=== PATIENT | female | born 1965 | race Caucasian/White ===

== ENCOUNTER 2019-09-29 14:24 | Emergency (ER) | payer BC, SELFPAY ==
[2019-09-29 14:34] VITALS: BP 150/76; PULSE 87; RESP 16; TEMP 36.8; O2SAT 99; BMI 34.5
--- NOTE | 2019-09-29 15:19 | CT_ITS ---
WS: [id number] CT abdomen pelvis w con* [id number] REASON FOR EXAM: abd pain IV CONTRAST ADMINISTERED: 95 mL TOTAL EXAM DLP: 1068.[address] scans at [facility] use at least one of these dose optimization techniques: automat ed exposure control; mA and/or kV adjustment per patient size (includes targeted exams where dose is matched to clinical indication); or iterative reconstruction. FINDINGS: The lower lung siegel are normal. The liver show normal enhancement. No filling defects or masses. The gallbladder appeared to be sonolucent no stones are seen. The pancreas head, body, tail were normal. The spleen was of normal size the liver normal Both adrenal glands were normal no adenomas are seen. The aorta inferior vena cava were normal. Both the right and left kidneys were normal no hydronephrosis no hydroureter no stones. The ureters were patent down to the bladder. The appendix is well identified and not distended. The large and small bowel pattern show normal appearance. The small bowel patterns were normal. The descending colon shows isolated diverticulosis in the sigmoid lower lower descending colon but no definite diverticulitis. The uterus was normal. No adnexal masses. There is fecal stasis in the rectal wall but no masses are seen. The urinary bladder was smooth in outline showed no abnormalities. The lumbar spine was normal other than mild degenerate changes. CT/CT abdomen pelvis w con* [id number] IMPRESSION: Diverticulosis of the lower descending colon sigmoid colon. No diverticulitis.
[2019-09-29 15:20] LABS: Basophils % 0.4 %; Eosinophils # 0.1 10^3/uL (0.0-0.8); Eosinophils % 0.9 %; Hemoglobin 13.1 g/dL (11.5-15.3); Lymphocytes # 2.5 10^3/uL (0.8-4.8); Lymphocytes % 29.5 %; Mean Corpuscular HGB Conc 31.2 g/dL (30.0-36.0); Mean Corpuscular Hemoglobin 28.2 pg (28.0-34.0); Mean Corpuscular Volume 90.5 fL (81-99); Monocytes # 0.6 10^3/uL (0.2-0.9); Monocytes % 7.4 %; Neutrophils # 5.3 10^3/uL (1.8-7.7); Neutrophils % 61.6 %; Nucleated Red Blood Cells % 0 %; Platelet Count 322 10^3/cmm (130-400); Red Blood Count 4.64 10^6/uL (4.1-5.3); Red Cell Distribution Width 12.9 % (12.1-15.1); White Blood Count 8.5 10^3/uL (4.0-10.0)
[2019-09-29 15:24] LABS: Urine Appearance Clear (CLEAR); Urine Color Yellow (Yellow)
[2019-09-29 15:25] LABS: Add Urine Microscopic? YES; Bilirubin Urine Neg (NEGATIVE); Blood Urine 2+ (Negative); Glucose Urine UA Norm (Normal); Ketones Urine Negative (Negative); Leukocyte Esterase Urine Negative (Negative); Nitrate Urine Negative (Negative); Protein Urine Neg (Negative); Specific Gravity, Urine 1.015 (1.005-1.030); Urobilinogen Urine Norm (Negative); pH Urine 5 (5-7)
--- NOTE | 2019-09-29 15:26 | W.ED.BACK ---
HPI - Back Pain/Injury General: Chief Complaint: Back Pain/Injury Stated Complaint: r side/low back pain Time Seen by Provider: 09/29/19 15:02 History of Present Illness: HPI Narrative: 54-year-old female comes in with flank pain that she has had for the last several weeks. Seen Dr. Cooper in the office has 2 rounds of oral antibiotics still seems to keep coming back. She is also been started on a PPI she has noticed that it is a little better when she has food in her stomach little worse when her stomach is empty. She does not notice particular type of foods that worsen it. She has had quite a bit of nausea with it but no vomiting or diarrhea and at various times she had bloating and reflux with it she denies any hematochezia melena hematemesis or coffee-ground emesis. At one point she thought she MD elicited complaint: back pain Pertinent past history: prior back pain Timing: intermittent Severity: severe Similar Symptoms Previously: Yes Quality: sharp and stabbing Associated symptoms: Reports abdominal pain and nausea; Deny chills, change in bowel habits, dysuria, fatigue, fecal incontinence, fever(s), hematuria, urinary frequency, urinary urgency or vomiting Treatments prior to arrival: other medications (PPIs) Review of Systems Const: Denies: fever(s), chills, body aches, change in appetite, fatigue or malaise ENMT: Denies: throat pain, ear or mastoid pain, nasal discharge or nasal congestion Card: Denies: chest pain, edema, dyspnea on exertion or orthopnea Resp: Denies: dyspnea, productive cough or non-productive cough GI: Reports: abdominal pain and nausea; Denies: vomiting, fecal incontinence or change in bowel habits : Denies: dysuria, urinary urgency or hematuria Skin/Breast: Denies: rash or pruritus PFSH ED PFSH: Medical History (Updated 09/29/19 @ 17:47 by Carlos Faustin DO) Achilles tendonitis Follows with Dr. Ma and just takes ibuprofen as needed for pain No pertinent past medical history Denies history of: High Blood Pressure, Diabetes, Heart, Lung, Liver, Kidney, Thyroid, Bleeding Problems, Clotting Problems Her primary care provider is Dr. Cooper. Thickened endometrium Surgical History (Updated 09/29/19 @ 17:27 by Josefina August RN) S/P section 06/24/1989--performed by Dr. Bach at [facility] S/P tubal ligation 06/24/1989--Performed by Dr. Bach at [facility] at time of section. Social History Smoking and tobacco status: former smoker Physical Exam Const: COMMON NORMALS: no acute distress GENERAL APPEARANCE: cooperative and comfortable ORIENTATION/CONSCIOUSNESS: Yes awake, Yes oriented to person, Yes oriented to place and Yes oriented to time HENMT: COMMON NORMALS: normocephalic, atraumatic, hearing grossly normal bilaterally, external ears normal, EAC's normal, TM's normal bilaterally, Normal nasal mucous membranes and turbinates present, moist oral mucous membranes and oropharynx normal HEAD & SCALP: normocephalic and atraumatic NOSE: Normal nasal mucous membranes and turbinates present EXTERNAL EAR: Yes external ears normal EXTERNAL AUDITORY CANAL: EAC's normal TYMPANIC MEMBRANE: TM's normal bilaterally Eye: COMMON NORMALS: Equal, round and reactive pupils present, EOMs intact bilaterally, conjunctivae normal and no scleral icterus CONJUNCTIVA: Yes conjunctivae normal PUPIL: Yes Equal, round and reactive pupils present Neck/C-Spine: COMMON NORMALS: full ROM, no lymphadenopathy, supple and no JVD Lymph: LYMPHATIC: no lymphadenopathy noted and no lymphedema noted Resp: COMMON NORMALS: normal respiratory effort, No retractions, No use of accessory muscles and clear to auscultation bilaterally AUSCULTATION: clear to auscultation bilaterally Cardio: COMMON NORMALS: no JVD, regular rate, regular rhythm and No murmurs present (Cardio) RATE: regular rate RHYTHM: regular rhythm GI: COMMON NORMALS: Soft to palpation and No hepatosplenomegaly present AUSCULTATION: Yes normoactive bowel sounds PALPATION: Yes Soft to palpation, No Tenderness to palpation present (GI), No Guarding due to palpation present (GI) and Yes No hepatosplenomegaly present Extremity: COMMON NORMALS: normal to inspection, capillary refill normal, no clubbing, cyanosis or edema, no calf tenderness and no pedal edema Neuro: SENSORIUM/ORIENTATION: Yes oriented to person, Yes oriented to place and Yes oriented to time Skin: COMMON NORMALS: no rashes or lesions noted GENERAL SKIN EXAM: no rashes or lesions noted Course Vital Signs: Vital signs: Vital Signs Temperature 98.3 F 09/29/19 14:34 Pulse Rate 77 09/29/19 15:33 Respiratory Rate 16 09/29/19 15:33 Blood Pressure 128/72 09/29/19 15:33 Pulse Oximetry 98 09/29/19 15:33 MDM - Back Pain/Injury Lab Data: Labs: Lab Results 09/29/19 09/29/19 09/29/19 Range/Units 14:51 15:15 15:15 WBC 8.5 (4.0-10.0) 10^3/ uL RBC 4.64 (4.1-5.3) 10^6/u L Hgb 13.1 (11.5-15.3) g/dL Hct 42.0 (37.0-47.0) % MCV 90.5 (81-99) fL MCH 28.2 (28.0-34.0) pg MCHC 31.2 (30.0-36.0) g/dL RDW 12.9 (12.1-15.1) % Plt Count 322 (130-400) 10^3/c mm MPV 10.0 (7.4-10.4) fL Neut % (Auto) 61.6 % Lymph % (Auto) 29.5 % [place] % (Auto) 7.4 % Eos % (Auto) 0.9 % Baso % (Auto) 0.4 % Neut # (Auto) 5.3 (1.8-7.7) 10^3/u L Lymph # (Auto) 2.5 (0.8-4.8) 10^3/u L [place] # (Auto) 0.6 (0.2-0.9) 10^3/u L Eos # (Auto) 0.1 (0.0-0.8) 10^3/u L Baso # (Auto) 0.0 (0.0-0.1) 10^3/u L Nucleated RBC % (a uto) 0 % Nucleated RBCs # 0.0 /100WBC Sodium 138 (136-145) mmol/L Potassium 3.9 (3.5-5.1) mmol/L Chloride 100 (98-107) mmol/L Carbon Dioxide 26 (22-29) mmol/L Anion Gap 15.9 (5-19) BUN 16 (6-20) mg/dL Creatinine 0.7 (0.5-0.9) mg/dL GFR Calculation 87.9 L (90-130) mL/min Glucose 101 (65-115) mg/dL Calculated Osmolal ity 282 L (285-295) mOsm/k g Calcium 9.7 (8.5-10.5) mg/dL Total Bilirubin 0.2 (0.15-1.2) mg/dL AST 16 (0-32) U/L ALT 13 (0-33) U/L Alkaline Phosphata se 96 (35-105) IU/L Total Protein 7.2 (6.6-8.7) g/dL Albumin 4.3 (3.5-5.2) g/dL Globulin 2.9 (1.3-4.6) g/dL Urine Color Yellow (Yellow) Urine Appearance Clear (CLEAR) Urine pH 5 (5-7) Ur Specific Gravit y 1.015 (1.005-1.030) Urine Protein Neg (Negative) Urine Glucose (UA) Norm (Normal) Urine Ketones Negative (Negative) Urine Blood 2+ H (Negative) Urine Nitrate Negative (Negative) Urine Bilirubin Neg (NEGATIVE) Urine Urobilinogen Norm (Negative) mg/dL Ur Leukocyte Kay ase Negative (Negative) Urine RBC 5-10 H (0-2) /hpf Urine WBC None (0-5) /hpf Ur Squamous Epith Cells 10-15 H (0-5) Urine Bacteria Trace (NONE) Discharge Plan Discharge Patient Disposition: Home, Self-Care Clinical Impression: Hematuria, Chronic interstitial cystitis Condition: Stable Prescriptions: New nitrofurantoin monohyd/m-cryst [Macrobid] 100 mg capsule 100 mg PO BID 7 Days Qty: 14 RF: 0 No Action Multiple Vitamins Tablet 1 tab PO DAILY RF: 0 pantoprazole 40 mg tablet,delayed release (DR/EC) 40 mg PO BID RF: 0 albuterol sulfate 90 mcg/actuation HFA aerosol inhaler 2 puff INHALATION Q4H PRN (Reason: Shortness Of Breath) RF: 0 Discharge Orders: Discharge Order (Routine); Ordered 09/29/19 Ordered By: Carlos Faustin Referrals: Misbah Cooper DO [Primary Care Provider] - Coding Level of Care Code ED Conductor Pullman for Chg Annamarie
[2019-09-29 15:27] LABS: Add Urine Culture? No; Bacteria Urine TRACE
[2019-09-29 15:33] VITALS: BP 128/72; PULSE 77; RESP 16; O2SAT 98
[2019-09-29 15:35] LABS: Alanine Aminotransferase 13 U/L (0-33); Albumin Level 4.3 g/dL (3.5-5.2); Alkaline Phosphatase 96 IU/L (35-105); Anion Gap 15.9 (5-19); Aspartate Amino Transferase 16 U/L (0-32); Blood Urea Nitrogen 16 mg/dL (6-20); Calcium 9.7 mg/dL (8.5-10.5); Carbon Dioxide 26 mmol/L (22-29); Chloride 100 mmol/L (98-107); Globulin 2.9 g/dL (1.3-4.6); Glomerular Filtration Rate 87.9 mL/min (90-130); Glucose 101 mg/dL (65-115); Osmolality Calculated 282 mOsm/kg (285-295); Potassium 3.9 mmol/L (3.5-5.1); Sodium 138 mmol/L (136-145); Total Bilirubin 0.2 mg/dL (0.15-1.2); Total Protein 7.2 g/dL (6.6-8.7)
[2019-09-29] MEDS: sodium chloride 0.9% 1,000 ML 999 ML IV (15:44)
--- NOTE | 2019-09-29 16:00 | PC.NURSE ---
pt in CT by stretcher with tech
[2019-09-29] MEDS: iohexol 300 mg/mL 100 mL Btl IV (16:01)
[2019-09-29 17:47] VITALS: BP 134/73; PULSE 79; O2SAT 99
[2019-09-29 18:39] VITALS: BP 134/73; PULSE 75; RESP 17; O2SAT 98
== END 2019-09-29 18:39 | disposition home or self-care (01) ==
PROVIDERS: Emergency Provider Family Medicine; Family Provider Electrodiagnostic Medicine; PCP Electrodiagnostic Medicine
DX: N30.11 Interstitial cystitis (chronic) with hematuria (principal); Z87.891 Personal history of nicotine dependence
CPT/HCPCS: 12345; 36415; 74177; 80053; 81001; 85025; 96360; 99282; 99283; J7030; Q9967

== ENCOUNTER 2019-10-25 06:40 | Outpatient (CLI) | payer BC, SELFPAY ==
--- NOTE | 2019-10-25 08:00 | US_ITS ---
WS: [id number] ULTRASOUND ABDOMEN CLINICAL INFORMATION: RUQ ABD PAIN COMPARISON: Ultrasound 2014 FINDINGS: Liver Size: Normal. Craniocaudal length: 15.4 cm. Echogenicity: Diffuse fatty infiltration Surface nodularity: None. Mass (size and location): None. Bile ducts Intrahepatic ducts: Normal. Common bile duct diameter: 0.3 cm. Gallbladder Small gallbladder polyp unchanged since 2014 Gallstones: None. Gallbladder sludge: None. Gallbladder wall thickening: None. Pericholecystic fluid: None. Sonographic Mary sign: Absent. Pancreas Normal as visualized. Spleen Splenomegaly: None. Craniocaudal length: 9.6 cm. Right kidney: Normal. Hydronephrosis: None. Size: 10.8 cm x 4.1 cm x 5.8 cm Left kidney: Left renal cyst measuring 1.3 x 1.3 cm Hydronephrosis: None. Size: 10.6 cm x 5.4 cm x 4.7 cm. Abdominal aorta and IVC Visualized portions are normal. Ascites: None. US/US abdomen complete* [id number] IMPRESSION: 1. Mild diffuse fatty infiltration of the liver. 2. Small gallbladder polyp unchanged since 2014 3. Left renal cyst measuring 1.3 CM.
== END 2019-10-25 06:41 | disposition home or self-care (01) ==
PROVIDERS: Family Provider Electrodiagnostic Medicine; PCP Electrodiagnostic Medicine; Visit Provider Electrodiagnostic Medicine
DX: R10.9 Unspecified abdominal pain (principal); G89.29 Other chronic pain
CPT/HCPCS: 76700

== ENCOUNTER 2019-11-26 11:04 | Emergency (ER) | payer BC, SELFPAY ==
[2019-11-26 11:10] VITALS: BP 153/76; PULSE 82; RESP 16; TEMP 36.9; O2SAT 96; BMI 32.9
--- NOTE | 2019-11-26 11:10 | PC.NURSE ---
Patient given urine cup at this time. Patient educated correct way to collect clean catch urine.
[2019-11-26 12:38] LABS: Basophils % 0.4 %; Eosinophils % 0.4 %; Hematocrit 44.5 % (37.0-47.0); Hemoglobin 13.8 g/dL (11.5-15.3); Lymphocytes % 27.4 %; Mean Corpuscular Hemoglobin 28.2 pg (28.0-34.0); Mean Corpuscular Volume 90.8 fL (81-99); Mean Platelet Volume 10.2 fL (7.4-10.4); Monocytes # 0.5 10^3/uL (0.2-0.9); Monocytes % 6.1 %; Neutrophils # 4.83 10^3/uL (1.8-7.7); Neutrophils % 65.6 %; Nucleated Red Blood Cells % 0 %; Platelet Count 309 10^3/cmm (130-400); Red Cell Distribution Width 12.5 % (12.1-15.1); White Blood Count 7.4 10^3/uL (4.0-10.0)
--- NOTE | 2019-11-26 12:53 | W.ED.BACK ---
HPI - Back Pain/Injury General: Chief Complaint: Back Pain/Injury Stated Complaint: LOW BACK PAIN Time Seen by Provider: 11/26/19 12:22 History of Present Illness: HPI Narrative: Patient complains about chronic low back pain radiating to the right abdomen area since August elicited complaint: back pain Pertinent past history: prior back pain Onset (ago): month(s) Timing: intermittent Severity: mild Quality: aching Associated symptoms: Reports no associated symptoms and abdominal pain; Deny chills, fever(s), nausea or vomiting Review of Systems Const: Denies: fever(s), chills or body aches Eyes: Denies: change in vision or blurry vision ENMT: Denies: throat pain or nasal congestion Card: Denies: chest pain or dyspnea on exertion Resp: Denies: dyspnea, productive cough or non-productive cough GI: Reports: abdominal pain and other (Right flank pain); Denies: nausea or vomiting Musc: Reports: back pain (Pain with getting out of a chair and sitting in chair her low back); Denies: extremity pain Skin/Breast: Denies: rash Neuro: Denies: headache(s) Psych: Denies: anxiety or depression Slava/Lymph: Denies: easy bruising PFSH ED PFSH: Medical History (Updated 11/26/19 @ 13:20 by HOLLY Jacobo) No pertinent past medical history Denies history of: High Blood Pressure, Diabetes, Heart, Lung, Liver, Kidney, Thyroid, Bleeding Problems, Clotting Problems Her primary care provider is Dr. Cooper. Surgical History S/P section 06/24/1989--performed by Dr. Bach at [facility] S/P tubal ligation 06/24/1989--Performed by Dr. Bach at [facility] at time of section. Family History Mother Diabetes Heart disease Stroke Sister Lung cancer Other Hypertension Denies family history of Colon cancer Ovarian cancer Hyperlipidemia Breast cancer Uterine cancer Thyroid condition Social History (Updated 10/04/19 @ 18:14 by Lilli Cheek MD) Smoking and tobacco status: former smoker Additional social history: - Tobacco Use: Smoked 1 pack of cigarettes a week as a teenager quit at the age of 21 and denies any tobacco use since then. Drug Use: Denies Alcohol Use: Denies Work/Study Status: Does not work Physical Exam Const: COMMON NORMALS: no acute distress, average body habitus and patient oriented x3 HENMT: COMMON NORMALS: normocephalic HEAD & SCALP: normal to inspection and normocephalic FACE & SINUS: normal facial exam Eye: COMMON NORMALS: conjunctivae normal GENERAL EYE: appearance normal, both eyes and all related structures CONJUNCTIVA: Yes conjunctivae normal Neck/C-Spine: COMMON NORMALS: no JVD Chest: COMMONS NORMALS: normal inspection of the chest Resp: COMMON NORMALS: normal respiratory effort Cardio: COMMON NORMALS: no JVD GI: COMMON NORMALS: Normal to inspection, nondistended, normoactive bowel sounds present Extremity: COMMON NORMALS: normal to inspection and full ROM Neuro: COMMON NORMALS: patient oriented x3 Course Vital Signs: Vital signs: Vital Signs Temperature 98.4 F 11/26/19 11:10 Pulse Rate 82 11/26/19 11:10 Respiratory Rate 16 11/26/19 11:10 Blood Pressure 153/76 11/26/19 11:10 Pulse Oximetry 96 11/26/19 11:10 MDM - Back Pain/Injury MDM Narrative: Medical decision making narrative: Urine cytology was ordered via the lab. I explained to the patient that we had to rule out any kind of cancer also with the onset hematuria. Also discussed that possibly could be a bulging disc in her low back that could be causing her pain that radiated. Lab Data: Labs: Lab Results 11/26/19 11/26/19 11/26/19 Range/Units 11:24 12:15 12:15 WBC 7.4 (4.0-10.0) 10^3/ uL RBC 4.90 (4.1-5.3) 10^6/u L Hgb 13.8 (11.5-15.3) g/dL Hct 44.5 (37.0-47.0) % MCV 90.8 (81-99) fL MCH 28.2 (28.0-34.0) pg MCHC 31.0 (30.0-36.0) g/dL RDW 12.5 (12.1-15.1) % Plt Count 309 (130-400) 10^3/c mm MPV 10.2 (7.4-10.4) fL Neut % (Auto) 65.6 % Lymph % (Auto) 27.4 % [place] % (Auto) 6.1 % Eos % (Auto) 0.4 % Baso % (Auto) 0.4 % Neut # (Auto) 4.83 (1.8-7.7) 10^3/u L Lymph # (Auto) 2.0 (0.8-4.8) 10^3/u L [place] # (Auto) 0.5 (0.2-0.9) 10^3/u L Eos # (Auto) 0.0 (0.0-0.8) 10^3/u L Baso # (Auto) 0.0 (0.0-0.1) 10^3/u L Nucleated RBC % (a uto) 0 % Nucleated RBCs # 0.0 /100WBC Sodium 140 (136-145) mmol/L Potassium 3.5 (3.5-5.1) mmol/L Chloride 102 (98-107) mmol/L Carbon Dioxide 26 (22-29) mmol/L Anion Gap 15.5 (5-19) BUN 19 (6-20) mg/dL Creatinine 0.8 (0.5-0.9) mg/dL GFR Calculation 75.0 L (90-130) mL/min Glucose 119 H (65-115) mg/dL Calculated Osmolal ity 288 (285-295) mOsm/k g Calcium 9.5 (8.5-10.5) mg/dL Total Bilirubin 0.2 (0.15-1.2) mg/dL AST 15 (0-32) U/L ALT 12 (0-33) U/L Alkaline Phosphata se 110 H (35-105) IU/L Total Protein 7.8 (6.6-8.7) g/dL Albumin 4.4 (3.5-5.2) g/dL Globulin 3.4 (1.3-4.6) g/dL Urine Color Yellow (Yellow) Urine Appearance Clear (CLEAR) Urine pH 5.0 (5-7) Ur Specific Gravit y 1.010 (1.005-1.030) Urine Protein Neg (Negative) Urine Glucose (UA) Norm (Normal) Urine Ketones Negative (Negative) Urine Blood 2+ H (Negative) Urine Nitrate Negative (Negative) Urine Bilirubin Neg (NEGATIVE) Urine Urobilinogen Norm (Negative) mg/dL Ur Leukocyte Kay ase Negative (Negative) Urine RBC 5-10 H (0-2) /hpf Urine WBC None (0-5) /hpf Ur Squamous Epith Cells 15-25 H (0-5) Amorphous Sediment Not Reportable Urine Bacteria Trace (NONE) Discharge Plan Discharge Patient Disposition: Home Clinical Impression: Hematuria Qualifiers: Hematuria type: benign essential microscopic Qualified Code(s): R31.1 - Benign essential microscopic hematuria Condition: Stable Prescriptions: No Action Multiple Vitamins Tablet 1 tab PO DAILY RF: 0 pantoprazole 40 mg tablet,delayed release (DR/EC) 40 mg PO BID RF: 0 albuterol sulfate 90 mcg/actuation HFA aerosol inhaler 2 puff INHALATION Q4H PRN (Reason: Shortness Of Breath) RF: 0 Discharge Orders: Discharge Order (Routine); Ordered 11/26/19 Ordered By: Benitez Gonzales Referrals: Misbah Cooper DO [Primary Care Provider] - Discharge Diet: Usual diet Discharge Activity: Resume usual activity Patient Instructions: Hematuria - Female Activity Restrictions/Additional Instructions: Follow-up with Dr. Cooper see about getting referral to Dr. Christiansen for onset of hematuria. Await lab results for cytology on the urine. Can visit chiropractor right now to see if that would help with possibility of bulging disc in the back. Coding Level of Care Code ED Card Cutter Helper for Rafia Fwd Exam Comprehensive
[2019-11-26 12:56] LABS: Alanine Aminotransferase 12 U/L (0-33); Albumin Level 4.4 g/dL (3.5-5.2); Alkaline Phosphatase 110 IU/L (35-105); Anion Gap 15.5 (5-19); Aspartate Amino Transferase 15 U/L (0-32); Blood Urea Nitrogen 19 mg/dL (6-20); Calcium 9.5 mg/dL (8.5-10.5); Carbon Dioxide 26 mmol/L (22-29); Chloride 102 mmol/L (98-107); Globulin 3.4 g/dL (1.3-4.6); Glucose 119 mg/dL (65-115); Osmolality Calculated 288 mOsm/kg (285-295); Potassium 3.5 mmol/L (3.5-5.1); Sodium 140 mmol/L (136-145); Total Bilirubin 0.2 mg/dL (0.15-1.2); Total Protein 7.8 g/dL (6.6-8.7)
[2019-11-26 13:04] LABS: Add Urine Microscopic? YES; Bilirubin Urine Neg (NEGATIVE); Blood Urine 2+ (Negative); Glucose Urine UA Norm (Normal); Ketones Urine Negative (Negative); Leukocyte Esterase Urine Negative (Negative); Nitrate Urine Negative (Negative); Protein Urine Neg (Negative); Urine Appearance Clear (CLEAR); Urine Color Yellow (Yellow); Urobilinogen Urine Norm (Negative)
[2019-11-26 13:05] LABS: Add Urine Culture? No; Bacteria Urine TRACE; Squamous Epithelial Cell Urine 15-25 (0-5)
[2019-11-26 13:46] VITALS: BP 144/92; PULSE 88; RESP 17; O2SAT 98
== END 2019-11-26 13:48 | disposition home or self-care (01) ==
PROVIDERS: Emergency Provider Nurse Practitioner Family; PCP Electrodiagnostic Medicine
DX: R31.1 Benign essential microscopic hematuria (principal); Z87.891 Personal history of nicotine dependence
CPT/HCPCS: 12345; 80053; 81001; 81003; 85025; 88112; 99281; 99282

== ENCOUNTER 2019-12-06 10:24 | Outpatient (CLI) | payer BC, SELFPAY ==
--- NOTE | 2019-12-06 10:30 | XRR_ITS ---
PROCEDURE INFORMATION: Exam: XR Lumbosacral Spine, 2 or 3 Views Exam date and time: 12/06/2019 10:50 AM Age: 54 years old Clinical indication: Sciatica and other: Hematuria; Left; Low back pain; Additional info: Back pain w/radiculopathy/hematuria/left sciatica TECHNIQUE: Imaging protocol: XR of the lumbosacral spine, 2 or 3 views. COMPARISON: CT abdomen pelvis w con* [id number] 09/29/2019 3:46 PM FINDINGS: Vertebrae: The lumbar vertebral bodies maintain height and alignment. No significant disc space narrowing, but there are small multilevel marginal osteophytes. Facet arthropathy present at L4-L5 and L5-S1. No acute fracture. Soft tissues: No acute soft tissue abnormality. XR/XR lumbar spine 2-3V* [id number] IMPRESSION: No acute osseous abnormality.
== END 2019-12-06 10:25 | disposition home or self-care (01) ==
LOC: RAD 10:28
PROVIDERS: PCP Electrodiagnostic Medicine; Visit Provider Electrodiagnostic Medicine
DX: M54.5 Low back pain (principal); M54.16 Radiculopathy, lumbar region; R31.9 Hematuria, unspecified; R10.9 Unspecified abdominal pain; M54.32 Sciatica, left side
CPT/HCPCS: 72100

== ENCOUNTER 2019-12-09 14:28 | Outpatient (CLI) | payer BC, SELFPAY ==
--- NOTE | 2019-12-09 15:00 | MM_ITS ---
WS: [id number] BILATERAL DIGITAL SCREENING MAMMOGRAPHY WITH CAD CLINICAL INFORMATION: screening HISTORY: Screening mammogram. No current complaints. COMPARISON: TECHNIQUE: Bilateral CC and MLO views. FINDINGS: The breasts are composed of heterogeneous fibroglandular density tissue, which can limit the detectio n of small underlying mass lesions. No suspicious mass, asymmetry, calcifications, or architectural d istortion. No evidence of malignancy. Punctate and lucent centered calcifications. MM/[place] [id number] IMPRESSION: BI-RADS: 2-Benign FOLLOW UP: 1 Year Follow-up Recommend return to annual screening mammography.
== END 2019-12-09 14:29 | disposition home or self-care (01) ==
LOC: RADSHAW 14:33
PROVIDERS: PCP Electrodiagnostic Medicine; Visit Provider Obstetrics & Gynecology
DX: Z12.31 Encounter for screening mammogram for malignant neoplasm of breast (principal)
CPT/HCPCS: 77067

== ENCOUNTER 2019-12-13 06:53 | Outpatient (CLI) | payer BC, SELFPAY ==
--- NOTE | 2019-12-13 07:37 | MR_ITS ---
WS: [id number] MRI LUMBAR SPINE NONCONTRAST HISTORY: LUMBAR DISC DISPLACEMENT, LUMBAR BACK PAIN W/RADICULOPATHY COMPARISON: None available. TECHNIQUE: Sagittal and axial multisequence imaging is submitted. Mild increase in thoracic kyphosis. Normal lumbar alignment with no compression fractures or marrow edema. Mild disc desiccation at L5-S1 without significant narrowing. Conus terminates normally at L1. L1-L2: Normal. L2-L3: Mild facet arthritis. No stenosis. L3-L4: Mild facet arthritis without stenosis. L4-L5: Mild annular disc bulging and osteophytic ridging. Mild ligamentum flavum hypertrophy and face t arthritis. Fluid in the facet joints. Very mild encroachment into the foramen and subarticular rece sses, slightly greater on the LEFT. No significant stenosis. L5-S1: Mild annular disc bulging. This is shallow central disc protrusion which is not contacting the thecal sac but the nerve roots. There is an annular fissure associated with the disc protrusion. Sma ll amount of fluid in the facet joints. Very mild narrowing of the LEFT foramen. Facet joint arthriti s greatest on the RIGHT. MR/MR lumbar spine wo con* [id number] IMPRESSION: 1. No significant high-grade central or foraminal stenosis. 2. Shallow central disc protrusion with annular fissure at L5-S1 without cord or nerve root contact. 3. Facet joint arthritis throughout the lumbar spine but most significant at L 5-S1 and greatest on the RIGHT. 4. Mild subarticular recess and foraminal encroachment at L4-5 without signifi cant stenosis.
== END 2019-12-13 06:54 | disposition home or self-care (01) ==
PROVIDERS: PCP Electrodiagnostic Medicine; Visit Provider Electrodiagnostic Medicine
DX: M51.26 Other intervertebral disc displacement, lumbar region (principal); M54.16 Radiculopathy, lumbar region; M51.27 Other intervertebral disc displacement, lumbosacral region
CPT/HCPCS: 72148

== ENCOUNTER → 2019-12-21 14:36 | Outpatient (BNVA) | payer BC, SELFPAY | PROVIDERS: PCP Electrodiagnostic Medicine; Visit Provider Urology | DX: R31.9 Hematuria, unspecified (principal); R33.8 Other retention of urine; N30.20 Other chronic cystitis without hematuria; N39.9 Disorder of urinary system, unspecified | CPT/HCPCS: 81001 ==

== ENCOUNTER → 2020-02-02 16:01 | Outpatient (BNVA) | payer BC, SELFPAY | PROVIDERS: PCP Electrodiagnostic Medicine; Visit Provider Urology | DX: N30.20 Other chronic cystitis without hematuria (principal) | CPT/HCPCS: 81001 ==

== ENCOUNTER → 2020-03-16 09:03 | Outpatient (BNVA) | payer BC, SELFPAY | PROVIDERS: PCP Electrodiagnostic Medicine; Visit Provider Nurse Practitioner Family | DX: N30.20 Other chronic cystitis without hematuria (principal) | CPT/HCPCS: 81003 ==

== ENCOUNTER → 2020-05-18 08:02 | Outpatient (BNVA) | payer OTHER, SELFPAY | PROVIDERS: PCP Electrodiagnostic Medicine; Visit Provider Urology | DX: N30.80 Other cystitis without hematuria (principal) | CPT/HCPCS: 81003 ==

== ENCOUNTER → 2020-06-01 16:30 | Outpatient (BNVA) | payer OTHER, SELFPAY | PROVIDERS: PCP Electrodiagnostic Medicine; Visit Provider Nurse Practitioner Family | DX: N30.20 Other chronic cystitis without hematuria (principal) | CPT/HCPCS: 81003; 87086 ==

== ENCOUNTER → 2020-06-12 10:23 | Outpatient (BNVA) | payer OTHER, SELFPAY | PROVIDERS: PCP Electrodiagnostic Medicine; Visit Provider Nurse Practitioner Family | DX: N30.20 Other chronic cystitis without hematuria (principal) | CPT/HCPCS: 81003 ==

== ENCOUNTER → 2020-07-19 09:43 | Outpatient (BNVA) | payer OTHER, SELFPAY | PROVIDERS: PCP Electrodiagnostic Medicine; Visit Provider Nurse Practitioner Family | DX: N30.20 Other chronic cystitis without hematuria (principal) | CPT/HCPCS: 81003; 87086 ==

== ENCOUNTER → 2020-07-25 08:17 | Outpatient (BNVA) | payer OTHER, SELFPAY | PROVIDERS: PCP Electrodiagnostic Medicine; Visit Provider Urology | DX: N30.20 Other chronic cystitis without hematuria (principal) | CPT/HCPCS: 81003 ==

== ENCOUNTER → 2020-09-07 07:45 | Outpatient (BNVA) | payer OTHER, SELFPAY | PROVIDERS: PCP Electrodiagnostic Medicine; Visit Provider Urology | DX: N30.20 Other chronic cystitis without hematuria (principal) | CPT/HCPCS: 81003 ==

== ENCOUNTER → 2020-10-09 13:10 | Outpatient (BNVA) | payer OTHER, SELFPAY | PROVIDERS: PCP Electrodiagnostic Medicine; Visit Provider Obstetrics & Gynecology | DX: Z12.4 Encounter for screening for malignant neoplasm of cervix (principal) | CPT/HCPCS: 88175 ==

== ENCOUNTER → 2020-10-31 09:57 | Outpatient (BNVA) | payer OTHER, SELFPAY | PROVIDERS: PCP Electrodiagnostic Medicine; Visit Provider Urology | DX: N30.20 Other chronic cystitis without hematuria (principal) | CPT/HCPCS: 81003 ==

== ENCOUNTER → 2020-11-04 13:29 | Outpatient (BNVA) | payer OTHER, SELFPAY | PROVIDERS: PCP Electrodiagnostic Medicine; Visit Provider Nurse Practitioner Family | DX: Z20.822 Contact with and (suspected) exposure to COVID-19 (principal) | CPT/HCPCS: 87635 ==

== ENCOUNTER 2020-12-11 06:00 | Outpatient (CLI) | payer OTHER, SELFPAY | END 2020-12-11 06:01 | disposition home or self-care (01) | LOC: LAB 12-15 13:45 | PROVIDERS: PCP Electrodiagnostic Medicine; Visit Provider Urology | DX: N30.20 Other chronic cystitis without hematuria (principal) | CPT/HCPCS: 81003 ==

== ENCOUNTER → 2021-01-26 09:35 | Outpatient (BNVA) | payer OTHER, SELFPAY | PROVIDERS: PCP Electrodiagnostic Medicine; Visit Provider Nurse Practitioner Family | DX: N30.20 Other chronic cystitis without hematuria (principal) | CPT/HCPCS: 81003; 87086 ==

== ENCOUNTER → 2021-02-20 16:56 | Outpatient (BNVA) | payer OTHER, SELFPAY | PROVIDERS: PCP Electrodiagnostic Medicine; Visit Provider Obstetrics & Gynecology | DX: L29.2 Pruritus vulvae (principal) | CPT/HCPCS: 88305 ==

== ENCOUNTER 2021-03-05 08:10 | Outpatient (CLI) | payer OTHER, SELFPAY ==
--- NOTE | 2021-03-05 08:16 | MR_ITS ---
WS: [id number] MRI LUMBAR SPINE NONCONTRAST HISTORY: LT HIP Pain; lumbar BACK PAIN W/radiculopathy; lumbar DISC COMPARISON: 12/13/2019 TECHNIQUE: Sagittal and axial multisequence imaging is submitted. Mild disc bulging and osteophytosis in the cervical spine with mild encroachment upon the ventral the melanie sac at several levels. Posterior lumbar alignment is normal. Disc spaces are well preserved. Mild desiccation at L5-S1. No marrow edema or fracture. Conus terminates normally at L1-2 disc level. L1-L2: Normal. L2-L3: Normal. L3-L4: Very mild facet and ligamentum flavum hypertrophy. No significant stenosis. L4-L5: Mild annular disc bulging and minimal osteophytic ridging. Annular disc bulging causing mild e ncroachment upon the traversing L5 nerve roots but no displacement or high-grade stenosis. Mild bilat eral facet joint arthritis and foraminal narrowing. L5-S1: Mild disc bulging with a central disc protrusion. Mild bilateral facet and ligamentum flavum a rthritis. No high-grade stenosis. Very minimal narrowing of the foramen. Normal paravertebral soft tissues. MR/MR lumbar spine wo con* [id number] IMPRESSION: 1. No significant central or foraminal stenosis. 2. Small central disc protrusion at L5-S1. The disc protrusion has slightly de creased in size since 12/13/2019. Mild foraminal narrowing. 3. Mild facet joint arthritis at L4-5 and L5-S1 similar to the prior study. 4. Mild bilateral foraminal narrowing at L4-5.
== END 2021-03-05 08:11 | disposition home or self-care (01) ==
LOC: RADSHAW 08:12
PROVIDERS: PCP Electrodiagnostic Medicine; Visit Provider Electrodiagnostic Medicine
DX: M54.16 Radiculopathy, lumbar region (principal); M51.26 Other intervertebral disc displacement, lumbar region; M54.32 Sciatica, left side; M51.27 Other intervertebral disc displacement, lumbosacral region; M47.816 Spondylosis without myelopathy or radiculopathy, lumbar region; M47.817 Spondylosis without myelopathy or radiculopathy, lumbosacral region
CPT/HCPCS: 72148

== ENCOUNTER → 2021-03-14 10:55 | Outpatient (BNVA) | payer OTHER, SELFPAY | PROVIDERS: PCP Electrodiagnostic Medicine; Visit Provider Urology | DX: N30.20 Other chronic cystitis without hematuria (principal) | CPT/HCPCS: 81003 ==

== ENCOUNTER → 2021-05-14 09:50 | Outpatient (BNVA) | payer OTHER, SELFPAY | PROVIDERS: PCP Electrodiagnostic Medicine; Visit Provider Nurse Practitioner Family | DX: N30.20 Other chronic cystitis without hematuria (principal) | CPT/HCPCS: 81003 ==

== ENCOUNTER → 2021-07-17 12:44 | Outpatient (BNVA) | payer OTHER, SELFPAY | PROVIDERS: PCP Electrodiagnostic Medicine; Visit Provider Urology | DX: N30.20 Other chronic cystitis without hematuria (principal) | CPT/HCPCS: 81003 ==

== ENCOUNTER → 2021-10-02 12:48 | Outpatient (BNVA) | payer OTHER, SELFPAY | PROVIDERS: PCP Electrodiagnostic Medicine; Visit Provider Urology | DX: N30.20 Other chronic cystitis without hematuria (principal); L29.2 Pruritus vulvae | CPT/HCPCS: 81003 ==

== ENCOUNTER 2021-11-05 14:50 | Outpatient (CLI) | payer OTHER, SELFPAY ==
--- NOTE | 2021-11-05 14:57 | MM_ITS ---
WS: [id number] BILATERAL 3D TOMOSYNTHESIS DIGITAL SCREENING MAMMOGRAPHY WITH CAD CLINICAL INFORMATION: Z12.39 - Encounter for other screening for malignant neop... HISTORY: Screening mammogram. No current complaints. COMPARISON: December 09, 2019 TECHNIQUE: Bilateral CC and MLO views. FINDINGS: Scattered fibroglandular densities bilaterally. Punctate and lucent centered calcifications. No suspi cious focal mass, asymmetry, calcifications, or architectural distortion. No evidence of malignancy. MM/[place] [id number] IMPRESSION: BI-RADS: 2-Benign FOLLOW UP: 1 Year Follow-up Recommend return to annual screening mammography.
== END 2021-11-05 14:51 | disposition home or self-care (01) ==
LOC: RAD 14:51
PROVIDERS: PCP Electrodiagnostic Medicine; Visit Provider Obstetrics & Gynecology
DX: Z12.31 Encounter for screening mammogram for malignant neoplasm of breast (principal)
CPT/HCPCS: 77063; 77067

== ENCOUNTER → 2021-12-05 10:02 | Outpatient (BNVA) | payer OTHER, SELFPAY | PROVIDERS: PCP Electrodiagnostic Medicine; Visit Provider Nurse Practitioner Family | DX: N30.20 Other chronic cystitis without hematuria (principal) | CPT/HCPCS: 81003; 87086 ==

== ENCOUNTER → 2022-01-01 10:19 | Outpatient (BNVA) | payer OTHER, SELFPAY | PROVIDERS: PCP Electrodiagnostic Medicine; Visit Provider Urology | DX: N30.20 Other chronic cystitis without hematuria (principal); N94.819 Vulvodynia, unspecified | CPT/HCPCS: 81003 ==

== ENCOUNTER 2022-03-02 12:47 | Emergency (ER) | payer OTHER, SELFPAY ==
[2022-03-02 12:50] VITALS: BP 150/82; PULSE 85; RESP 16; TEMP 36.4; O2SAT 99; BMI 34.7
[2022-03-02 13:19] VITALS: BP 165/85; PULSE 105; RESP 97; O2SAT 97
--- NOTE | 2022-03-02 13:32 | CTR_ITS ---
PROCEDURE INFORMATION: Exam: CT Abdomen And Pelvis Without Contrast Exam date and time: 03/02/2022 1:47 PM Age: 56 years old Clinical indication: Abdominal pain; Additional info: Flank pain R TECHNIQUE: Imaging protocol: Computed tomography of the abdomen and pelvis without contrast. Radiation optimization: All CT scans at this facility use at least one of these dose optimization techniques: automated exposure control; mA and/or kV adjustment per patient size (includes targeted exams where dose is matched to clinical indication); or iterative reconstruction. COMPARISON: CT abdomen pelvis w con* [id number] 09/29/2019 3:46 PM RADIATION DOSE METRICS: Total DLP (mGy-cm): 833.41 FINDINGS: Detailed evaluation of the abdominal and pelvic viscera is somewhat limited in the absence of intravenous contrast. Lungs: Mild parenchymal stranding in the right middle lobe and lingula. Liver: Fatty infiltration of the liver. Gallbladder and bile ducts: Cholelithiasis. Pancreas: No pancreatic mass or ductal dilatation. Spleen: No splenomegaly. Adrenal glands: Mild adrenal nodularity. Kidneys and ureters: Normal renal morphology. No hydronephrosis or urolithiasis. Stomach and bowel: Questionable wall thickening in the nondistended stomach and colon. Diverticula, without pericolonic inflammation. Appendix: No acute appendicitis. Intraperitoneal space: No significant free fluid. Vasculature: Normal caliber of the abdominal aorta. Lymph nodes: Subcentimeter lymph nodes. Urinary bladder: Mild bladder wall thickening. Reproductive: Endocervical air. Bones/joints: Mild degenerative change. Soft tissues: Small umbilical hernia. CT/CT kidney stone [id number] IMPRESSION: 1. Cholelithiasis. 2. No hydronephrosis or urolithiasis. 3. Additional findings as described above.
--- NOTE | 2022-03-02 13:33 | W.ED.BACK ---
HPI - Back Pain/Injury General: Chief Complaint: Back Pain/Injury Stated Complaint: back/side pain Time Seen by Provider: 03/02/22 13:22 Source: patient Mode of arrival: ambulatory Limitations: no limitations History of Present Illness: 56-year-old female states she been having right flank pain over the last 5 days she states it wraps into her upper and lower abdomen on the right side. States been intermittent in nature pains a 4 out of 10 its dull ache she states. She denies any dysuria today she had some nausea denies vomiting denies any worsening improving factors. She denies any fevers. Associated symptoms: Reports abdominal pain and nausea; Deny chills or fever(s) Review of Systems Const: Denies: fever(s), chills, body aches or change in appetite Eyes: Denies: blurry vision or eye discomfort ENMT: Denies: throat pain or dental pain Card: Denies: chest pain Resp: Denies: dyspnea GI: Reports: abdominal pain and nausea : Reports: flank pain Musc: Denies: neck pain or back pain Skin/Breast: Denies: rash Neuro: Denies: headache(s) Psych: Denies: depression Slava/Lymph: Denies: easy bruising All/Imm: Denies: urticaria PFSH ED PFSH: Medical History Anxiety Controlled on p.o. pain medication as needed managed by PMD Chronic back pain Managed by pain medication by PMD and pain management Chronic cystitis Diagnosed in [address] Christiansen No pertinent past medical history Denies diabetes, asthma, hypertension, seizures, DVT/PE Her primary care provider is Dr. Cooper. Vulvodynia Surgical History S/P section 06/24/1989--performed by Dr. Bach at [facility] S/P tubal ligation 06/24/1989--Performed by Dr. Bach at [facility] at time of section. Family History Mother , at age 92 Diabetes Heart disease Stroke Alzheimer disease Sister Lung cancer Father , at age 89 COPD (chronic obstructive pulmonary disease) Denies family history of Colon cancer Ovarian cancer Hyperlipidemia Breast cancer Uterine cancer Thyroid condition Social History Lives independently: Yes Household members: spouse Marital status: Current occupational status: retired History of recent travel: No Physical Exam Const: COMMON NORMALS: no acute distress, patient oriented x3 and healthy appearing HENMT: COMMON NORMALS: normocephalic and atraumatic HEAD & SCALP: normocephalic and atraumatic Eye: COMMON NORMALS: Equal, round and reactive pupils present and EOMs intact bilaterally PUPIL: Yes Equal, round and reactive pupils present Neck/C-Spine: COMMON NORMALS: full ROM and supple Chest: COMMONS NORMALS: normal inspection of the chest and normal palpation of entire chest wall Resp: COMMON NORMALS: normal respiratory effort, No retractions, No use of accessory muscles and clear to auscultation bilaterally AUSCULTATION: clear to auscultation bilaterally Cardio: COMMON NORMALS: regular rate, regular rhythm and No murmurs present (Cardio) RATE: regular rate RHYTHM: regular rhythm GI: COMMON NORMALS: Normal to inspection, nondistended, normoactive bowel sounds present, Soft to palpation, non-tender and no masses PALPATION: Yes Soft to palpation Extremity: COMMON NORMALS: normal to inspection and full ROM Neuro: COMMON NORMALS: patient oriented x3, moves all extremities and no focal motor deficits Psych: COMMON NORMALS: mental status grossly normal, Normal thought process present and cooperative THOUGHT PROCESS: Normal thought process present Skin: COMMON NORMALS: no rashes or lesions noted and no wounds GENERAL SKIN EXAM: no rashes or lesions noted Course Vital Signs: Vital signs: Vital Signs Temperature 97.5 F L 03/02/22 12:50 Pulse Rate 105 H 03/02/22 13:19 Respiratory Rate 17 03/02/22 13:58 Blood Pressure 165/85 03/02/22 13:19 Pulse Oximetry 98 03/02/22 13:58 Oxygen Delivery Me thod 03/02/22 13:19 MDM - Back Pain/Injury Medical Decision Making Patient presents here with abdominal pain likely biliary colic from gallstones she has no signs of cholecystitis we will get her follow-up with surgery her pain is resolved currently we will place her on pain meds she also has a UTI will start on Keflex she is return if worsening. Labs : 03/02/22 13:40 03/02/22 13:40 Radiology Impressions Abdomen/Pelvis CT 03/02/22 13:32 IMPRESSION: 1. Cholelithiasis. 2. No hydronephrosis or urolithiasis. 3. Additional findings as described above. Gallbladder Ultrasound 03/02/22 14:31 IMPRESSION: Cholelithiasis and echogenic bile in the gallbladder. Laboratory Results WBC 9.3 10^3/uL (4.0-10.0) 03/02/22 13:40 RBC 4.85 10^6/uL (4.1-5.3) 03/02/22 13:40 Hgb 13.9 g/dL (11.5-15.3) 03/02/22 13:40 Hct 43.2 % (37.0-47.0) 03/02/22 13:40 MCV 89.1 fl (81-99) 03/02/22 13:40 MCH 28.7 pg (28.0-34.0) 03/02/22 13:40 MCHC 32.2 g/dL (30.0-36.0) 03/02/22 13:40 RDW 12.9 % (12.1-15.1) 03/02/22 13:40 Plt Count 377 10^3/cmm (130-400) 03/02/22 13:40 MPV 9.7 fL (7.4-10.4) 03/02/22 13:40 Neut % (Auto) 60.9 % 03/02/22 13:40 Lymph % (Auto) 30.6 % 03/02/22 13:40 [place] % (Auto) 7.1 % 03/02/22 13:40 Eos % (Auto) 0.9 % 03/02/22 13:40 Baso % (Auto) 0.3 % 03/02/22 13:40 Neut # (Auto) 5.66 10^3/uL (1.8-7.7) 03/02/22 13:40 Lymph # (Auto) 2.8 10^3/uL (0.8-4.8) 03/02/22 13:40 [place] # (Auto) 0.7 10^3/uL (0.2-0.9) 03/02/22 13:40 Eos # (Auto) 0.1 10^3/uL (0.0-0.8) 03/02/22 13:40 Baso # (Auto) 0.0 10^3/uL (0.0-0.1) 03/02/22 13:40 Nucleated RBC % (auto) 0 % 03/02/22 13:40 Nucleated RBCs # 0.0 /100WBC 03/02/22 13:40 Sodium 138 mmol/L (136-145) 03/02/22 13:40 Potassium 3.6 mmol/L (3.5-5.1) 03/02/22 13:40 Chloride 99 mmol/L (98-107) 03/02/22 13:40 Carbon Dioxide 26 mmol/L (22-29) 03/02/22 13:40 Anion Gap 16.6 (5-19) 03/02/22 13:40 BUN 13 mg/dL (6-20) 03/02/22 13:40 Creatinine 0.8 mg/dL (0.5-0.9) 03/02/22 13:40 GFR Calculation 74.5 mL/min (90-130) L 03/02/22 13:40 Glucose 91 mg/dL (65-115) 03/02/22 13:40 Calculated Osmolality 286 mOsm/kg (285-295) 03/02/22 13:40 Calcium 9.6 mg/dL (8.5-10.5) 03/02/22 13:40 Total Bilirubin 0.3 mg/dL (0.15-1.2) 03/02/22 13:40 AST 13 U/L (0-32) 03/02/22 13:40 ALT 14 U/L (0-33) 03/02/22 13:40 Alkaline Phosphatase 107 U/L (35-105) H 03/02/22 13:40 Total Protein 7.6 g/dL (6.6-8.7) 03/02/22 13:40 Albumin 4.1 g/dL (3.5-5.2) 03/02/22 13:40 Globulin 3.5 g/dL (1.3-4.6) 03/02/22 13:40 Lipase 30 U/L (13-60) 03/02/22 13:40 Urine Color Yellow (Yellow) 03/02/22 13:40 Urine Appearance Hazy (CLEAR) A 03/02/22 13:40 Urine pH 8 (5-7) H 03/02/22 13:40 Ur Specific [place] 1.025 (1.005-1.030) 03/02/22 13:40 Urine Protein 1+ (Negative) H 03/02/22 13:40 Urine Glucose (UA) Norm (Normal) 03/02/22 13:40 Urine Ketones Negative (Negative) 03/02/22 13:40 Urine Blood 2+ (Negative) H 03/02/22 13:40 Urine Nitrate Positive (Negative) H 03/02/22 13:40 Urine Bilirubin Neg (Negative) 03/02/22 13:40 Prot Sulfosalicylic Acd Positive (Negative) 03/02/22 13:40 Urine Urobilinogen Norm mg/dL (Negative) 03/02/22 13:40 Ur Leukocyte Esterase 2+ (Negative) H 03/02/22 13:40 Urine RBC 0-4 /hpf (0-2) H 03/02/22 13:40 Urine WBC 15-25 /hpf (0-5) H 03/02/22 13:40 Ur Squamous Epith Cells None /hpf (0-5) 03/02/22 13:40 Amorphous Sediment Not Reportable 03/02/22 13:40 Urine Bacteria 2+ /hpf (NONE) H 03/02/22 13:40 Discharge Plan Discharge Patient Disposition: Home Clinical Impression: UTI (urinary tract infection), Cholelithiasis Condition: Stable Prescriptions: New hydrocodone-acetaminophen 5-325 mg tablet 1 tab PO Q6H PRN (Reason: pain) Qty: 14 0RF cephalexin 500 mg capsule 500 mg PO TID 7 Days Qty: 21 0RF ondansetron 4 mg tablet,disintegrating 4 mg PO Q6H PRN (Reason: nausea and vomiting) Qty: 14 0RF No Action Adult 50 Plus Probiotic 4 billion cell capsule 4,000 mmu cells PO DAILY Rx Instructions: administer with a meal multivitamin Tablet 1 tab PO DAILY clobetasol 0.05 % cream 1 applic topical BID PRN Rx Instructions: Apply to area twice daily for 14 days lansoprazole 30 mg capsule,delayed release(DR/EC) 30 mg PO DAILY potassium citrate 99 mg capsule PO DAILY magnesium chloride 70 mg tablet,delayed release (DR/EC) 70 mg PO DAILY cefuroxime axetil 500 mg tablet 500 mg PO BID Qty: 28 2RF clotrimazole-betamethasone 1-0.05 % cream 1 applic topical BID amitriptyline 25 mg tablet 10 mg PO .hs Qty: 30 3RF Rx Instructions: nightly before bed increased to 25 mg daily on 02/04/2022 Discharge Orders: Discharge ED (Routine); Ordered 03/02/22 Ordered By: Mar Ovalle Referrals: Anastacio Gao DO [Physician] - 1-3 days Misbah Cooper DO [Primary Care Provider] - Discharge Diet: Advance as tolerated Discharge Activity: Resume usual activity Patient Instructions: Gallstones (ED), Urinary Tract Infection in Women (ED), Opioid Safety Coding Level of Care Code ED Pin Setter for Rafia Fwd Exam Comprehensive
[2022-03-02] MEDS: sodium chloride 0.9% 1,000 ML 999 ML IV (13:55)
[2022-03-02 13:58] VITALS: RESP 17; O2SAT 98
[2022-03-02] MEDS: morphine 4 mg/mL SDV 1 mL IVP (13:58)
[2022-03-02] MEDS: ondansetron 2 mg/ML SDV 2 mL 4 MG IVP (13:59)
[2022-03-02 14:21] LABS: Basophils % 0.3 %; Eosinophils # 0.1 10^3/uL (0.0-0.8); Eosinophils % 0.9 %; Hematocrit 43.2 % (37.0-47.0); Hemoglobin 13.9 g/dL (11.5-15.3); Lymphocytes # 2.8 10^3/uL (0.8-4.8); Lymphocytes % 30.6 %; Mean Corpuscular HGB Conc 32.2 g/dL (30.0-36.0); Mean Corpuscular Hemoglobin 28.7 pg (28.0-34.0); Mean Corpuscular Volume 89.1 fl (81-99); Mean Platelet Volume 9.7 fL (7.4-10.4); Monocytes # 0.7 10^3/uL (0.2-0.9); Monocytes % 7.1 %; Neutrophils # 5.66 10^3/uL (1.8-7.7); Neutrophils % 60.9 %; Nucleated Red Blood Cells % 0 %; Platelet Count 377 10^3/cmm (130-400); Red Blood Count 4.85 10^6/uL (4.1-5.3); Red Cell Distribution Width 12.9 % (12.1-15.1); White Blood Count 9.3 10^3/uL (4.0-10.0)
[2022-03-02 14:29] LABS: Alanine Aminotransferase 14 U/L (0-33); Albumin Level 4.1 g/dL (3.5-5.2); Alkaline Phosphatase 107 U/L (35-105); Anion Gap 16.6 (5-19); Aspartate Amino Transferase 13 U/L (0-32); Blood Urea Nitrogen 13 mg/dL (6-20); Calcium 9.6 mg/dL (8.5-10.5); Carbon Dioxide 26 mmol/L (22-29); Chloride 99 mmol/L (98-107); Globulin 3.5 g/dL (1.3-4.6); Glomerular Filtration Rate 74.5 mL/min (90-130); Glucose 91 mg/dL (65-115); Lipase 30 U/L (13-60); Osmolality Calculated 286 mOsm/kg (285-295); Potassium 3.6 mmol/L (3.5-5.1); Sodium 138 mmol/L (136-145); Total Bilirubin 0.3 mg/dL (0.15-1.2); Total Protein 7.6 g/dL (6.6-8.7)
[2022-03-02 14:30] LABS: Add Urine Microscopic? YES; Bilirubin Urine Neg (Negative); Blood Urine 2+ (Negative); Glucose Urine UA Norm (Normal); Ketones Urine Negative (Negative); Leukocyte Esterase Urine 2+ (Negative); Nitrate Urine Positive (Negative); Protein Urine 1+ (Negative); Specific Gravity, Urine 1.025 (1.005-1.030); Sulfosalicylic Acid Urine Positive (Negative); Urine Appearance Hazy (CLEAR); Urine Color Yellow (Yellow); Urobilinogen Urine Norm (Negative); pH Urine 8 (5-7)
[2022-03-02 14:31] LABS: Add Urine Culture? Yes; Bacteria Urine 2+ /hpf; RBC Urine 0-4 /hpf (0-2); WBC Urine 15-25 /hpf (0-5)
--- NOTE | 2022-03-02 14:31 | USR_ITS ---
PROCEDURE INFORMATION: Exam: US Abdomen, Limited; Right Upper Quadrant Exam date and time: 03/02/2022 2:38 PM Age: 56 years old Clinical indication: Abdominal pain; Acute; Additional info: Abd pain TECHNIQUE: Imaging protocol: Real time ultrasound of the abdomen with image documentation. Limited exam focused on the right upper quadrant. COMPARISON: US abdomen complete* [id number] 10/25/2019 8:09 AM FINDINGS: Liver: No focal mass in the visualized liver. Gallbladder: Cholelithiasis and echogenic bile in the gallbladder. No gallbladder wall edema or pericholecystic fluid. Technologist reported negative sonographic Mary sign. Biliary ducts: Normal caliber of the incompletely visualized common bile duct measuring 4 mm in diameter. Pancreas: Obscuration of the pancreas by bowel gas. Right kidney: Normal right renal morphology. No hydronephrosis. bscuration of the abdominal aorta by bowel gas. Aorta: Partial obscuration of the abdominal aorta by bowel gas. Inferior vena cava: IVC. US/US gall bladder [id number] IMPRESSION: Cholelithiasis and echogenic bile in the gallbladder.
[2022-03-02] MEDS: cefTRIAXone 1,000 MG in sodium chloride 0.9% (plus) 50 ML 100 MG IV (14:48)
[2022-03-02 15:17] VITALS: BP 168/81; PULSE 78; O2SAT 96
--- NOTE | 2022-03-04 12:00 | DCPLANNER ---
Addendum entered by Lindsay Baer 04/17/22 15:19: Patient did not attend appointment. Addendum entered by Lindsay Baer 03/07/22 16:41: Patient has a follow up appointment scheduled for Friday, March 25, 2022 at 1:[address] Gao at general surgery. Clinic will call patient with appointment information. Original Note: manager golf had message to schedule a follow up appointment for patient with general surgery. manager golf sent patients information to the front office staff at general surgery. Patients information will be printed and reviewed. Clinic will call patient with appointment information.
== END 2022-03-02 15:18 | disposition home or self-care (01) ==
PROVIDERS: Emergency Provider Emergency Medicine; PCP Electrodiagnostic Medicine
DX: N39.0 Urinary tract infection, site not specified (principal); K80.20 Calculus of gallbladder without cholecystitis without obstruction
CPT/HCPCS: 74176; 76705; 80053; 81001; 83690; 85025; 87086; 96374; 96375; 99285; J0696; J2270; J2405; J7030

== ENCOUNTER 2022-04-18 07:38 | Outpatient (CLI) | payer OTHER, SELFPAY ==
--- NOTE | 2022-04-18 07:50 | NM_ITS ---
WS: [id number] NUCLEAR MEDICINE HIDA SCAN WITH GALLBLADDER EJECTION FRACTION HISTORY: RUQ PAIN COMPARISON: Gallbladder ultrasound 03/02/2022 TECHNIQUE: The patient was intravenously injected with 7.8 mCi of TC99m Mebrofenin. Immediate imaging over the right upper quadrant was followed by 5 minute image and additional images for a total of 60 minutes. Normal uptake of radiotracer throughout the liver. Activity identified in the gallbladder at 15 minutes and well distended by 60 minutes. Activity in the proximal small bowel was seen by 20 minutes. Good washout of the radiotracer from the liver by 60 minutes. The patient then drank 8 ounces of Ensure Plus. Ejection fraction at 80 minutes was 83%. Normal GB ej ection fraction is 35-75%. Post fatty meal symptoms: None. NM/NM hepatobiliary w phar* [id number] IMPRESSION: 1. Normal HIDA scan. 2. Normal gallbladder ejection fraction.
== END 2022-04-18 07:39 | disposition home or self-care (01) ==
PROVIDERS: PCP Electrodiagnostic Medicine; Visit Provider Electrodiagnostic Medicine
DX: R10.11 Right upper quadrant pain (principal)
CPT/HCPCS: 78227; A9537

== ENCOUNTER → 2022-07-09 10:04 | Outpatient (BNVA) | payer OTHER, SELFPAY | PROVIDERS: PCP Electrodiagnostic Medicine; Visit Provider Urology | DX: N30.20 Other chronic cystitis without hematuria (principal) | CPT/HCPCS: 81003 ==

== ENCOUNTER 2022-07-28 01:35 | Emergency (ER) | payer OTHER, SELFPAY ==
[2022-07-28 01:44] VITALS: BP 177/83; PULSE 87; RESP 18; TEMP 36.6; O2SAT 98; BMI 34.7
--- NOTE | 2022-07-28 03:15 | CTR_ITS ---
PROCEDURE INFORMATION: Exam: CT Abdomen And Pelvis With Contrast Exam date and time: 07/28/2022 3:48 AM Age: 56 years old Clinical indication: Abdominal pain; Generalized; Prior surgery; Surgery date: 6+ months; Surgery type: Tubal, ; Patient HX: Nausea, mid abd pain TECHNIQUE: Imaging protocol: Computed tomography of the abdomen and pelvis with contrast. Radiation optimization: All CT scans at this facility use at least one of these dose optimization techniques: automated exposure control; mA and/or kV adjustment per patient size (includes targeted exams where dose is matched to clinical indication); or iterative reconstruction. Contrast material: OMNI 350; Contrast volume: 100 ml; Contrast route: INTRAVENOUS (IV); REPORTING DATA: Count of CT and Cardiac NM exams in prior 12 months: This patient has received [address] and 0 known cardiac nuclear medicine studies in the 12 months prior to the current study. COMPARISON: CT kidney stone [id number] 03/02/2022 1:47 PM RADIATION DOSE METRICS: Total DLP (mGy-cm): 866.38 FINDINGS: Liver: Normal. No mass. Gallbladder and bile ducts: There are multiple small gas-filled gallstones present. There are no inflammatory changes seen to suggest cholecystitis. Pancreas: Normal. No ductal dilation. Spleen: Normal. No splenomegaly. Adrenal glands: Normal. No mass. Kidneys and ureters: Normal. No hydronephrosis. Stomach and bowel: Few diverticula are seen the sigmoid colon. There are no inflammatory changes seen to suggest diverticulitis. There are nondilated small bowel loops present containing fluid and a few air-fluid levels, findings that may represent mild ileus. Appendix: The appendix is visualized and is normal in configuration. Intraperitoneal space: Unremarkable. No free air. No significant fluid collection. Vasculature: Unremarkable. No abdominal aortic aneurysm. Lymph nodes: Unremarkable. No enlarged lymph nodes. Urinary bladder: Unremarkable as visualized. Reproductive: Unremarkable as visualized. Bones/joints: Unremarkable. No acute fracture. Soft tissues: Unremarkable. CT/CT abdomen pelvis w con* [id number] IMPRESSION: 1. Nondilated small bowel loops containing fluid and air fluid levels could represent mild ileus. 2. Mild diverticulosis of the sigmoid colon 3. Multiple small gas-filled gallstones without evidence of cholecystitis 4. Normal appendix 5. No evidence for ureteral obstruction
[2022-07-28] MEDS: lidocaine 2% viscous 15 ML, aluminum-mag hydrox-simethicon 30 ML, sucralfate oral liq 1 GM PO (03:33)
[2022-07-28] MEDS: iohexol 350 mg/mL 500 mL Btl (per mL) IV (03:54)
[2022-07-28 04:00] LABS: Basophils % 0.2 %; Eosinophils % 0.3 %; Hematocrit 40.7 % (37.0-47.0); Lymphocytes # 2.6 10^3/uL (0.8-4.8); Lymphocytes % 16.8 %; Mean Corpuscular HGB Conc 31.9 g/dL (30.0-36.0); Mean Corpuscular Volume 87.5 fl (81-99); Mean Platelet Volume 9.6 fL (7.4-10.4); Monocytes % 6.4 %; Neutrophils # 11.75 10^3/uL (1.8-7.7); Nucleated Red Blood Cells % 0 %; Platelet Count 349 10^3/cmm (130-400); Red Blood Count 4.65 10^6/uL (4.1-5.3); Red Cell Distribution Width 13.4 % (12.1-15.1); White Blood Count 15.5 10^3/uL (4.0-10.0)
[2022-07-28] MEDS: sodium chloride 0.9% 1,000 ML 999 ML IV (04:03)
[2022-07-28] MEDS: ondansetron 2 mg/ML SDV 2 mL 4 MG IVP (04:03)
[2022-07-28] MEDS: morphine 4 mg/mL SDV 1 mL IVP (04:05)
[2022-07-28 04:14] LABS: Alanine Aminotransferase 13 U/L (0-33); Albumin Level 3.9 g/dL (3.5-5.2); Alkaline Phosphatase 115 U/L (35-105); Anion Gap 11.4 (5-19); Aspartate Amino Transferase 13 U/L (0-32); Blood Urea Nitrogen 17 mg/dL (6-20); C Reactive Protein 7.9 mg/L (0.0-4.9); Calcium 9.3 mg/dL (8.5-10.5); Carbon Dioxide 25 mmol/L (22-29); Chloride 96 mmol/L (98-107); Globulin 3.3 g/dL (1.3-4.6); Glomerular Filtration Rate 86.9 mL/min (90-130); Glucose 124 mg/dL (65-115); Lipase 25 U/L (13-60); Osmolality Calculated 271 mOsm/kg (285-295); Potassium 3.4 mmol/L (3.5-5.1); Sodium 129 mmol/L (136-145); Total Bilirubin 0.3 mg/dL (0.15-1.2); Total Protein 7.2 g/dL (6.6-8.7)
--- NOTE | 2022-07-28 04:25 | ED_ITS ---
HPI - Abdominal Pain General: Chief Complaint: Abdominal Pain Stated Complaint: abdomen pain, back pain Time Seen by Provider: 07/28/22 02:53 Source: patient History of Present Illness: 56-year-old female with no history of belly surgery other than a tubal ligation in the 90s. She presents with severe epigastric pain that radiated to her back that awoke her from sleep. She is still having sleep. Is still having pain. She is nauseated. No vomiting. No d iarrhea. No fever. MD elicited complaint: abdominal pain Pertinent past history: none Onset (ago): hour(s) Pain Consistency: constant Location: Epigastric Severity: moderate Radiation: epigastric Exacerbating factors: nothing Relieving factors: nothing Associated Symptoms: Reports nausea; Denies bloating, constipation, fever(s), hematochezia, hematemesis, loose stools, melena and vomiting Review of Systems Const: Denies: fever(s) Card: Denies: chest pain Resp: Denies: dyspnea, productive cough or non-productive cough GI: Reports: nausea; Denies: vomiting, hematemesis, constipation, bloating, hematochezia or melena PFSH ED PFSH: Medical History Anxiety Controlled on p.o. pain medication as needed managed by PMD Chronic back pain Managed by pain medication by PMD and pain management Chronic cystitis Diagnosed in [address] Christiansen No pertinent past medical history Denies diabetes, asthma, hypertension, seizures, DVT/PE Her primary care provider is Dr. Cooper. Recurrent UTI Vulvodynia Surgical History S/P section 06/24/1989--performed by Dr. Bach at [facility] S/P tubal ligation 06/24/1989--Performed by Dr. Bach at [facility] at time of section. Family History Mother , at age 92 Diabetes Heart disease Stroke Alzheimer disease Sister Lung cancer Father , at age 89 COPD (chronic obstructive pulmonary disease) Denies family history of Colon cancer Ovarian cancer Hyperlipidemia Breast cancer Uterine cancer Thyroid condition Social History Smoking and tobacco status: former smoker Alcohol intake: never Lives independently: Yes Household members: spouse Marital status: Current occupational status: retired Physical Exam Const: COMMON NORMALS: no acute distress GENERAL APPEARANCE: cooperative; not ill appearing and not frail appearing HENMT: COMMON NORMALS: normocephalic, atraumatic and Normal external nose present HEAD & SCALP: normocephalic and atraumatic FACE & SINUS: normal facial exam and face symmetric NOSE: Normal external nose present Eye: COMMON NORMALS: Equal, round and reactive pupils present and EOMs intact bilaterally PUPIL: Yes Equal, round and reactive pupils present Neck/C-Spine: GENERAL: Yes trachea midline Chest: CHEST: Yes Symmetrical chest wall rise Resp: COMMON NORMALS: normal respiratory effort, No retractions, No use of accessory muscles and clear to auscultation bilaterally AUSCULTATION: clear to auscultation bilaterally Cardio: COMMON NORMALS: regular rate and regular rhythm RATE: regular rate RHYTHM: regular rhythm GI: COMMON NORMALS: Normal to inspection, nondistended, normoactive bowel sounds present PALPATION: Yes Tenderness to palpation present (GI) (epigastric) Extremity: COMMON NORMALS: no pedal edema Neuro: OLEKSANDR COMA SCALE: document GCS findings [place]ola coma scale eye opening: Spontaneous [place] coma scale verbal response: Orientated [place] coma scale motor response: Obey commands Oleksandr coma scale total score: 15 SENSORY EXAM: Yes extremities (intact) Psych: COMMON NORMALS: speech normal SPEECH: Yes normal speech Skin: COMMON NORMALS: no rashes or lesions noted GENERAL SKIN EXAM: no rashes or lesions noted Course Vital Signs: Vital signs: Vital Signs Temperature 97.8 F 07/28/22 01:44 Pulse Rate 90 07/28/22 04:30 Respiratory Rate 18 07/28/22 01:44 Blood Pressure 165/85 07/28/22 04:30 Pulse Oximetry 94 07/28/22 04:30 Oxygen Delivery Me thod 07/28/22 04:30 MDM - Abdominal Pain Medical Decision Making 56 year old lady with epigastric tenderness spirit or white blood cell count is 15.5. Sodium is 129. CRP is only 7.9. Troponin is 7. Your analysis is negative. Lipase is 25. CT shows non dilated small bowel loops containing fluid and air likely representing a mild ileus and/or gastroenteritis. No Cholecystitis. She'll be discharged. Symptomatic treatment. Lab Data 07/28/22 03:45 07/28/22 03:45 Labs/Radiology: Radiology Impressions Abdomen/Pelvis CT 07/28/22 03:15 IMPRESSION: 1. Nondilated small bowel loops containing fluid and air fluid levels could represent mild ileus. 2. Mild diverticulosis of the sigmoid colon 3. Multiple small gas-filled gallstones without evidence of cholecystitis 4. Normal appendix 5. No evidence for ureteral obstruction Laboratory Results WBC 15.5 10^3/uL (4.0-10.0) H 07/28/22 03:45 RBC 4.65 10^6/uL (4.1-5.3) 07/28/22 03:45 Hgb 13.0 g/dL (11.5-15.3) 07/28/22 03:45 Hct 40.7 % (37.0-47.0) 07/28/22 03:45 MCV 87.5 fl (81-99) 07/28/22 03:45 MCH 28.0 pg (28.0-34.0) 07/28/22 03:45 MCHC 31.9 g/dL (30.0-36.0) 07/28/22 03:45 RDW 13.4 % (12.1-15.1) 07/28/22 03:45 Plt Count 349 10^3/cmm (130-400) 07/28/22 03:45 MPV 9.6 fL (7.4-10.4) 07/28/22 03:45 Neut % (Auto) 76.0 % 07/28/22 03:45 Lymph % (Auto) 16.8 % 07/28/22 03:45 [place] % (Auto) 6.4 % 07/28/22 03:45 Eos % (Auto) 0.3 % 07/28/22 03:45 Baso % (Auto) 0.2 % 07/28/22 03:45 Neut # (Auto) 11.75 10^3/uL (1.8-7.7) H 07/28/22 03:45 Lymph # (Auto) 2.6 10^3/uL (0.8-4.8) 07/28/22 03:45 [place] # (Auto) 1.0 10^3/uL (0.2-0.9) H 07/28/22 03:45 Eos # (Auto) 0.0 10^3/uL (0.0-0.8) 07/28/22 03:45 Baso # (Auto) 0.0 10^3/uL (0.0-0.1) 07/28/22 03:45 Nucleated RBC % (auto) 0 % 07/28/22 03:45 Nucleated RBCs # 0.0 /100WBC 07/28/22 03:45 Sodium 129 mmol/L (136-145) L 07/28/22 03:45 Potassium 3.4 mmol/L (3.5-5.1) L 07/28/22 03:45 Chloride 96 mmol/L (98-107) L 07/28/22 03:45 Carbon Dioxide 25 mmol/L (22-29) 07/28/22 03:45 Anion Gap 11.4 (5-19) 07/28/22 03:45 BUN 17 mg/dL (6-20) 07/28/22 03:45 Creatinine 0.7 mg/dL (0.5-0.9) 07/28/22 03:45 GFR Calculation 86.9 mL/min (90-130) L 07/28/22 03:45 Glucose 124 mg/dL (65-115) H 07/28/22 03:45 Calculated Osmolality 271 mOsm/kg (285-295) L 07/28/22 03:45 Calcium 9.3 mg/dL (8.5-10.5) 07/28/22 03:45 Total Bilirubin 0.3 mg/dL (0.15-1.2) 07/28/22 03:45 AST 13 U/L (0-32) 07/28/22 03:45 ALT 13 U/L (0-33) 07/28/22 03:45 Alkaline Phosphatase 115 U/L (35-105) H 07/28/22 03:45 Troponin T Gen 5 ng/L 7 ng/L (0-10) 07/28/22 03:45 C-Reactive Protein 7.9 mg/L (0.0-4.9) H 07/28/22 03:45 Total Protein 7.2 g/dL (6.6-8.7) 07/28/22 03:45 Albumin 3.9 g/dL (3.5-5.2) 07/28/22 03:45 Globulin 3.3 g/dL (1.3-4.6) 07/28/22 03:45 Lipase 25 U/L (13-60) 07/28/22 03:45 Urine Color Yellow (Yellow) 07/28/22 04:20 Urine Appearance Clear (CLEAR) 07/28/22 04:20 Urine pH 5 (5-7) 07/28/22 04:20 Ur Specific [place] 1.010 (1.005-1.030) 07/28/22 04:20 Urine Protein Neg (Negative) 07/28/22 04:20 Urine Glucose (UA) Norm (Normal) 07/28/22 04:20 Urine Ketones Negative (Negative) 07/28/22 04:20 Urine Blood 2+ (Negative) H 07/28/22 04:20 Urine Nitrate Negative (Negative) 07/28/22 04:20 Urine Bilirubin Neg (Negative) 07/28/22 04:20 Urine Urobilinogen Norm mg/dL (Negative) 07/28/22 04:20 Ur Leukocyte Esterase Negative (Negative) 07/28/22 04:20 Urine RBC 0-4 /hpf (0-2) H 07/28/22 04:20 Urine WBC 0-4 /hpf (0-5) H 07/28/22 04:20 Ur Squamous Epith Cells 0-4 /hpf (0-5) H 07/28/22 04:20 Amorphous Sediment Not Reportable 07/28/22 04:20 Urine Bacteria Trace /hpf (NONE) 07/28/22 04:20 Discharge Plan Discharge Patient Disposition: Home Clinical Impression: Gastroenteritis Condition: Stable Prescriptions: New ondansetron 4 mg film 4 mg PO DAILY PRN (Reason: nausea and vomiting) Qty: 10 0RF No Action Adult 50 Plus Probiotic 4 billion cell capsule 4,000 mmu cells PO DAILY Rx Instructions: administer with a meal multivitamin Tablet 1 tab PO DAILY clobetasol 0.05 % cream 1 applic topical BID PRN Rx Instructions: Apply to area twice daily for 14 days lansoprazole 30 mg capsule,delayed release(DR/EC) 30 mg PO DAILY potassium citrate 99 mg capsule PO DAILY magnesium chloride 70 mg tablet,delayed release (DR/EC) 70 mg PO DAILY clotrimazole-betamethasone 1-0.05 % cream 1 applic topical BID cefuroxime axetil 500 mg tablet 500 mg PO BID Qty: 60 6RF amitriptyline 10 mg tablet 10 mg PO DAILY Qty: 90 3RF Rx Instructions: Take 1 tab po daily Discharge Orders: Discharge ED (Routine); Ordered 07/28/22 Ordered By: Nabil Valentino Referrals: Misbah Cooper DO [Primary Care Provider] - 1-3 days Patient Instructions: Gastroenteritis (ED) Activity Restrictions/Additional Instructions: Medication as directed. Follow a liquid diet today. Advance as tolerated. Return for worsening pain despite treatment, other concerning symptoms. Coding Level of Care Code ED Architectural Technician for Rafia De Luna
--- NOTE | 2022-07-28 04:28 | ECG_ITS ---
[facility] Test Date: 2022-07-28 Pat Name: Dori Rodríguez Department: Room: Gender: Female Envelope Adjuster: : 1965 Requested By: Nabil Howell Order Number: [id number] Moni MD: Joseph Dunn Measurements Intervals [place] Rate: 89 P: 143 IA: 165 QRS: 83 QRSD: 93 T: 26 QT: 354 QTc: 432 Interpretive Statements ECTOPIC ATRIAL RHYTHM LOW QRS VOLTAGE IN EXTREMITY LEADS [QRS DEFLECTION < 0.5 mV IN LIMB LEADS] POSSIBLE RIGHT VENTRICULAR CONDUCTION DELAY [RSR (QR) IN V1/V2] ABNORMAL RHYTHM ECG No previous ECG available for comparison Electronically Signed On 07-28-2022 18:58:54 CDT by Joseph Dunn [email or web address]
[2022-07-28 04:30] VITALS: BP 165/85; PULSE 90; O2SAT 94
[2022-07-28 05:05] LABS: Troponin T (5th) Once 7 ng/L (0-10)
[2022-07-28 05:25] LABS: Add Urine Microscopic? YES; Bilirubin Urine Neg (Negative); Blood Urine 2+ (Negative); Glucose Urine UA Norm (Normal); Ketones Urine Negative (Negative); Leukocyte Esterase Urine Negative (Negative); Nitrate Urine Negative (Negative); Protein Urine Neg (Negative); Urine Appearance Clear (CLEAR); Urine Color Yellow (Yellow); Urobilinogen Urine Norm (Negative); pH Urine 5 (5-7)
[2022-07-28 05:27] LABS: Bacteria Urine TRACE /hpf; RBC Urine 0-4 /hpf (0-2); Squamous Epithelial Cell Urine 0-4 /hpf (0-5); WBC Urine 0-4 /hpf (0-5)
[2022-07-28] MEDS: ketorolac 10 mg Tablet PO (05:42)
--- NOTE | 2022-07-28 05:45 | PC.NURSE ---
Patient sent home with 2x Oxycodone tabs per MD orders.
== END 2022-07-28 05:43 | disposition home or self-care (01) ==
PROVIDERS: Emergency Provider Emergency Medicine; PCP Electrodiagnostic Medicine
DX: K52.9 Noninfective gastroenteritis and colitis, unspecified (principal); Z87.891 Personal history of nicotine dependence
CPT/HCPCS: 74177; 80053; 81001; 83690; 84484; 85025; 86140; 93005; 96361; 96374; 96375; 99285; J2270; J2405; J7030; Q9967

== ENCOUNTER 2022-11-30 07:12 | Emergency (ER) | payer OTHER, SELFPAY ==
[2022-11-30 07:16] VITALS: BP 191/80; PULSE 65; RESP 18; TEMP 36.6; O2SAT 100; BMI 34.7
--- NOTE | 2022-11-30 07:25 | W.ED.ABDPA2 ---
HPI - Abdominal Pain General: Chief Complaint: Nausea/Vomiting/Diarrhea Stated Complaint: sick to stomach, back pain Time Seen by Provider: 11/30/22 07:17 Source: patient Mode of arrival: ambulatory Limitations: no limitations History of Present Illness: Patient is a very nice 57-year-old female who presents to ED today with a complaint of back pain that awoke her from sleep around 5 AM this morning. She states since she has noticed pain radiating around into her abdomen and is now complaining of diffuse abdominal pain. She states her abdomen just feels achy . She feels nauseous and states she has dry heaves all morning. She states it feels like she needs to have a diarrhea stool but has not. Has not been running fevers. Patient states she has a history of acute cystitis and vulvodynia. She does complain of dysuria and urinary frequency but states it is hard to tell whether these are new or chronic symptoms. She was seeing Dr. Christiansen for the acute cystitis and had antibiotic prescriptions to start when she became symptomatic. She is not currently taking any antibiotics. According to Dr. Christiansen's notes she has had cultures in the past that grew Enterococcus faecalis but looking at previous documentation-the last 5 urine cultures grew superficial valdez. She has no history of kidney/ureter stones. She does report a known history of cholelithiasis. She reportedly has had a normal HIDA scan. She arrives with stable vital signs apart from hypertension that she attributes to pain. MD elicited complaint: abdominal pain and other (back pain) Pertinent past history: other (chronic cystitis, vulvodynia) Onset (ago): hour(s) Pain Consistency: constant Location: Diffuse Severity: severe Quality: aching and dull Radiation: none Migration to: no migration Exacerbating factors: nothing Relieving factors: nothing Associated Symptoms: Reports dysuria and nausea; Denies change in bowel habits, chills, constipation, diarrhea, fever(s), hematochezia, melena and vomiting (dry heaving) Related Data: Patient : No Review of Systems Const: Denies: fever(s), chills, body aches, fatigue or malaise Card: Denies: chest pain Resp: Denies: dyspnea GI: Reports: abdominal pain and nausea; Denies: vomiting (dry heaving), diarrhea, constipation, change in bowel habits, hematochezia or melena : Reports: dysuria and urinary frequency; Denies: difficulty voiding, urinary urgency, urinary hesitancy, vaginal odor, vaginal bleeding or pelvic pain Musc: Reports: back pain; Denies: neck pain, extremity pain, extremity swelling, joint pain or joint swelling Skin/Breast: Denies: rash Neuro: Denies: headache(s), numbness in extremities, weakness in extremities or sensory changes PFSH ED PFSH: Medical History Anxiety Controlled on p.o. pain medication as needed managed by PMD Chronic back pain Managed by pain medication by PMD and pain management Chronic cystitis Diagnosed in [address] Christiansen No pertinent past medical history Denies diabetes, asthma, hypertension, seizures, DVT/PE Her primary care provider is Dr. Cooper. Recurrent UTI Vulvodynia Surgical History S/P section 06/24/1989--performed by Dr. Bach at [facility] S/P tubal ligation 06/24/1989--Performed by Dr. Bach at [facility] at time of section. Family History Mother , at age 92 Diabetes Heart disease Stroke Alzheimer disease Sister Lung cancer Father , at age 89 COPD (chronic obstructive pulmonary disease) Denies family history of Colon cancer Ovarian cancer Hyperlipidemia Breast cancer Uterine cancer Thyroid condition Social History Smoking and tobacco status: former smoker Alcohol intake: never Substance/Drug Use: never Lives independently: Yes Household members: spouse Marital status: Current occupational status: retired Physical Exam Const: COMMON NORMALS: no acute distress, patient oriented x3, no limitations, healthy appearing, alert and well nourished GENERAL APPEARANCE: cooperative ORIENTATION/CONSCIOUSNESS: Yes awake, Yes oriented to person, Yes oriented to place and Yes oriented to time HENMT: COMMON NORMALS: normocephalic and atraumatic HEAD & SCALP: normal to inspection, normocephalic and atraumatic Eye: COMMON NORMALS: no scleral icterus Chest: COMMONS NORMALS: normal inspection of the chest and normal palpation of entire chest wall Resp: COMMON NORMALS: normal respiratory effort and clear to auscultation bilaterally AUSCULTATION: clear to auscultation bilaterally Cardio: COMMON NORMALS: regular rate and regular rhythm RATE: regular rate RHYTHM: regular rhythm GI: COMMON NORMALS: Normal to inspection, nondistended, normoactive bowel sounds present, Soft to palpation, No hepatosplenomegaly present and no masses INSPECTION: Yes normal to inspection AUSCULTATION: Yes Hypoactive bowel sounds present PALPATION: Yes Soft to palpation, Yes Tenderness to palpation present (GI) (diffusely but appears to have more so tenderness to upper abdomen) Details: other (non-surgical examination), No Guarding due to palpation present (GI), No Rigid due to palpation and Yes No hepatosplenomegaly present : BLADDER/KIDNEY EXAM: Yes CVA tenderness (mild tenderness to R flank) on the right Back/Pelvis: GENERAL BACK: Yes CVA tenderness (mild tenderness to R flank) THORACIC SPINE/UPPER BACK: Yes normal to inspection, Yes thoracic ROM normal, No thoracic spinal tenderness, Yes paraspinal muscle tenderness and No paraspinal muscle spasm LUMBAR SPINE/LOWER BACK: Yes normal to inspection, Yes lumbar ROM normal, No lumbar spinal tenderness, No paraspinal muscle tenderness and No paraspinal muscle spasm PELVIS: Yes buttocks normal SACROILIAC JOINTS: Yes SI joints normal SACRUM: no tenderness COCCYX: no tenderness Extremity: COMMON NORMALS: normal to inspection, no clubbing, cyanosis or edema, no calf tenderness and no pedal edema GENERAL: Yes normal exam except as noted Neuro: OLEKSANDR COMA SCALE: document GCS findings Oleksandr coma scale eye opening: Spontaneous [place] coma scale verbal response: Orientated Oleksandr coma scale motor response: Obey commands Oleksandr coma scale total score: 15 COMMON NORMALS: patient oriented x3 SENSORIUM/ORIENTATION: Yes alert, Yes oriented to person, Yes oriented to place and Yes oriented to time Skin: COMMON NORMALS: no rashes or lesions noted GENERAL SKIN EXAM: no rashes or lesions noted Course Vital Signs: Vital signs: Vital Signs Temperature 97.8 F 11/30/22 07:16 Pulse Rate 65 11/30/22 07:16 Respiratory Rate 16 11/30/22 07:38 Blood Pressure 137/93 11/30/22 08:20 Pulse Oximetry 100 11/30/22 07:38 Oxygen Delivery Me thod Room Air 11/30/22 07:16 MDM - Abdominal Pain Medical Decision Making Patient is a very nice 57-year-old female who presented to the ED today with a complaint of back and diffuse abdominal pain along with nausea and dry heaving. She states symptoms started around 5 AM this morning. On exam she has some moderate diffuse abdominal tenderness but exam was nonsurgical. She arrives with stable vital signs apart from hypertension that she attributes to pain. This did normalize after pain medications. Patient's blood work overall is unremarkable. She has a history of chronic cystitis. She does state her symptoms associated with this seem to worsen yesterday stating it felt like a flare . UA appears pretty close to her baseline. Her last 5 urine cultures have grew superficial valdez. We will culture today's urine. She does have a prescription from Dr. Christiansen (cefuroxime) that I recommend she start. Patient has a known history of cholelithiasis. On CT imaging gallbladder did not look acutely inflamed. There was no ductal dilation. Her LFTs are normal. She has no localized tenderness to her right upper quadrant. At this time I do not suspect any emergent pathology for patient's discomforts. Again recommend she start the antibiotics and I would like her to follow-up with primary care early this week. Strict return ED precautions given. Lab Data 11/30/22 07:30 11/30/22 07:30 Labs/Radiology: Radiology Impressions Abdomen/Pelvis CT 11/30/22 08:13 IMPRESSION: 1. No acute findings. 2. Chronic and incidental findings, to include cholelithiasis and colonic diverticulosis. Laboratory Results WBC 10.6 10^3/uL (4.0-10.0) H 11/30/22 07:30 RBC 4.68 10^6/uL (4.1-5.3) 11/30/22 07:30 Hgb 13.4 g/dL (11.5-15.3) 11/30/22 07:30 Hct 41.7 % (37.0-47.0) 11/30/22 07:30 MCV 89.1 fl (81-99) 11/30/22 07:30 MCH 28.6 pg (28.0-34.0) 11/30/22 07:30 MCHC 32.1 g/dL (30.0-36.0) 11/30/22 07:30 RDW 12.8 % (12.1-15.1) 11/30/22 07:30 Plt Count 346 10^3/cmm (130-400) 11/30/22 07:30 MPV 10.8 fL (7.4-10.4) H 11/30/22 07:30 Neut % (Auto) 71.8 % 11/30/22 07:30 Lymph % (Auto) 20.5 % 11/30/22 07:30 [place] % (Auto) 5.7 % 11/30/22 07:30 Eos % (Auto) 1.5 % 11/30/22 07:30 Baso % (Auto) 0.3 % 11/30/22 07:30 Neut # (Auto) 7.63 10^3/uL (1.8-7.7) 11/30/22 07:30 Lymph # (Auto) 2.2 10^3/uL (0.8-4.8) 11/30/22 07:30 [place] # (Auto) 0.6 10^3/uL (0.2-0.9) 11/30/22 07:30 Eos # (Auto) 0.2 10^3/uL (0.0-0.8) 11/30/22 07:30 Baso # (Auto) 0.0 10^3/uL (0.0-0.1) 11/30/22 07:30 Nucleated RBC % (auto) 0 % 11/30/22 07:30 Nucleated RBCs # 0.0 /100WBC 11/30/22 07:30 Sodium 141 mmol/L (136-145) 11/30/22 07:30 Potassium 4.2 mmol/L (3.5-5.1) 11/30/22 07:30 Chloride 104 mmol/L (98-107) 11/30/22 07:30 Carbon Dioxide 29 mmol/L (22-29) 11/30/22 07:30 Anion Gap 12.2 (5-19) 11/30/22 07:30 BUN 12 mg/dL (6-20) 11/30/22 07:30 Creatinine 0.6 mg/dL (0.5-0.9) 11/30/22 07:30 GFR Calculation 103.4 mL/min (90-130) 11/30/22 07:30 Glucose 132 mg/dL (65-115) H 11/30/22 07:30 Calculated Osmolality 294 mOsm/kg (285-295) 11/30/22 07:30 Calcium 9.1 mg/dL (8.5-10.5) 11/30/22 07:30 Total Bilirubin 0.2 mg/dL (0.15-1.2) 11/30/22 07:30 AST 17 U/L (0-32) 11/30/22 07:30 ALT 15 U/L (0-33) 11/30/22 07:30 Alkaline Phosphatase 112 U/L (35-105) H 11/30/22 07:30 Total Protein 7.1 g/dL (6.6-8.7) 11/30/22 07:30 Albumin 4.0 g/dL (3.5-5.2) 11/30/22 07:30 Globulin 3.1 g/dL (1.3-4.6) 11/30/22 07:30 Lipase 28 U/L (13-60) 11/30/22 07:30 Urine Color Yellow (Yellow) 11/30/22 07:36 Urine Appearance Clear (CLEAR) 11/30/22 07:36 Urine pH 5 (5-7) 11/30/22 07:36 Ur Specific [place] 1.020 (1.005-1.030) 11/30/22 07:36 Urine Protein Neg (Negative) 11/30/22 07:36 Urine Glucose (UA) Norm (Normal) 11/30/22 07:36 Urine Ketones Negative (Negative) 11/30/22 07:36 Urine Blood 2+ (Negative) H 11/30/22 07:36 Urine Nitrate Negative (Negative) 11/30/22 07:36 Urine Bilirubin Neg (Negative) 11/30/22 07:36 Urine Urobilinogen Norm mg/dL (Negative) 11/30/22 07:36 Ur Leukocyte Esterase 1+ (Negative) H 11/30/22 07:36 Urine RBC 5-10 /hpf (0-2) H 11/30/22 07:36 Urine WBC 0-4 /hpf (0-5) H 11/30/22 07:36 Ur Squamous Epith Cells 5-10 /hpf (0-5) H 11/30/22 07:36 Amorphous Sediment Not Reportable 11/30/22 07:36 Urine Bacteria 1+ /hpf (NONE) H 11/30/22 07:36 Discharge Plan Discharge Patient Disposition: Home Clinical Impression: Chronic cystitis Abdominal pain Qualifiers: Abdominal location: generalized Qualified Code(s): R10.84 - Generalized abdominal pain Cholelithiasis Qualifiers: Cholelithiasis location: gallbladder Cholecystitis presence: without cholecystitis Biliary obstruction: without biliary obstruction Qualified Code(s): K80.20 - Calculus of gallbladder without cholecystitis without obstruction Condition: Stable Prescriptions: New hydrocodone-acetaminophen 5-325 mg tablet 1 tab PO Q6H PRN (Reason: pain) Qty: 14 0RF ondansetron 4 mg tablet,disintegrating 4 mg PO Q8H PRN (Reason: nausea and vomiting) Qty: 14 0RF Continued cefuroxime axetil 500 mg tablet 500 mg PO BID Qty: 60 6RF No Action Adult 50 Plus Probiotic 4 billion cell capsule 4,000 mmu cells PO DAILY Rx Instructions: administer with a meal multivitamin Tablet 1 tab PO DAILY clobetasol 0.05 % cream 1 applic topical BID PRN Rx Instructions: Apply to area twice daily for 14 days lansoprazole 30 mg capsule,delayed release(DR/EC) 30 mg PO DAILY potassium citrate 99 mg capsule PO DAILY magnesium chloride 70 mg tablet,delayed release (DR/EC) 70 mg PO DAILY clotrimazole-betamethasone 1-0.05 % cream 1 applic topical BID amitriptyline 10 mg tablet 10 mg PO DAILY Qty: 90 3RF Rx Instructions: Take 1 tab po daily ondansetron 4 mg film 4 mg PO DAILY PRN (Reason: nausea and vomiting) Qty: 10 0RF Discharge Orders: Discharge ED (Routine); Ordered 11/30/22 Ordered By: Jeannine Merlos Referrals: Misbah Cooper DO [Primary Care Provider] - Patient Instructions: Abdominal Pain (ED), Opioid Safety, Pain Management Activity Restrictions/Additional Instructions: As we discussed your blood work was overall unremarkable. CT scan of your abdomen/pelvis did not reveal any etiology for your abdominal/back pain. You do have known gallstones although gallbladder did not look acutely infected on your CT scan and your liver enzymes were all normal. Given your worsening dysuria I would recommend you start your antibiotic (cefuroxime 500mg BID x 7 days) given to you by Dr. Christiansen. We will culture your urine sample from today's visit. I would like you to follow-up with primary care early this week for reevaluation. As we discussed you need to return to the emergency department for worsening abdominal/back pain, pattern of episodes of vomiting or diarrhea, yellowing to your skin or eyes, generally feeling worse or unwell, fevers, severe flank pain or painful urination, or any other concerns you may have. I hope you begin to feel better soon. Coding Level of Care Code ED Road Driver for Rafia De Luna
[2022-11-30] MEDS: ondansetron 2 mg/ML SDV 2 mL 4 MG IVP (07:37)
[2022-11-30 07:38] VITALS: RESP 16; O2SAT 100
[2022-11-30] MEDS: morphine 4 mg/mL SDV 1 mL IVP (07:38)
[2022-11-30] MEDS: sodium chloride 0.9% 1,000 ML 999 ML IV (07:38)
[2022-11-30 07:42] LABS: Basophils % 0.3 %; Eosinophils # 0.2 10^3/uL (0.0-0.8); Eosinophils % 1.5 %; Hematocrit 41.7 % (37.0-47.0); Hemoglobin 13.4 g/dL (11.5-15.3); Lymphocytes # 2.2 10^3/uL (0.8-4.8); Lymphocytes % 20.5 %; Mean Corpuscular HGB Conc 32.1 g/dL (30.0-36.0); Mean Corpuscular Hemoglobin 28.6 pg (28.0-34.0); Mean Corpuscular Volume 89.1 fl (81-99); Mean Platelet Volume 10.8 fL (7.4-10.4); Monocytes # 0.6 10^3/uL (0.2-0.9); Monocytes % 5.7 %; Neutrophils # 7.63 10^3/uL (1.8-7.7); Neutrophils % 71.8 %; Nucleated Red Blood Cells % 0 %; Platelet Count 346 10^3/cmm (130-400); Red Blood Count 4.68 10^6/uL (4.1-5.3); Red Cell Distribution Width 12.8 % (12.1-15.1); White Blood Count 10.6 10^3/uL (4.0-10.0)
[2022-11-30 08:05] LABS: Urine Appearance Clear (CLEAR); Urine Color Yellow (Yellow); pH Urine 5 (5-7)
[2022-11-30 08:06] LABS: Add Urine Microscopic? YES; Bilirubin Urine Neg (Negative); Blood Urine 2+ (Negative); Glucose Urine UA Norm (Normal); Ketones Urine Negative (Negative); Leukocyte Esterase Urine 1+ (Negative); Nitrate Urine Negative (Negative); Protein Urine Neg (Negative); Urobilinogen Urine Norm (Negative)
[2022-11-30 08:07] LABS: WBC Urine 0-4 /hpf (0-5)
[2022-11-30 08:08] LABS: Add Urine Culture? Yes; Bacteria Urine 1+ /hpf
[2022-11-30 08:12] LABS: Alanine Aminotransferase 15 U/L (0-33); Alkaline Phosphatase 112 U/L (35-105); Anion Gap 12.2 (5-19); Aspartate Amino Transferase 17 U/L (0-32); Blood Urea Nitrogen 12 mg/dL (6-20); Calcium 9.1 mg/dL (8.5-10.5); Carbon Dioxide 29 mmol/L (22-29); Chloride 104 mmol/L (98-107); Globulin 3.1 g/dL (1.3-4.6); Glomerular Filtration Rate 103.4 mL/min (90-130); Glucose 132 mg/dL (65-115); Lipase 28 U/L (13-60); Osmolality Calculated 294 mOsm/kg (285-295); Potassium 4.2 mmol/L (3.5-5.1); Sodium 141 mmol/L (136-145); Total Bilirubin 0.2 mg/dL (0.15-1.2); Total Protein 7.1 g/dL (6.6-8.7)
--- NOTE | 2022-11-30 08:13 | CTR_ITS ---
PROCEDURE INFORMATION: Exam: CT Abdomen And Pelvis With Contrast Exam date and time: 11/30/2022 8:25 AM Age: 57 years old Clinical indication: Abdominal pain; Generalized; Prior surgery; Surgery date: 6+ months; Surgery type: Csection; Tubal ligation; Additional info: Back/abdominal pain TECHNIQUE: Imaging protocol: Computed tomography of the abdomen and pelvis with contrast. Radiation optimization: All CT scans at this facility use at least one of these dose optimization techniques: automated exposure control; mA and/or kV adjustment per patient size (includes targeted exams where dose is matched to clinical indication); or iterative reconstruction. Contrast material: OMNIPAQUE 350; Contrast volume: 100 ml; Contrast route: INTRAVENOUS (IV); REPORTING DATA: Count of CT and Cardiac NM exams in prior 12 months: This patient has received 2 known CTs and 0 known cardiac nuclear medicine studies in the 12 months prior to the current study. COMPARISON: CT abdomen pelvis w con* [id number] 07/28/2022 3:48 AM RADIATION DOSE METRICS: Total DLP (mGy-cm): 869.85 FINDINGS: Diaphragm: Small hiatal hernia. Liver: Normal without focal lesions. Gallbladder and bile ducts: Cholelithiasis. No biliary ductal dilatation. Pancreas: Normal without ductal dilatation. Spleen: Normal. Adrenal glands: Normal. No mass. Kidneys and ureters: Subcentimeter bilateral renal hypodensities are too small to characterize. Otherwise unremarkable. Stomach and bowel: No dilatation. No evidence of mucosal thickening. Mild colonic diverticulosis without findings of diverticulitis. Appendix: Normal. Intraperitoneal space: Unremarkable. No free air. No significant fluid collection. Vasculature: Scant atherosclerotic calcification without abdominal aortic aneurysm. Lymph nodes: No enlarged lymph nodes. Urinary bladder: Urinary bladder is unremarkable. Reproductive: Unremarkable as visualized. Bones/joints: No acute fracture. Mild degenerative changes along the spine. Stable small nonaggressive left iliac sclerotic focus. Soft tissues: Unremarkable. CT/CT abdomen pelvis w con* [id number] IMPRESSION: 1. No acute findings. 2. Chronic and incidental findings, to include cholelithiasis and colonic diverticulosis.
[2022-11-30 08:20] VITALS: BP 137/93
[2022-11-30] MEDS: iohexol 350 mg/mL 500 mL Btl (per mL) IV (08:26)
[2022-11-30 09:12] VITALS: BP 159/83; PULSE 84; O2SAT 98
== END 2022-11-30 09:13 | disposition home or self-care (01) ==
PROVIDERS: Emergency Provider Physician Assistant; PCP Electrodiagnostic Medicine
DX: N30.20 Other chronic cystitis without hematuria (principal); K80.20 Calculus of gallbladder without cholecystitis without obstruction; R10.84 Generalized abdominal pain; Z87.891 Personal history of nicotine dependence; Z87.440 Personal history of urinary (tract) infections
CPT/HCPCS: 74177; 80053; 81001; 83690; 85025; 87086; 96374; 96375; 99285; J2270; J2405; J7030; Q9967

== ENCOUNTER → 2023-02-27 11:09 | Outpatient (BNVA) | payer OTHER, SELFPAY | PROVIDERS: PCP Electrodiagnostic Medicine; Visit Provider Obstetrics & Gynecology | DX: R10.2 Pelvic and perineal pain (principal) | CPT/HCPCS: 76830 ==

== ENCOUNTER 2023-03-06 10:41 | Outpatient (CLI) | payer OTHER, SELFPAY ==
--- NOTE | 2023-03-06 10:51 | MM_ITS ---
WS: [id number] Bilateral screening 3D tomosynthesis digital mammogram, 03/06/2023 Clinical Data: SCREENING Comparison: 11/05/2021, 12/09/2019, 11/21/2018, 08/12/2013, 07/06/2004. Findings: The breast parenchymal pattern shows fibroglandular tissue. No spiculated masses or clustered calcifi cations are seen. There are no secondary signs of carcinoma. There are scattered benign calcification s especially in the left breast. There are bilateral lymph nodes in the axilla. Impression: 1. Negative bilateral mammogram unchanged. 2. Recommend annual screening mammograms. MM/[place] [id number] BIRADS: 1-Negative FOLLOW UP: 1 Year Follow-up The CAD maturity checker was used.
== END 2023-03-06 10:42 | disposition home or self-care (01) ==
LOC: RAD 10:42
PROVIDERS: PCP Electrodiagnostic Medicine; Visit Provider Electrodiagnostic Medicine
DX: Z12.31 Encounter for screening mammogram for malignant neoplasm of breast (principal)
CPT/HCPCS: 77063; 77067

== ENCOUNTER 2023-03-13 23:20 | Emergency (ER) | payer OTHER, SELFPAY ==
[2023-03-13 23:40] VITALS: BP 113/95; PULSE 70; RESP 14; TEMP 36.6; O2SAT 99; BMI 32.9
--- NOTE | 2023-03-13 23:51 | CTR_ITS ---
PROCEDURE INFORMATION: Exam: CT Abdomen And Pelvis Without Contrast Exam date and time: 03/14/2023 12:08 AM Age: 57 years old Clinical indication: Abdominal pain; Localized; Patient HX: PT says pain started in back and she has back problems and has now wrapped around to the front upper abdomen bilaterally. Nausea. Finishing antibiotics for upper respiratory. ; Additional info: Abd pain TECHNIQUE: Imaging protocol: Computed tomography of the abdomen and pelvis without contrast. Radiation optimization: All CT scans at this facility use at least one of these dose optimization techniques: automated exposure control; mA and/or kV adjustment per patient size (includes targeted exams where dose is matched to clinical indication); or iterative reconstruction. REPORTING DATA: Count of CT and Cardiac NM exams in prior 12 months: This patient has received 2 known CTs and 0 known cardiac nuclear medicine studies in the 12 months prior to the current study. COMPARISON: CT abdomen pelvis w con* [id number] 11/30/2022 8:25 AM RADIATION DOSE METRICS: Total DLP (mGy-cm): 852.87 FINDINGS: Lungs: Clear. Liver: Unremarkable unenhanced appearance. Gallbladder and bile ducts: Cholelithiasis, similar to prior. No gallbladder wall thickening or pericholecystic fluid. No bile duct dilation. Pancreas: Unremarkable unenhanced appearance. Spleen: Unremarkable. Adrenal glands: Unremarkable. Kidneys and ureters: No hydronephrosis. No renal or ureteral calculi. Stomach and bowel: No bowel obstruction. Appendix: Normal appendix. Intraperitoneal space: No free air. No significant fluid collection. Vasculature: Limited evaluation without IV contrast. No aneurysm. Lymph nodes: No enlarged lymph nodes. Urinary bladder: Unremarkable as visualized. Reproductive: Unremarkable unenhanced appearance as visualized. Bones/joints: No acute fracture. No aggressive osseous lesions. Soft tissues: Unremarkable. CT/CT abdomen pelvis wo con [id number] IMPRESSION: 1. No acute findings in the abdomen/pelvis. 2. Cholelithiasis, similar to prior.
--- NOTE | 2023-03-13 23:52 | W.ED.ABDPA2 ---
HPI - Abdominal Pain General: Chief Complaint: Abdominal Pain Stated Complaint: abdomen pain, back pain Time Seen by Provider: 03/13/23 23:36 Source: patient Mode of arrival: ambulatory Limitations: no limitations History of Present Illness: 57-year-old female has had a history of chronic pelvic and back pain that she states she started having lower abdominal pain roughly 2 and half hours ago that was sharp and severe in nature she rates her pain an 8 out of 10 she had some nausea denies any vomiting she had no constipation denies any fevers. Denies any worsening proving factors. Associated Symptoms: Reports nausea; Denies chills, diarrhea, dysuria, fever(s) and vomiting Review of Systems Const: Denies: fever(s), chills, body aches or change in appetite ENMT: Denies: throat pain or dental pain Card: Denies: chest pain Resp: Denies: dyspnea GI: Reports: abdominal pain and nausea; Denies: vomiting or diarrhea : Denies: dysuria Musc: Denies: neck pain or back pain Skin/Breast: Denies: rash Neuro: Denies: headache(s) PFSH ED PFSH: Medical History Anxiety Controlled on p.o. pain medication as needed managed by PMD Chronic back pain Managed by pain medication by PMD and pain management Chronic cystitis Diagnosed in [address] Christiansen No pertinent past medical history Denies diabetes, asthma, hypertension, seizures, DVT/PE Her primary care provider is Dr. Cooper. Recurrent UTI Vulvodynia Surgical History S/P section 06/24/1989--performed by Dr. Bach at [facility] S/P tubal ligation 06/24/1989--Performed by Dr. Bach at [facility] at time of section. Family History Mother , at age 92 Diabetes Heart disease Stroke Alzheimer disease Sister Lung cancer Father , at age 89 COPD (chronic obstructive pulmonary disease) Denies family history of Colon cancer Ovarian cancer Hyperlipidemia Breast cancer Uterine cancer Thyroid disease Social History Smoking and tobacco/nicotine status: former use of tobacco/nicotine Alcohol intake: never Substance/Drug Use: never Lives independently: Yes Household members: spouse Marital status: Current occupational status: retired Physical Exam Const: COMMON NORMALS: no acute distress, patient oriented x3 and healthy appearing HENMT: COMMON NORMALS: normocephalic and atraumatic HEAD & SCALP: normocephalic and atraumatic Eye: COMMON NORMALS: Equal, round and reactive pupils present and EOMs intact bilaterally PUPIL: Yes Equal, round and reactive pupils present Neck/C-Spine: COMMON NORMALS: full ROM and supple Chest: COMMONS NORMALS: normal inspection of the chest and normal palpation of entire chest wall Resp: COMMON NORMALS: normal respiratory effort, No retractions, No use of accessory muscles and clear to auscultation bilaterally AUSCULTATION: clear to auscultation bilaterally Cardio: COMMON NORMALS: regular rate, regular rhythm and No murmurs present (Cardio) RATE: regular rate RHYTHM: regular rhythm GI: COMMON NORMALS: Normal to inspection, nondistended, normoactive bowel sounds present, Soft to palpation, non-tender and no masses PALPATION: Yes Soft to palpation Extremity: COMMON NORMALS: normal to inspection and full ROM Neuro: COMMON NORMALS: patient oriented x3, moves all extremities and no focal motor deficits Psych: COMMON NORMALS: mental status grossly normal, Normal thought process present and cooperative THOUGHT PROCESS: Normal thought process present Skin: COMMON NORMALS: no rashes or lesions noted and no wounds GENERAL SKIN EXAM: no rashes or lesions noted Course Vital Signs: Vital signs: Vital Signs Temperature 97.9 F 03/13/23 23:40 Pulse Rate 72 03/14/23 01:03 Respiratory Rate 20 H 03/14/23 01:03 Blood Pressure 173/86 03/14/23 01:03 Pulse Oximetry 98 03/14/23 01:03 Oxygen Delivery Me thod Room Air 03/14/23 01:03 MDM - Abdominal Pain Medical Decision Making Patient presents here with abdominal pain blood work and CT scan showed no acute findings her pain has improved here she is to follow-up with PCP and return if worsening she understands agrees to plan. Medical Records I reviewed the patient's medical records. Lab Data I reviewed the patient's lab results. 03/13/23 23:54 03/13/23 23:54 Labs/Radiology: Radiology Impressions Abdomen/Pelvis CT 03/13/23 23:51 IMPRESSION: 1. No acute findings in the abdomen/pelvis. 2. Cholelithiasis, similar to prior. Laboratory Results WBC 13.11 10^3/uL (3.29-11.43) H 03/13/23 23:54 RBC 4.62 10^6/uL (3.85-5.65) 03/13/23 23:54 Hgb 13.10 g/dL (11.27-16.99) 03/13/23 23:54 Hct 42.5 % (36-47) 03/13/23 23:54 MCV 92.0 fl (85-98) 03/13/23 23:54 MCH 28.4 pg (27-33) 03/13/23 23:54 MCHC 30.8 g/dL (30-55) 03/13/23 23:54 RDW 13.4 % (12.1-15.1) 03/13/23 23:54 Plt Count 314 10^3/cmm (157-399) 03/13/23 23:54 MPV 9.3 fL (7.4-10.4) 03/13/23 23:54 Neut % (Auto) 65.0 % 03/13/23 23:54 Lymph % (Auto) 27.1 % 03/13/23 23:54 [place] % (Auto) 6.5 % 03/13/23 23:54 Eos % (Auto) 0.7 % 03/13/23 23:54 Baso % (Auto) 0.2 % 03/13/23 23:54 Neut # (Auto) 8.54 10^3/uL (1.8-7.7) H 03/13/23 23:54 Lymph # (Auto) 3.6 10^3/uL (0.8-4.8) 03/13/23 23:54 [place] # (Auto) 0.9 10^3/uL (0.2-0.9) 03/13/23 23:54 Eos # (Auto) 0.1 10^3/uL (0.0-0.8) 03/13/23 23:54 Baso # (Auto) 0.0 10^3/uL (0.0-0.1) 03/13/23 23:54 Nucleated RBC % (auto) 0 % 03/13/23 23:54 Nucleated RBCs # 0.0 /100WBC 03/13/23 23:54 Sodium 137 mmol/L (136-145) 03/13/23 23:54 Potassium 3.7 mmol/L (3.5-5.1) 03/13/23 23:54 Chloride 99 mmol/L (98-107) 03/13/23 23:54 Carbon Dioxide 27 mmol/L (22-29) 03/13/23 23:54 Anion Gap 14.7 (5-19) 03/13/23 23:54 BUN 15 mg/dL (6-20) 03/13/23 23:54 Creatinine 1.0 mg/dL (0.5-0.9) H 03/13/23 23:54 GFR Calculation 57.4 mL/min (90-130) L 03/13/23 23:54 Glucose 128 mg/dL (65-115) H 03/13/23 23:54 Calculated Osmolality 286 mOsm/kg (285-295) 03/13/23 23:54 Calcium 9.1 mg/dL (8.5-10.5) 03/13/23 23:54 Total Bilirubin 0.2 mg/dL (0.15-1.2) 03/13/23 23:54 AST 10 U/L (0-32) 03/13/23 23:54 ALT 15 U/L (0-33) 03/13/23 23:54 Alkaline Phosphatase 103 U/L (35-105) 03/13/23 23:54 Total Protein 6.9 g/dL (6.6-8.7) 03/13/23 23:54 Albumin 3.7 g/dL (3.5-5.2) 03/13/23 23:54 Globulin 3.2 g/dL (1.3-4.6) 03/13/23 23:54 Lipase 26 U/L (13-60) 03/13/23 23:54 Urine Color Yellow (Yellow) 03/14/23 00:53 Urine Appearance Hazy (CLEAR) A 03/14/23 00:53 Urine pH 5 (5-7) 03/14/23 00:53 Ur Specific [place] 1.025 (1.005-1.030) 03/14/23 00:53 Urine Protein Neg (Negative) 03/14/23 00:53 Urine Glucose (UA) Norm (Normal) 03/14/23 00:53 Urine Ketones Negative (Negative) 03/14/23 00:53 Urine Blood 2+ (Negative) H 03/14/23 00:53 Urine Nitrate Negative (Negative) 03/14/23 00:53 Urine Bilirubin Neg (Negative) 03/14/23 00:53 Urine Urobilinogen Neg mg/dL (Negative) 03/14/23 00:53 Ur Leukocyte Esterase Negative (Negative) 03/14/23 00:53 Urine RBC 0-4 /hpf (0-2) H 03/14/23 00:53 Urine WBC None /hpf (0-5) 03/14/23 00:53 Ur Squamous Epith Cells 15-25 /hpf (0-5) H 03/14/23 00:53 Amorphous Sediment Not Reportable 03/14/23 00:53 Urine Bacteria 1+ /hpf (NONE) H 03/14/23 00:53 Urine Mucus 2+ /hpf 03/14/23 00:53 All radiology interpretation(s) finalized by discharge Discharge Plan Discharge Patient Disposition: Home Clinical Impression: Abdominal pain Condition: Stable Prescriptions: New hydrocodone-acetaminophen 5-325 mg tablet 1 tab PO Q6H PRN (Reason: pain) Qty: 14 0RF ondansetron 4 mg tablet,disintegrating 4 mg PO Q6H PRN (Reason: nausea and vomiting) Qty: 14 0RF No Action lansoprazole 30 mg capsule,delayed release(DR/EC) 30 mg PO DAILY multivitamin Tablet 1 tab PO DAILY cefuroxime axetil 500 mg tablet 500 mg PO BID PRN cyclobenzaprine 10 mg tablet 10 mg PO BID PRN probiotic PO DAILY ibuprofen 800 mg tablet 800 mg PO TID Qty: 90 0RF albuterol sulfate 90 mcg/actuation aerosol powdr breath activated 2 inh inhalation Q6H PRN solifenacin 10 mg tablet 10 mg PO DAILY estradiol 0.01 % (0.1 mg/gram) cream 1 appful vaginal DAILY Rx Instructions: for 14 days Discharge Orders: Discharge ED (Routine); Ordered 03/14/23 Ordered By: Mar Ovalle Referrals: Misbah Cooper DO [Primary Care Provider] - 1-3 days Discharge Diet: Advance as tolerated Discharge Activity: Resume usual activity Patient Instructions: Abdominal Pain (ED) Coding Level of Care Code ED Log Processor Operator for Rafia De Luna
[2023-03-14] VITALS: BP 163/64; PULSE 71; RESP 16; O2SAT 100
[2023-03-14 00:14] LABS: Basophils % 0.2 %; Eosinophils # 0.1 10^3/uL (0.0-0.8); Eosinophils % 0.7 %; Hematocrit 42.5 % (36-47); Lymphocytes # 3.6 10^3/uL (0.8-4.8); Lymphocytes % 27.1 %; Mean Corpuscular HGB Conc 30.8 g/dL (30-55); Mean Corpuscular Hemoglobin 28.4 pg (27-33); Mean Platelet Volume 9.3 fL (7.4-10.4); Monocytes # 0.9 10^3/uL (0.2-0.9); Monocytes % 6.5 %; Neutrophils # 8.54 10^3/uL (1.8-7.7); Nucleated Red Blood Cells % 0 %; Platelet Count 314 10^3/cmm (157-399); Red Blood Count 4.62 10^6/uL (3.85-5.65); Red Cell Distribution Width 13.4 % (12.1-15.1); White Blood Count 13.11 10^3/uL (3.29-11.43)
[2023-03-14] MEDS: ondansetron 2 mg/ML SDV 2 mL 4 MG IVP (00:19)
[2023-03-14 00:20] VITALS: RESP 12; O2SAT 99
[2023-03-14] MEDS: morphine 4 mg/mL SDV 1 mL IVP (00:20)
[2023-03-14 00:22] LABS: Alanine Aminotransferase 15 U/L (0-33); Albumin Level 3.7 g/dL (3.5-5.2); Alkaline Phosphatase 103 U/L (35-105); Anion Gap 14.7 (5-19); Aspartate Amino Transferase 10 U/L (0-32); Blood Urea Nitrogen 15 mg/dL (6-20); Calcium 9.1 mg/dL (8.5-10.5); Carbon Dioxide 27 mmol/L (22-29); Chloride 99 mmol/L (98-107); Globulin 3.2 g/dL (1.3-4.6); Glomerular Filtration Rate 57.4 mL/min (90-130); Glucose 128 mg/dL (65-115); Lipase 26 U/L (13-60); Osmolality Calculated 286 mOsm/kg (285-295); Potassium 3.7 mmol/L (3.5-5.1); Sodium 137 mmol/L (136-145); Total Bilirubin 0.2 mg/dL (0.15-1.2); Total Protein 6.9 g/dL (6.6-8.7)
[2023-03-14 00:23] LABS: Creatinine Clr Calc Pharmacy 62.1961
[2023-03-14 00:55] VITALS: BP 190/101; PULSE 72; RESP 15; O2SAT 96
[2023-03-14 01:03] VITALS: BP 173/86; PULSE 72; RESP 20; O2SAT 98
[2023-03-14 01:03] LABS: Add Urine Culture? No; Add Urine Microscopic? YES; Bacteria Urine 1+ /hpf; Bilirubin Urine Neg (Negative); Blood Urine 2+ (Negative); Glucose Urine UA Norm (Normal); Ketones Urine Negative (Negative); Leukocyte Esterase Urine Negative (Negative); Mucus Urine 2+ /hpf; Nitrate Urine Negative (Negative); Protein Urine Neg (Negative); RBC Urine 0-4 /hpf (0-2); Specific Gravity, Urine 1.025 (1.005-1.030); Squamous Epithelial Cell Urine 15-25 /hpf (0-5); Urine Appearance Hazy (CLEAR); Urine Color Yellow (Yellow); Urobilinogen Urine Neg (Negative); pH Urine 5 (5-7)
[2023-03-14] MEDS: sodium chloride 0.9% 1,000 ML 999 ML IV (01:04)
[2023-03-14] MEDS: HYDROmorphone 1 mg/mL INJ 1 mL IVP (01:19)
--- NOTE | 2023-03-14 01:22 | PC.NURSE ---
Patient refused IVP dilaudid. Dr Ovalle informed. Verbal orders given to this nurse to put in order for [place] 5-325 1 tablet once PO.
[2023-03-14] MEDS: HYDROcodone-acetaminophen 5-325 mg Tablet 1 TAB PO (01:24)
[2023-03-14 01:48] VITALS: BP 187/93; PULSE 71; RESP 14; O2SAT 95
== END 2023-03-14 01:52 | disposition home or self-care (01) ==
PROVIDERS: Emergency Provider Emergency Medicine; PCP Electrodiagnostic Medicine
DX: R10.30 Lower abdominal pain, unspecified (principal); K80.20 Calculus of gallbladder without cholecystitis without obstruction; Z87.891 Personal history of nicotine dependence
CPT/HCPCS: 74176; 80053; 81001; 83690; 85025; 96374; 96375; 99285; J1170; J2270; J2405; J7030

== ENCOUNTER 2023-05-06 15:57 | Emergency (ER) | payer OTHER, SELFPAY ==
[2023-05-06 16:03] VITALS: BP 145/83; PULSE 70; RESP 16; TEMP 36.7; O2SAT 98; BMI 32.9
[2023-05-06 17:31] VITALS: BP 147/83; PULSE 77; RESP 14; O2SAT 97
--- NOTE | 2023-05-06 17:37 | CTR_ITS ---
PROCEDURE INFORMATION: Exam: CT Abdomen And Pelvis With Contrast Exam date and time: 05/06/2023 6:23 PM Age: 57 years old Clinical indication: Abdominal pain; Localized; Right lower quadrant (rlq); Prior surgery; Surgery date: 6+ months; Surgery type: Tubal; Additional info: Rlq abdominal pain TECHNIQUE: Imaging protocol: Computed tomography of the abdomen and pelvis with contrast. Radiation optimization: All CT scans at this facility use at least one of these dose optimization techniques: automated exposure control; mA and/or kV adjustment per patient size (includes targeted exams where dose is matched to clinical indication); or iterative reconstruction. Contrast material: OMNI 350; Contrast volume: 100 ml; Contrast route: INTRAVENOUS (IV); COMPARISON: CT abdomen pelvis wo con [id number] 03/14/2023 12:08 AM RADIATION DOSE METRICS: Total DLP (mGy-cm): 761 FINDINGS: Liver: Normal. No mass. Gallbladder and bile ducts: Multiple gas-filled stones in the gallbladder. Pancreas: Normal. No ductal dilation. Spleen: Normal. No splenomegaly. Adrenal glands: Normal. No mass. Kidneys and ureters: Normal. No hydronephrosis. Stomach and bowel: Unremarkable. No obstruction. No mucosal thickening. Appendix: No evidence of appendicitis. Intraperitoneal space: Unremarkable. No free air. No significant fluid collection. Vasculature: Unremarkable. No abdominal aortic aneurysm. Lymph nodes: Unremarkable. No enlarged lymph nodes. Urinary bladder: Unremarkable as visualized. Reproductive: Unremarkable as visualized. Bones/joints: Unremarkable. No acute fracture. Soft tissues: Unremarkable. CT/CT abdomen pelvis w con* [id number] IMPRESSION: 1. No bowel obstruction or inflammatory process associated with the bowel. 2. No free air or significant free fluid in the abdomen or pelvis. 3. The appendix images normally.
--- NOTE | 2023-05-06 17:38 | ED_ITS ---
HPI - Female Genitourinary 2 General: Chief complaint: Urogenital-Female Stated complaint: right side pains Time Seen by Provider: 05/06/23 17:22 Source: patient Mode of arrival: ambulatory Limitations: no limitations History of Present Illness: 57yo female presents with significant ot her for evaluation of right lower quadrant abdominal pain. Patient states she has had intermittent pain in the right lower quadrant for the past several months. States that she has seen her primary care as well as urology. States her urologist that she may have had an infected stone, but they have not been able to capture the stone on CT. Her last CT scan was February 2023. States that she did see her primary care yesterday who was not able to visualize a kidney stone on the x-ray and thought she had increased stool. Recommended that she use laxatives, but patient is still having discomfort. She states that she did have blood in her urine at the primary care office, but this is not unusual for her. Patient states that she has had chills. She denies fever, vomiting, dysuria, any other concern at this time. Associated symptoms: Reports abdominal pain (RLQ) Review of Systems 2 Const: Reports: chills; Denies: fever(s) Card: Denies: chest pain Resp: Denies: dyspnea GI: Reports: abdominal pain (RLQ); Denies: vomiting : Denies: difficulty voiding or dysuria PFSH ED 2 PFSH: Medical History Anxiety Controlled on p.o. pain medication as needed managed by PMD Chronic back pain Managed by pain medication by PMD and pain management Chronic cystitis Diagnosed in [address] Christiansen No pertinent past medical history Denies diabetes, asthma, hypertension, seizures, DVT/PE Her primary care provider is Dr. Cooper. Recurrent UTI Vulvodynia Surgical History S/P section 06/24/1989--performed by Dr. Bach at [facility] S/P tubal ligation 06/24/1989--Performed by Dr. Bach at [facility] at time of section. Family History Mother , at age 92 Diabetes Heart disease Stroke Alzheimer disease Sister Lung cancer Father , at age 89 COPD (chronic obstructive pulmonary disease) Denies family history of Colon cancer Ovarian cancer Hyperlipidemia Breast cancer Uterine cancer Thyroid disease Social History Smoking and tobacco/nicotine status: former use of tobacco/nicotine Alcohol intake: never Substance/Drug Use: never Lives independently: Yes Household members: spouse Marital status: Current occupational status: retired Physical Exam 2 Const: COMMON NORMALS: no acute distress, patient oriented x3, healthy appearing and alert GENERAL APPEARANCE: cooperative, comfortable and well kempt OTHER: Patient is ambulatory to vertical [facility] area for exam unassisted. She is sitting upright in an exam chair in no acute distress. She is able to make position changes unassisted. Family is at bedside HENMT: COMMON NORMALS: normocephalic, external ears normal and Normal external nose present HEAD & SCALP: normocephalic NOSE: Normal external nose present EXTERNAL EAR: Yes external ears normal Eye: GENERAL EYE: appearance normal, both eyes and all related structures Resp: COMMON NORMALS: normal respiratory effort, No use of accessory muscles and clear to auscultation bilaterally AUSCULTATION: clear to auscultation bilaterally Cardio: COMMON NORMALS: regular rate and regular rhythm RATE: regular rate RHYTHM: regular rhythm GI: COMMON NORMALS: Soft to palpation PALPATION: Yes Soft to palpation and Yes Tenderness to palpation present (GI) Details: RLQ : BLADDER/KIDNEY EXAM: Yes CVA tenderness on the right Back/Pelvis: GENERAL BACK: Yes CVA tenderness Extremity: COMMON NORMALS: full ROM Neuro: COMMON NORMALS: patient oriented x3 SENSORIUM/ORIENTATION: Yes alert Psych: COMMON NORMALS: cooperative APPEARANCE: Yes well kempt Course 2 Vital Signs: Vital signs: Vital Signs Temperature 98.0 F 05/06/23 16:03 Pulse Rate 93 05/06/23 20:41 Respiratory Rate 17 05/06/23 20:41 Blood Pressure 145/101 05/06/23 20:41 Pulse Oximetry 93 05/06/23 20:41 Oxygen Delivery Me thod Room Air 05/06/23 17:31 MDM - Female Medical Decision Making 57yo female here with significant other for right lower quadrant abdominal pain. Patient states she has had intermittent pain on the right side for several months. She has seen both primary care and urologist. Urologist thought that she may have a kidney stone, but they did not capture [address] scan 2 months ago. She did see the primary care yesterday who thought she might have constipation after completing an x-ray, no stone noted on x-ray. Patient reports her pain is worse. Denies fever, vomiting, dysuria, any other concern at this time. Patient is nontoxic in appearance. Vital signs are stable. CBC is grossly unremarkable. CMP with a alkaline phosphatase of 123 and mildly elevated CRP of 11.2, otherwise unremarkable. UA is grossly unremarkable. There are no acute concerning abnormalities noted in the labs today. Contrasted CTAP with no bowel obstruction or inflammatory process associated with the bowel. There is no free air or significant free fluid in the abdomen or pelvis, and the appendix appeared normal. Discussed these findings with patient and significant other. Advised that we do not have an explanation for her intermittent pain. Discussed possibility of muscular pain. Patient did not have pain at time of reexam. Tizanidine prescribed. Encourage patient to continue to monitor her symptoms. Advised to follow-up with primary care, call later this week with an update of symptoms and to discuss a recheck. Recommend return to the emergency department if any rapid worsening symptoms, onset of fever associated with worsening, and as needed. Patient and family state understanding and have no further questions at this time. Differential Diagnosis Likely abdominal pain, acute appendicitis, calculus of kidney and constipation Medical Records I reviewed the patient's medical records. Lab Data I reviewed the patient's lab results. 05/06/23 17:49 05/06/23 17:49 Radiology Impressions Abdomen/Pelvis CT 05/06/23 17:37 IMPRESSION: 1. No bowel obstruction or inflammatory process associated with the bowel. 2. No free air or significant free fluid in the abdomen or pelvis. 3. The appendix images normally. Laboratory Results WBC 10.50 10^3/uL (3.29-11.43) 05/06/23 17:49 RBC 4.77 10^6/uL (3.85-5.65) 05/06/23 17:49 Hgb 13.90 g/dL (11.27-16.99) 05/06/23 17:49 Hct 42.1 % (36-47) 05/06/23 17:49 MCV 88.3 fl (85-98) 05/06/23 17:49 MCH 29.1 pg (27-33) 05/06/23 17:49 MCHC 33.0 g/dL (30-55) 05/06/23 17:49 RDW 13.0 % (12.1-15.1) 05/06/23 17:49 Plt Count 316 10^3/cmm (157-399) 05/06/23 17:49 MPV 10.3 fL (7.4-10.4) 05/06/23 17:49 Neut % (Auto) 63.7 % 05/06/23 17:49 Lymph % (Auto) 28.5 % 05/06/23 17:49 [place] % (Auto) 6.3 % 05/06/23 17:49 Eos % (Auto) 0.9 % 05/06/23 17:49 Baso % (Auto) 0.4 % 05/06/23 17:49 Neut # (Auto) 6.70 10^3/uL (1.8-7.7) 05/06/23 17:49 Lymph # (Auto) 3.0 10^3/uL (0.8-4.8) 05/06/23 17:49 [place] # (Auto) 0.7 10^3/uL (0.2-0.9) 05/06/23 17:49 Eos # (Auto) 0.1 10^3/uL (0.0-0.8) 05/06/23 17:49 Baso # (Auto) 0.0 10^3/uL (0.0-0.1) 05/06/23 17:49 Nucleated RBC % (auto) 0 % 05/06/23 17:49 Nucleated RBCs # 0.0 /100WBC 05/06/23 17:49 Sodium 142 mmol/L (136-145) 05/06/23 17:49 Potassium 3.8 mmol/L (3.5-5.1) 05/06/23 17:49 Chloride 102 mmol/L (98-107) 05/06/23 17:49 Carbon Dioxide 28 mmol/L (22-29) 05/06/23 17:49 Anion Gap 15.8 (5-19) 05/06/23 17:49 BUN 12 mg/dL (6-20) 05/06/23 17:49 Creatinine 0.6 mg/dL (0.5-0.9) 05/06/23 17:49 GFR Calculation 103.4 mL/min (90-130) 05/06/23 17:49 Glucose 99 mg/dL (65-115) 05/06/23 17:49 Calculated Osmolality 294 mOsm/kg (285-295) 05/06/23 17:49 Calcium 9.6 mg/dL (8.5-10.5) 05/06/23 17:49 Total Bilirubin 0.3 mg/dL (0.15-1.2) 05/06/23 17:49 AST 16 U/L (0-32) 05/06/23 17:49 ALT 14 U/L (0-33) 05/06/23 17:49 Alkaline Phosphatase 123 U/L (35-105) H 05/06/23 17:49 C-Reactive Protein 11.2 mg/L (0.0-4.9) H 05/06/23 17:49 Total Protein 7.8 g/dL (6.6-8.7) 05/06/23 17:49 Albumin 4.2 g/dL (3.5-5.2) 05/06/23 17:49 Globulin 3.6 g/dL (1.3-4.6) 05/06/23 17:49 Urine Color Colorless (Yellow) 05/06/23 17:49 Urine Appearance Clear (CLEAR) 05/06/23 17:49 Urine pH 6 (5-7) 05/06/23 17:49 Ur Specific [place] 1.010 (1.005-1.030) 05/06/23 17:49 Urine Protein Neg (Negative) 05/06/23 17:49 Urine Glucose (UA) Norm (Normal) 05/06/23 17:49 Urine Ketones Negative (Negative) 05/06/23 17:49 Urine Blood Neg (Negative) 05/06/23 17:49 Urine Nitrate Negative (Negative) 05/06/23 17:49 Urine Bilirubin Neg (Negative) 05/06/23 17:49 Urine Urobilinogen Norm mg/dL (Negative) 05/06/23 17:49 Ur Leukocyte Esterase Negative (Negative) 05/06/23 17:49 All radiology interpretation(s) finalized by discharge Discharge Plan Discharge Patient Disposition: Home Clinical Impression: Right sided abdominal pain Condition: Stable Prescriptions: New tizanidine 2 mg capsule 2 mg PO TID PRN (Reason: muscle spasticity) Qty: 20 0RF No Action lansoprazole 30 mg capsule,delayed release(DR/EC) 30 mg PO DAILY multivitamin Tablet 1 tab PO DAILY probiotic PO DAILY [place] 60 mg tablet 60 mg PO DAILY Qty: 30 0RF Rx Instructions: must administer with food, preferably a high-fat meal albuterol sulfate 90 mcg/actuation aerosol powdr breath activated 2 inh inhalation Q6H PRN Discharge Orders: Discharge ED (Routine); Ordered 05/06/23 Ordered By: Ismael Espinoza Referrals: Misbah Cooper DO [Primary Care Provider] - Discharge Diet: Advance as tolerated Discharge Activity: Resume usual activity Patient Instructions: Abdominal Pain (ED) Activity Restrictions/Additional Instructions: No acute abnormalities were noted on your labs or your CT scan today The pain may be muscular in nature. Tizanidine has been sent to your pharmacy to help with discomfort Follow-up with primary care, call in 1 to 2 days with an update of symptoms and to discuss a recheck Return to the emergency department if any rapid worsening symptoms, onset of fever associated with worsening symptoms, and as needed Coding Level of Care Code ED Director Treasurer for Rafia De Luna
[2023-05-06 18:04] LABS: Add Urine Microscopic? NO; Charge for UA Resulting for Rev
[2023-05-06 18:13] LABS: Bilirubin Urine Neg (Negative); Blood Urine Neg (Negative); Glucose Urine UA Norm (Normal); Ketones Urine Negative (Negative); Leukocyte Esterase Urine Negative (Negative); Nitrate Urine Negative (Negative); Protein Urine Neg (Negative); Urine Appearance Clear (CLEAR); Urine Color Colorless (Yellow); Urobilinogen Urine Norm (Negative); pH Urine 6 (5-7)
[2023-05-06] MEDS: iohexol 350 mg/mL 500 mL Btl (per mL) IV (18:26)
[2023-05-06 18:47] LABS: Basophils % 0.4 %; Eosinophils # 0.1 10^3/uL (0.0-0.8); Eosinophils % 0.9 %; Hematocrit 42.1 % (36-47); Lymphocytes % 28.5 %; Mean Corpuscular Hemoglobin 29.1 pg (27-33); Mean Corpuscular Volume 88.3 fl (85-98); Mean Platelet Volume 10.3 fL (7.4-10.4); Monocytes # 0.7 10^3/uL (0.2-0.9); Monocytes % 6.3 %; Neutrophils % 63.7 %; Nucleated Red Blood Cells % 0 %; Platelet Count 316 10^3/cmm (157-399); Red Blood Count 4.77 10^6/uL (3.85-5.65)
[2023-05-06 19:00] LABS: Alanine Aminotransferase 14 U/L (0-33); Albumin Level 4.2 g/dL (3.5-5.2); Alkaline Phosphatase 123 U/L (35-105); Anion Gap 15.8 (5-19); Aspartate Amino Transferase 16 U/L (0-32); Blood Urea Nitrogen 12 mg/dL (6-20); C Reactive Protein 11.2 mg/L (0.0-4.9); Calcium 9.6 mg/dL (8.5-10.5); Carbon Dioxide 28 mmol/L (22-29); Chloride 102 mmol/L (98-107); Globulin 3.6 g/dL (1.3-4.6); Glomerular Filtration Rate 103.4 mL/min (90-130); Glucose 99 mg/dL (65-115); Osmolality Calculated 294 mOsm/kg (285-295); Potassium 3.8 mmol/L (3.5-5.1); Sodium 142 mmol/L (136-145); Total Bilirubin 0.3 mg/dL (0.15-1.2); Total Protein 7.8 g/dL (6.6-8.7)
[2023-05-06 20:41] VITALS: BP 145/101; PULSE 93; RESP 17; O2SAT 93
--- NOTE | 2023-05-07 10:42 | PC.NURSE ---
RX CALLED INTO [facility] D/T NOT BEING TRANSMITTED.
== END 2023-05-06 20:42 | disposition home or self-care (01) ==
PROVIDERS: Emergency Provider Nurse Practitioner; PCP Electrodiagnostic Medicine
DX: R10.31 Right lower quadrant pain (principal); Z87.891 Personal history of nicotine dependence
CPT/HCPCS: 74177; 80053; 81003; 85025; 86140; 99285; Q9967

== ENCOUNTER 2023-06-08 14:37 | Observation (INO) | payer OTHER, SELFPAY ==
[2023-06-08] VITALS (8 sets, daily range): BP systolic 136–154; BP diastolic 64–82; PULSE 63–80; RESP 15–16; TEMP 36.5–36.7; O2SAT 95–98; BMI 32.1
--- NOTE | 2023-06-08 15:47 | ECG_ITS ---
[facility] Test Date: 2023-06-08 Pat Name: Dori Rodríguez Department: Room: Gender: Female [place]: : 1965 Requested By: Imtiaz Romo Order Number: [id number] Moni MD: Pancho Rudd M.D. Measurements Intervals [place] Rate: 68 P: 28 SD: 122 QRS: 44 QRSD: 102 T: 38 QT: 387 QTc: 413 Interpretive Statements SINUS RHYTHM Compared to ECG 07/28/2022 04:45:29 Ectopic atrial rhythm no longer present Electronically Signed On 06-09-2023 14:17:35 HAT CONDITIONER by Pancho Rudd M.D. [id number]
[2023-06-08 16:11] LABS: Basophils % 0.1 %; Eosinophils % 0.1 %; Hematocrit 40.3 % (36-47); Lymphocytes # 1.7 10^3/uL (0.8-4.8); Lymphocytes % 13.7 %; Mean Corpuscular Hemoglobin 29.3 pg (27-33); Mean Corpuscular Volume 88.8 fl (85-98); Mean Platelet Volume 9.2 fL (7.4-10.4); Monocytes # 0.9 10^3/uL (0.2-0.9); Monocytes % 7.3 %; Neutrophils # 9.78 10^3/uL (1.8-7.7); Neutrophils % 78.6 %; Nucleated Red Blood Cells % 0 %; Platelet Count 343 10^3/cmm (157-399); Red Blood Count 4.54 10^6/uL (3.85-5.65); Red Cell Distribution Width 12.4 % (12.1-15.1); White Blood Count 12.45 10^3/uL (3.29-11.43)
[2023-06-08] MEDS: ondansetron 2 mg/ML SDV 2 mL 4 MG IVP (16:11)
[2023-06-08 16:24] LABS: Add Urine Culture? No; Add Urine Microscopic? YES; Bacteria Urine TRACE /hpf; Bilirubin Urine Neg (Negative); Blood Urine 2+ (Negative); Glucose Urine UA Norm (Normal); Ketones Urine Negative (Negative); Leukocyte Esterase Urine Negative (Negative); Mucus Urine 1+ /hpf; Nitrate Urine Negative (Negative); Protein Urine Neg (Negative); RBC Urine 0-4 /hpf (0-2); Urine Appearance Clear (CLEAR); Urine Color Amber (Yellow); Urobilinogen Urine 4 mg/dL (Negative); WBC Urine 0-4 /hpf (0-5); pH Urine 5 (5-7)
[2023-06-08 16:27] LABS: Alanine Aminotransferase 453 U/L (0-33); Alkaline Phosphatase 179 U/L (35-105); Blood Urea Nitrogen 19 mg/dL (6-20); Carbon Dioxide 28 mmol/L (22-29); Chloride 100 mmol/L (98-107); Globulin 3.4 g/dL (1.3-4.6); Glomerular Filtration Rate 86.6 mL/min (90-130); Glucose 115 mg/dL (65-115); Lipase 40 U/L (13-60); Osmolality Calculated 293 mOsm/kg (285-295); Sodium 140 mmol/L (136-145); Total Bilirubin 1.4 mg/dL (0.15-1.2); Total Protein 7.4 g/dL (6.6-8.7)
[2023-06-08 16:35] LABS: Aspartate Amino Transferase 866 U/L (0-32)
[2023-06-08] MEDS: morphine 4 mg/mL SDV 1 mL 2 MG IVP (16:50)
--- NOTE | 2023-06-08 17:02 | USR_ITS ---
PROCEDURE INFORMATION: Exam: US Abdomen, Limited; Right Upper Quadrant Exam date and time: 06/08/2023 5:16 PM Age: 57 years old Clinical indication: Abdominal pain; Additional info: Epigastric pain, elevated lft's TECHNIQUE: Imaging protocol: Real time ultrasound of the abdomen with image documentation. Limited exam focused on the right upper quadrant. COMPARISON: US gall bladder [id number] 03/02/2022 2:38 PM FINDINGS: Liver: Normal. No masses. Mild diffuse hepatic steatosis. Portal vein is patent = 53.3 cm/s. Gallbladder: Multiple echogenic avascular nondependent foci/polyps which appears to be non mobile measuring maximally 1.5 centimeters in length, some of these are calcified in have posterior acoustic shadowing. No gallbladder wall thickening measured, or pericholecystic fluid. Common bile duct measures up to 0.5 cm. Biliary ducts: Normal. No stones. No dilation. Pancreas: Visualized pancreas is unremarkable. Right kidney: Normal. No mass. No hydronephrosis. US/US gall bladder [id number] IMPRESSION: 1. Multiple echogenic, avascular, nonmobile tubular echogenic gallbladder intraluminal foci, findings likely represent gallbladder polyps measuring maximally up to 1.5 centimeters. Surgical consult is recommended for further management. 2. No gallbladder wall thickening, or pericholecystic fluid.
--- NOTE | 2023-06-08 17:35 | ECG_ITS ---
[facility] Test Date: 2023-06-08 Pat Name: Dori Rodríguez Department: Room: Gender: Female Air Traffic Control Specialist Center: : 1965 Requested By: Imtiaz Romo Order Number: [id number] Moni MD: Pancho Rudd M.D. Measurements Intervals [place] Rate: 71 P: 16 RI: 133 QRS: 39 QRSD: 90 T: 35 QT: 399 QTc: 434 Interpretive Statements SINUS RHYTHM Compared to ECG 06/08/2023 15:47:16 No significant changes Electronically Signed On 06-09-2023 14:20:22 INDOOR PLANT TECHNICIAN by Pancho Rudd M.D. [id number]
--- NOTE | 2023-06-08 17:42 | ED_ITS ---
Documented by User: Elier Do MD 06/08/23 18:04 HPI - Abdominal Pain 2 General: Chief Complaint: Abdominal Pain Stated Complaint: abd pain, nausea Time Seen by Provider: 06/08/23 15:38 History of Present Illness: This patient is a 57-year-old white female who presents to the ER complaining of epigastric and right upper quadrant pain. She states it feels like indigestion. It came on at 11 AM today. Patient has known gallstones. She also has a history of gastroesophageal reflux disease. Past surgical history includes a C- section and bilateral tubal ligation. She has not had a fever. Review of Systems 2 General: Reports: 10 or more systems reviewed and unremarkable except in HPI and below GI: Reports: abdominal pain PFSH ED 2 PFSH: Medical History Recurrent UTI Vulvodynia Chronic back pain Managed by pain medication by PMD and pain management Anxiety Controlled on p.o. pain medication as needed managed by PMD Chronic cystitis Diagnosed in [address] Christiansen No pertinent past medical history Denies diabetes, asthma, hypertension, seizures, DVT/PE Her primary care provider is Dr. Cooper. Surgical History S/P tubal ligation 06/24/1989--Performed by Dr. Bach at [facility] at time of section. S/P section 06/24/1989--performed by Dr. Bach at [facility] Family History Mother , at age 92 Diabetes Heart disease Stroke Alzheimer disease Sister Lung cancer Father , at age 89 COPD (chronic obstructive pulmonary disease) Denies family history of Colon cancer Ovarian cancer Hyperlipidemia Breast cancer Uterine cancer Thyroid disease Social History Smoking and tobacco/nicotine status: former use of tobacco/nicotine Alcohol intake: never Substance/Drug Use: never Lives independently: Yes Household members: spouse Marital status: Current occupational status: retired Physical Exam 2 Const: COMMON NORMALS: no acute distress, patient oriented x3 and no limitations GENERAL APPEARANCE: cooperative and comfortable HENMT: COMMON NORMALS: normocephalic, atraumatic, Normal nasal mucous membranes and turbinates present, moist oral mucous membranes and oropharynx normal HEAD & SCALP: normal to inspection, normocephalic and atraumatic F NANCY & SINUS: normal facial exam NOSE: Normal nasal mucous membranes and turbinates present Eye: COMMON NORMALS: Equal, round and reactive pupils present, EOMs intact bilaterally and conjunctivae normal GENERAL EYE: appearance normal, both eyes and all related structures CONJUNCTIVA: Yes conjunctivae normal PUPIL: Yes Equal, round and reactive pupils present Neck/C-Spine: COMMON NORMALS: supple and no JVD Chest: COMMONS NORMALS: normal inspection of the chest Resp: COMMON NORMALS: normal respiratory effort and clear to auscultation bilaterally AUSCULTATION: clear to auscultation bilaterally Cardio: COMMON NORMALS: no JVD, regular rate, regular rhythm, No gallops present (Cardio), No murmurs present (Cardio) and No rub (Cardio) RATE: r egular rate RHYTHM: regular rhythm GI: COMMON NORMALS: Soft to palpation AUSCULTATION: Yes normoactive bowel sounds PALPATION: Yes Soft to palpation, Yes Tenderness to palpation present (GI) Details: RUQ, No Guarding due to palpation present (GI) and No Rebound tenderness present : COMMON NORMALS: Yes no CVA tenderness BLADDER/KIDNEY EXAM: Yes no CVA tenderness Back/Pelvis: COMMON NORMALS: no CVA tenderness and thoracic and lumbar spine normal to inspection Extremity: COMMON NORMALS: normal to inspection Neuro: COMMON NORMALS: patient oriented x3 and CN's II-XII intact bilaterally Psych: COMMON NORMALS: mental status grossly normal, Normal thought process present and cooperative THOUGHT PROCESS: Normal thought process present Skin: COMMON NORMALS: no rashes or lesions noted, turgor normal and no jaundice GENERAL SKIN EXAM: no rashes or lesions noted and turgor normal Course 2 Vital Signs: Vital signs: Vital Signs Temperature 98.0 F 06/08/23 15:14 Pulse Rate 76 06/08/23 19:53 Respiratory Rate 15 06/08/23 19:53 Blood Pressure 148/73 06/08/23 19:53 Pulse Oximetry 97 06/08/23 19:53 Oxygen Delivery Me thod Room Air 06/08/23 19:53 MDM - Abdominal Pain Medical Decision Making EKG revealed normal sinus rhythm with no ST segment abnormalities. CBC reveals a white blood cell count of 12.5. CMP revealed an AST of 866, ALT 453 and an alk phos of 179. Urinalysis normal. Lipase 40. Patient was given 2 mg of morphine and 4 mg of Zofran IV and she is feeling somewhat better. Right upper quadrant ultrasound is pending. Lab Data 06/08/23 16:05 06/08/23 16:05 Labs/Radiology: Radiology Impressions Gallbladder Ultrasound 06/08/23 17:02 IMPRESSION: 1. Multiple echogenic, avascular, nonmobile tubular echogenic gallbladder intraluminal foci, findings likely represent gallbladder polyps measuring maximally up to 1.5 centimeters. Surgical consult is recommended for further management. 2. No gallbladder wall thickening, or pericholecystic fluid. Laboratory Results WBC 12.45 10^3/uL (3.29-11.43) H 06/08/23 16:05 RBC 4.54 10^6/uL (3.85-5.65) 06/08/23 16:05 Hgb 13.30 g/dL (11.27-16.99) 06/08/23 16:05 Hct 40.3 % (36-47) 06/08/23 16:05 MCV 88.8 fl (85-98) 06/08/23 16:05 MCH 29.3 pg (27-33) 06/08/23 16:05 MCHC 33.0 g/dL (30-55) 06/08/23 16:05 RDW 12.4 % (12.1-15.1) 06/08/23 16:05 Plt Count 343 10^3/cmm (157-399) 06/08/23 16:05 MPV 9.2 fL (7.4-10.4) 06/08/23 16:05 Neut % (Auto) 78.6 % 06/08/23 16:05 Lymph % (Auto) 13.7 % 06/08/23 16:05 [place] % (Auto) 7.3 % 06/08/23 16:05 Eos % (Auto) 0.1 % 06/08/23 16:05 Baso % (Auto) 0.1 % 06/08/23 16:05 Neut # (Auto) 9.78 10^3/uL (1.8-7.7) H 06/08/23 16:05 Lymph # (Auto) 1.7 10^3/uL (0.8-4.8) 06/08/23 16:05 [place] # (Auto) 0.9 10^3/uL (0.2-0.9) 06/08/23 16:05 Eos # (Auto) 0.0 10^3/uL (0.0-0.8) 06/08/23 16:05 Baso # (Auto) 0.0 10^3/uL (0.0-0.1) 06/08/23 16:05 Nucleated RBC % (auto) 0 % 06/08/23 16:05 Nucleated RBCs # 0.0 /100WBC 06/08/23 16:05 Sodium 140 mmol/L (136-145) 06/08/23 16:05 Potassium 4.0 mmol/L (3.5-5.1) 06/08/23 16:05 Chloride 100 mmol/L (98-107) 06/08/23 16:05 Carbon Dioxide 28 mmol/L (22-29) 06/08/23 16:05 Anion Gap 16.0 (5-19) 06/08/23 16:05 BUN 19 mg/dL (6-20) 06/08/23 16:05 Creatinine 0.7 mg/dL (0.5-0.9) 06/08/23 16:05 GFR Calculation 86.6 mL/min (90-130) L 06/08/23 16:05 Glucose 115 mg/dL (65-115) 06/08/23 16:05 Calculated Osmolality 293 mOsm/kg (285-295) 06/08/23 16:05 Calcium 9.0 mg/dL (8.5-10.5) 06/08/23 16:05 Total Bilirubin 1.4 mg/dL (0.15-1.2) H 06/08/23 16:05 AST 866 U/L (0-32) H 06/08/23 16:05 ALT 453 U/L (0-33) H 06/08/23 16:05 Alkaline Phosphatase 179 U/L (35-105) H 06/08/23 16:05 Total Protein 7.4 g/dL (6.6-8.7) 06/08/23 16:05 Albumin 4.0 g/dL (3.5-5.2) 06/08/23 16:05 Globulin 3.4 g/dL (1.3-4.6) 06/08/23 16:05 Lipase 40 U/L (13-60) 06/08/23 16:05 Urine Color Lena (Yellow) 06/08/23 15:58 Urine Appearance Clear (CLEAR) 06/08/23 15:58 Urine pH 5 (5-7) 06/08/23 15:58 Ur Specific [place] 1.020 (1.005-1.030) 06/08/23 15:58 Urine Protein Neg (Negative) 06/08/23 15:58 Urine Glucose (UA) Norm (Normal) 06/08/23 15:58 Urine Ketones Negative (Negative) 06/08/23 15:58 Urine Blood 2+ (Negative) H 06/08/23 15:58 Urine Nitrate Negative (Negative) 06/08/23 15:58 Urine Bilirubin Neg (Negative) 06/08/23 15:58 Urine Urobilinogen 4 mg/dL (Negative) H 06/08/23 15:58 Ur Leukocyte Esterase Negative (Negative) 06/08/23 15:58 Urine RBC 0-4 /hpf (0-2) H 06/08/23 15:58 Urine WBC 0-4 /hpf (0-5) H 06/08/23 15:58 Ur Squamous Epith Cells 5-10 /hpf (0-5) H 06/08/23 15:58 Amorphous Sediment Not Reportable 06/08/23 15:58 Urine Bacteria Trace /hpf (NONE) 06/08/23 15:58 Urine Mucus 1+ /hpf 06/08/23 15:58 XR interpretation done by ED provider, pending radiology final review Discharge Plan Discharge Patient Disposition: Placed in Observation Admit Provider: Dante Dugan Clinical Impression: Right upper quadrant abdominal pain, Transaminitis Condition: Stable Coding Level of Care Code ED Cutter Operator Asbestos Shingle for Chg Fwd Documented by User: Nabil Valentino DO 06/08/23 19:57 HPI - Abdominal Pain 2 General: Chief Complaint: Abdominal Pain Stated Complaint: abd pain, nausea Time Seen by Provider: 06/08/23 15:38 PFSH ED 2 PFSH: Medical History Recurrent UTI Vulvodynia Chronic back pain Managed by pain medication by PMD and pain management Anxiety Controlled on p.o. pain medication as needed managed by PMD Chronic cystitis Diagnosed in [address] Christiansen No pertinent past medical history Denies diabetes, asthma, hypertension, seizures, DVT/PE Her primary care provider is Dr. Cooper. Surgical History S/P tubal ligation 06/24/1989--Performed by Dr. Bach at [facility] at time of section. S/P section 06/24/1989--performed by Dr. Bach at [facility] Family History Mother , at age 92 Diabetes Heart disease Stroke Alzheimer disease Sister Lung cancer Father , at age 89 COPD (chronic obstructive pulmonary disease) Denies family history of Colon cancer Ovarian cancer Hyperlipidemia Breast cancer Uterine cancer Thyroid disease Social History Smoking and tobacco/nicotine status: former use of tobacco/nicotine Alcohol intake: never Substance/Drug Use: never Lives independently: Yes Household members: spouse Marital status: Current occupational status: retired Course 2 Vital Signs: Vital signs: Vital Signs Temperature 98.0 F 06/08/23 15:14 Pulse Rate 76 06/08/23 19:53 Respiratory Rate 15 06/08/23 19:53 Blood Pressure 148/73 06/08/23 19:53 Pulse Oximetry 97 06/08/23 19:53 Oxygen Delivery Me thod Room Air 06/08/23 19:53 MDM - Abdominal Pain Medical Decision Making EKG revealed normal sinus rhythm with no ST segment abnormalities. CBC reveals a white blood cell count of 12.5. CMP revealed an AST of 866, ALT 453 and an alk phos of 179. Urinalysis normal. Lipase 40. Patient was given 2 mg of morphine and 4 mg of Zofran IV and she is feeling somewhat better. Right upper quadrant ultrasound is pending. Ultrasound reveals calcified polyps in the gallbladder. No gallbladder wall thickening. No common bile duct dilatation. Spoke with surgery. Surgery gives somewhat nebulous answer regarding the gallbladder polyps, and an outpatient workup. The concern is over liver enzymes being mild to moderately elevated, with no common bile duct dilatation. She will be observed, to watch for worsening or improving transaminitis, MRCP can be scheduled in the morning to ensure no common bile duct obstruction. Spoke with hospitalist. He agrees. Lab Data 06/08/23 16:05 06/08/23 16:05 Labs/Radiology: Radiology Impressions Gallbladder Ultrasound 06/08/23 17:02 IMPRESSION: 1. Multiple echogenic, avascular, nonmobile tubular echogenic gallbladder intraluminal foci, findings likely represent gallbladder polyps measuring maximally up to 1.5 centimeters. Surgical consult is recommended for further management. 2. No gallbladder wall thickening, or pericholecystic fluid. Laboratory Results WBC 12.45 10^3/uL (3.29-11.43) H 06/08/23 16:05 RBC 4.54 10^6/uL (3.85-5.65) 06/08/23 16:05 Hgb 13.30 g/dL (11.27-16.99) 06/08/23 16:05 Hct 40.3 % (36-47) 06/08/23 16:05 MCV 88.8 fl (85-98) 06/08/23 16:05 MCH 29.3 pg (27-33) 06/08/23 16:05 MCHC 33.0 g/dL (30-55) 06/08/23 16:05 RDW 12.4 % (12.1-15.1) 06/08/23 16:05 Plt Count 343 10^3/cmm (157-399) 06/08/23 16:05 MPV 9.2 fL (7.4-10.4) 06/08/23 16:05 Neut % (Auto) 78.6 % 06/08/23 16:05 Lymph % (Auto) 13.7 % 06/08/23 16:05 [place] % (Auto) 7.3 % 06/08/23 16:05 Eos % (Auto) 0.1 % 06/08/23 16:05 Baso % (Auto) 0.1 % 06/08/23 16:05 Neut # (Auto) 9.78 10^3/uL (1.8-7.7) H 06/08/23 16:05 Lymph # (Auto) 1.7 10^3/uL (0.8-4.8) 06/08/23 16:05 [place] # (Auto) 0.9 10^3/uL (0.2-0.9) 06/08/23 16:05 Eos # (Auto) 0.0 10^3/uL (0.0-0.8) 06/08/23 16:05 Baso # (Auto) 0.0 10^3/uL (0.0-0.1) 06/08/23 16:05 Nucleated RBC % (auto) 0 % 06/08/23 16:05 Nucleated RBCs # 0.0 /100WBC 06/08/23 16:05 Sodium 140 mmol/L (136-145) 06/08/23 16:05 Potassium 4.0 mmol/L (3.5-5.1) 06/08/23 16:05 Chloride 100 mmol/L (98-107) 06/08/23 16:05 Carbon Dioxide 28 mmol/L (22-29) 06/08/23 16:05 Anion Gap 16.0 (5-19) 06/08/23 16:05 BUN 19 mg/dL (6-20) 06/08/23 16:05 Creatinine 0.7 mg/dL (0.5-0.9) 06/08/23 16:05 GFR Calculation 86.6 mL/min (90-130) L 06/08/23 16:05 Glucose 115 mg/dL (65-115) 06/08/23 16:05 Calculated Osmolality 293 mOsm/kg (285-295) 06/08/23 16:05 Calcium 9.0 mg/dL (8.5-10.5) 06/08/23 16:05 Total Bilirubin 1.4 mg/dL (0.15-1.2) H 06/08/23 16:05 AST 866 U/L (0-32) H 06/08/23 16:05 ALT 453 U/L (0-33) H 06/08/23 16:05 Alkaline Phosphatase 179 U/L (35-105) H 06/08/23 16:05 Total Protein 7.4 g/dL (6.6-8.7) 06/08/23 16:05 Albumin 4.0 g/dL (3.5-5.2) 06/08/23 16:05 Globulin 3.4 g/dL (1.3-4.6) 06/08/23 16:05 Lipase 40 U/L (13-60) 06/08/23 16:05 Urine Color Lena (Yellow) 06/08/23 15:58 Urine Appearance Clear (CLEAR) 06/08/23 15:58 Urine pH 5 (5-7) 06/08/23 15:58 Ur Specific [place] 1.020 (1.005-1.030) 06/08/23 15:58 Urine Protein Neg (Negative) 06/08/23 15:58 Urine Glucose (UA) Norm (Normal) 06/08/23 15:58 Urine Ketones Negative (Negative) 06/08/23 15:58 Urine Blood 2+ (Negative) H 06/08/23 15:58 Urine Nitrate Negative (Negative) 06/08/23 15:58 Urine Bilirubin Neg (Negative) 06/08/23 15:58 Urine Urobilinogen 4 mg/dL (Negative) H 06/08/23 15:58 Ur Leukocyte Esterase Negative (Negative) 06/08/23 15:58 Urine RBC 0-4 /hpf (0-2) H 06/08/23 15:58 Urine WBC 0-4 /hpf (0-5) H 06/08/23 15:58 Ur Squamous Epith Cells 5-10 /hpf (0-5) H 06/08/23 15:58 Amorphous Sediment Not Reportable 06/08/23 15:58 Urine Bacteria Trace /hpf (NONE) 06/08/23 15:58 Urine Mucus 1+ /hpf 06/08/23 15:58 Discharge Plan Discharge Patient Disposition: Placed in Observation Admit Provider: Dante Dugan Clinical Impression: Right upper quadrant abdominal pain, Transaminitis Condition: Stable Coding Level of Care Code ED Cutter Operator Asbestos Shingle for Rafia De Luna
--- NOTE | 2023-06-08 19:46 | P.HP_ITS ---
Providers/Chief Complaint 2 Primary Care Provider: Misbah Cooper DO Chief Complaint: abd pain, nausea History of Present Illness Dori Rodríguez is a 57 year old female with a past medical history significant for chronic cystitis, anxiety, and chronic back pain who presents to the emergency department with right epigastric and right upper quadrant pain with onset at 11 AM. She endorses associated nausea and fatigue for the past 3 days. Denies fevers or chills. She reports she did not eat breakfast but this is quite typical for her. She states she had not eaten this morning prior to symptom onset. She has eaten some since symptom onset. She did receive IV pain medicine prior to my evaluation which she reports improved pain. Of note, patient reports this is around the fourth occurrence of abdominal pain she has had since February 2023. She has been evaluated in the emergency department multiple times for similar complaint. She states that today symptoms are similar to prior abdominal pains. She has multiple prior imaging studies. CT abdomen pelvis and September 2019 showed no acute findings. Abdominal ultrasound in September 2019 showed mildly diffuse fatty liver, small gallbladder polyp unchanged since 2014 study, and a left renal cyst. She had a CT abdomen pelvis in February 2022 which showed cholelithiasis. Gallbladder ultrasound in February 2022 showed cholelithiasis and echogenic bile in the gallbladder. HIDA scan in March 2022 was normal with normal gallbladder ejection fraction. She was more recently seen in the emergency department February [address] abdomen pelvis scan showed no acute findings. Cholelithiasis was again noted. She presented to the ED in early April [address] abdomen pelvis showed no acute findings. In the ED, patient was found leukocytosis, hyperbilirubinemia, and transaminitis. Gallbladder ultrasound showed no gallbladder wall thickening or [place] cholecystic fluid. There were multiple findings suggestive of gallbladder polyps measuring up to 1.5 cm. Review of Systems 2 Narrative: A complete review of systems was obtained and is negative except as stated in HPI. Medications/Allergies Home Medications Medication Instructions Recorded Confirmed Last Taken Type lansoprazole 30 mg capsule,delayed 30 mg PO DAILY 12/21/19 05/08/23 Unknown History release multivitamin 1 tab PO DAILY 02/20/23 05/08/23 Unknown History probiotic PO DAILY 02/20/23 05/08/23 Unknown History albuterol sulfate 90 mcg/actuation 2 inh inhalation Q6H PRN 03/03/23 05/08/23 Unknown History breath activated powder inhaler ospemifene 60 mg tablet (Osphena) 60 mg PO DAILY vaginal dryness #30 04/03/23 05/08/23 Unknown Rx tabs tizanidine 2 mg capsule 2 mg PO TID PRN muscle spasticity 05/06/23 05/08/23 Unknown Rx #20 caps Allergies Allergy/AdvReac Type Severity Reaction Status Date / Time doxycycline Allergy ALGY-Redness Verified 06/08/23 15:14 of Skin nitrofurantoin Allergy CAUSES Verified 06/08/23 15:14 [From Macrobid] REDNESS AND RASH TO GIRISH AREA Sulfa (Sulfonamide Allergy rash Verified 06/08/23 15:14 Antibiotics) levofloxacin AdvReac Mild ADV-Weaknes Verified 06/08/23 15:14 s prednisone AdvReac Palpitation Verified 06/08/23 15:14 s PFSH Acute 2 PFSH: Medical History (Updated 06/08/23 @ 20:55 by Dante Dugan MD) Gallbladder polyp Overactive bladder Pelvic pain Well woman exam without gynecological exam Vaginal dryness, menopausal Atrophy of vagina Vulvar pruritus Chronic cystitis Diagnosed in [address] Christiansen Recurrent UTI Vulvodynia Chronic back pain Managed by pain medication by PMD and pain management Anxiety Controlled on p.o. pain medication as needed managed by PMD No pertinent past medical history Denies diabetes, asthma, hypertension, seizures, DVT/PE Her primary care provider is Dr. Cooper. Surgical History S/P tubal ligation 06/24/1989--Performed by Dr. Bach at [facility] at time of section. S/P section 06/24/1989--performed by Dr. Bach at [facility] Family History Mother , at age 92 Diabetes Heart disease Stroke Alzheimer disease Sister Lung cancer Father , at age 89 COPD (chronic obstructive pulmonary disease) Denies family history of Colon cancer Ovarian cancer Hyperlipidemia Breast cancer Uterine cancer Thyroid disease Social History Smoking and tobacco/nicotine status: former use of tobacco/nicotine Alcohol intake: never Substance/Drug Use: never Lives independently: Yes Household members: spouse Marital status: Current occupational status: retired Vitals/I&O/Wt Last Vital Signs Temp 98.0 F 06/08/23 15:14 Pulse 69 06/08/23 19:06 Resp 16 06/08/23 19:06 BP 144/64 06/08/23 19:06 Pulse Ox 96 06/08/23 19:06 O2 Del Method Room Air 06/08/23 19:06 Weight last 48 hrs Weight 79.832 kg Physical Exam 2 Narrative: General: Patient is awake. Very pleasant but appears fatigued. Head: Normocephalic. Atraumatic. EOM intact. Neck: No JVD. Cardiovascular: RRR. No gallops. No murmurs. Lungs: Clear to auscultation, no use of accessory muscles, no crackles or wheezes. Skin: No jaundice. No rashes. Abdomen: Hypoactive bowel sounds, abdomen is mildly tender to palpation. No guarding. Rectal: Rectal exam not performed since no symptoms indicated blood loss. Extremities: No cyanosis or clubbing. Musculoskeletal: No swollen or erythematous joints. Neurological: Moves all 4 extremities. No myoclonus. Data 06/08/23 16:05 06/08/23 16:05 A&P Assessment and plan (1) Transaminitis: Associated with hyperbilirubinemia, AST>ALT Admission labs AST 866 ALT 453 alk phos 179 TB 1.4 ALT albumin 4.0 LFTs previously normal on last check on 05/02/2023 R factor 8.1 suggest hepatocellular rather than a cholestatic pathology DILI considered, but unlikely as lansoprazole and tizanidine are very rarely associated with liver injury Normal albumin can suggest acute process rather than chronic Check INR Check GGT due to elevated alk phos Check MERLYN and ASMA Check acute viral hepatitis panel Check D-dimer Check inflammatory markers Ddx broad, further workup pending above results (2) Right upper quadrant abdominal pain: Imaging reviewed Analgesics as needed, no common bile duct dilation noted Proceed with MRCP, n.p.o. at midnight for exam Start gentle IV fluids (3) Gallbladder polyp: Prior imaging reviewed, she has known cholelithiasis and suspected gallbladder polyps Further management pending above workup, she will least need general surgery referral, possibly inpatient consult pending results (4) Chronic back pain: Continue home meds Analgesics as needed Qualifiers: Back pain location: back pain in unspecified location Back pain laterality: unspecified Qualified Code(s): M54.9 - Dorsalgia, unspecified; G89.29 - Other chronic pain (5) Chronic cystitis: Urinalysis reviewed Plan DVT prophylaxis: Lovenox CODE STATUS: Full code Attestations 2 Medical Necessity Statement*: Patient presents with abdominal pain, found to have significant elevation of her liver function enzymes with expected hepatocellular damage (etiology with expected hospitalization not to cross 2 midnights for MRCP imaging, liver function enzymes trending, further workup, and supportive care. Coding Level of Care Code Acute Code for [facility] Fwd Diagnoses Transaminitis R74.01 Right upper quadrant abdominal pain R10.11 Gallbladder polyp K82.4 Chronic back pain, unspecified back location, unspecified back pain laterality M54.9; G89.29 Back pain location: back pain in unspecified location Back pain laterality: unspecified Chronic cystitis N30.20
[2023-06-08] MEDS: dextrose 5%-sod chloride 0.45% 1,000 ML 75 ML IV (21:14)
[2023-06-08 21:30] LABS: INR 1.16 (0.8-1.2)
[2023-06-08 21:33] LABS: D Dimer 0.47 ug/mLFEU (0-0.59)
[2023-06-08 21:53] LABS: Hepatitis A Antibody IgM Non-Reactive (Nonreactive); Hepatitis B Core IgM Non-Reactive (Nonreactive); Hepatitis B Surface Antigen Non-Reactive (Nonreactive); Hepatitis C Virus Antibody Non-Reactive (Nonreactive)
[2023-06-08 22:10] LABS: C Reactive Protein 5.1 mg/L (0.0-4.9); Creatine Phosphokinase 35 U/L (26-192); Gamma Glutamyl Transferase 360 U/L (5-36)
[2023-06-08 22:17] LABS: Procalcitonin 0.29 ng/mL (0-0.5)
[2023-06-08 22:23] LABS: Ferritin 1982 ng/mL (15-150)
[2023-06-09] VITALS: BP 134/73; PULSE 62; TEMP 36.8; O2SAT 97
[2023-06-09 04:00] VITALS: BP 130/68; PULSE 70; TEMP 36.4; O2SAT 98
[2023-06-09] MEDS: ketorolac 30 mg/mL INJ 15 MG IVP (04:59)
[2023-06-09 05:23] LABS: Basophils % 0.4 %; Eosinophils # 0.1 10^3/uL (0.0-0.8); Eosinophils % 1.9 %; Lymphocytes # 1.2 10^3/uL (0.8-4.8); Mean Corpuscular HGB Conc 32.5 g/dL (30-55); Mean Corpuscular Hemoglobin 28.9 pg (27-33); Mean Corpuscular Volume 88.9 fl (85-98); Mean Platelet Volume 9.6 fL (7.4-10.4); Monocytes # 0.6 10^3/uL (0.2-0.9); Neutrophils # 3.34 10^3/uL (1.8-7.7); Neutrophils % 63.5 %; Nucleated Red Blood Cells % 0 %; Platelet Count 333 10^3/cmm (157-399); Red Cell Distribution Width 12.5 % (12.1-15.1); White Blood Count 5.26 10^3/uL (3.29-11.43)
[2023-06-09 05:40] LABS: Albumin Level 3.7 g/dL (3.5-5.2); Alkaline Phosphatase 223 U/L (35-105); Anion Gap 11.7 (5-19); Blood Urea Nitrogen 14 mg/dL (6-20); Carbon Dioxide 27 mmol/L (22-29); Chloride 103 mmol/L (98-107); Globulin 3.1 g/dL (1.3-4.6); Glomerular Filtration Rate 103.4 mL/min (90-130); Glucose 112 mg/dL (65-115); Magnesium 2.3 mg/dL (1.7-2.3); Osmolality Calculated 287 mOsm/kg (285-295); Potassium 3.7 mmol/L (3.5-5.1); Sodium 138 mmol/L (136-145); Total Bilirubin 2.5 mg/dL (0.15-1.2); Total Protein 6.8 g/dL (6.6-8.7)
[2023-06-09 05:53] LABS: Alanine Aminotransferase 1066 U/L (0-33); Aspartate Amino Transferase 887 U/L (0-32)
--- NOTE | 2023-06-09 07:00 | MR_ITS ---
WS: [id number] MRI/MRCP OF THE ABDOMEN WITHOUT GADOLINIUM ENHANCEMENT TECHNIQUE: Coronal T2 Fase BH, Axial T2 Fase BH, Axial T2 FS BH, Zxial 3D Brizuela BH, Axial DWI BH, 2D MRCP Radial BH, 3D MRCP (Resp), and Axial 3D Dyn BH Post sequences. CLINICAL INFORMATION: ruq pain, transaminitis COMPARISON: 06/08/2023 FINDINGS: Cholelithiasis. No gallbladder wall thickening or pericholecystic fluid. Three Calculi in the distal common bile duct. Largest common bile duct calculus measures 4 mm. Common bile duct measures 6 mm. Normal pancreas and pancreatic head. Normal portal vein and splenic vein. A drenal glands are normal. No hydronephrosis in either kidney. Normal caliber upper abdominal aorta. N o other suspicious findings. Impression: 1. Cholelithiasis. No gallbladder wall thickening or pericholecystic fluid. 2. 3. Stones in the distal common bile duct. Common bile duct measures approximately 6 mm in maximum dimension. Recommend ERCP. 3. Pancreas is normal in appearance. No evidence of pancreatic head mass. No dilatation of the pancr eatic duct. 4. Adrenal glands are normal. 5. No hydronephrosis in either kidney. 6. No other acute findings. Notified Dr. Zaragoza at 06/09/2023 9:03 AM.
--- NOTE | 2023-06-09 07:32 | PC.PHAR ---
PT STATES NO LONGER TAKES ANY DAILY MEDS EXCEPT LANSOPRAZOLE 30 MG PT HAS ALBUTEROL HFA RESCUE INHALER AND TIZANIDINE 2 MG FOR NEEDED PURPOSES. 06/09/23
[2023-06-09 07:34] VITALS: BP 150/77; PULSE 57; RESP 16; TEMP 36.3; O2SAT 98
--- NOTE | 2023-06-09 08:46 | PC.CHAP ---
Pastoral Care Encounter/Spiritual Assessment Type of Contact [] Declined wafer machine operator visit [] Patient/Family/Request visit [] Outpatient visit [] Follow-up visit [] Physician referral [] Code/Alert [] Routine visit [] Staff referral [] Actively dying [] Patient sleeping [] Family support [] [x] Out of room [] Palliative care [] [] Receiving care in room [] Pre-surgical visit [] Trauma [] Long length of stay [] ICU visit [] Other: Relational/Emotional Strength [] Patient feels connected with others/family/visitors/staff [] Distress [] Loneliness/isolation [] Abandonment Spirituality of Patient [] Person of [place] [] Attends Quaker of their [place] [] Believes in Prayer [] Reads Bible or Adventist materials [] There are Spiritual issues to be addressed Research Nurse Practitioner Interventions [] Prayer [] Active listening [] Non-anxious presence [] Spiritual/emotional support [] Crisis/trauma care [] Spiritual counseling [] Bereavement support [] Provided bereavement packet [] Provided Bible/devotional materials [] Provided toy/stuffed animal, coloring book to patient or family member [] Provided Communion [] Anointing/Herman [] Salvation [] Completed spiritual assessment [] Other: Impact on Illness or Injury [] Angry [] Fearful [] Anxious [] Often cries [] Exhaustion [] Unable to work [] Unable to attend bahai [] Unable to walk/stand [] Unable to read [] Unable to drive [] Unable to eat/drink [] Unable to sleep [] Unable to be with family [] Patient intubated [] Other: Summary Time spent with patient
[2023-06-09] MEDS: piperacillin-tazobactam 3.375 GM in sodium chloride 0.9% (plus) 50 ML IV (09:39)
[2023-06-09] MEDS: dextrose 5%-sod chloride 0.45% 1,000 ML 75 ML IV (10:21)
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
[2023-06-09 11:43] VITALS: BP 146/64; PULSE 61; RESP 16; TEMP 36.8; O2SAT 97
[2023-06-09 12:35] LABS: Gamma Glutamyl Transferase 375 U/L (5-36); Lipase 39 U/L (13-60)
--- NOTE | 2023-06-09 14:47 | PC.NURSE ---
Patient was transferred to [place] at 12:35. Charge nurse spoke with [facility] Charge nurse to make arangements for patient to be transferred.
[2023-06-09 14:51] VITALS: BP 146/64; PULSE 61; RESP 16; TEMP 36.8; O2SAT 97
[2023-06-12 11:24] LABS: Smooth Muscle Ab Screen NEGATIVE (NEGATIVE)
== END 2023-06-09 12:35 | disposition intermediate care facility (04) ==
LOC: ER 18:07 → MEDSURG 19:48
PROVIDERS: Nurse Practitioner Family; Admitting Provider Internal Medicine; Emergency Provider Emergency Medicine; PCP Electrodiagnostic Medicine; Visit Provider Family Medicine
DX: R74.01 Elevation of levels of liver transaminase levels (principal); R10.11 Right upper quadrant pain; K82.4 Cholesterolosis of gallbladder; M54.9 Dorsalgia, unspecified; G89.29 Other chronic pain; N30.20 Other chronic cystitis without hematuria; F41.9 Anxiety disorder, unspecified; Z87.891 Personal history of nicotine dependence
CPT/HCPCS: 36415; 74181; 76705; 80053; 80074; 81001; 82248; 82550; 82728; 82977; 83516; 83690; 83735; 84100; 84145; 85025; 85378; 85610; 86140; 93005; 96361; 96365; 96375; 99285; G0378; J1885; J2270; J2405; J2543; J7799

== ENCOUNTER 2024-03-26 14:48 | Outpatient (CLI) | payer OTHER, SELFPAY ==
--- NOTE | 2024-03-26 14:52 | MM_ITS ---
WS: [id number] BILATERAL 3D TOMOSYNTHESIS DIGITAL SCREENING MAMMOGRAPHY WITH CAD CLINICAL INFORMATION: SCREENING HISTORY: Screening mammogram. No current complaints. COMPARISON: 03/06/2023 TECHNIQUE: Bilateral CC and MLO views. FINDINGS: The breasts are composed of heterogeneous fibroglandular density tissue, which can limit the detectio n of small underlying mass lesions. No suspicious mass, asymmetry, calcifications, or architectural d istortion. No evidence of malignancy. Incidental punctate and dystrophic calcifications. MM/MM [facility] tomosynthesis [id number] IMPRESSION: DENSITY: The breasts are heterogeneously dense, which may obscure small masses. BI-RADS: 2 - Benign FOLLOW UP: 1 Year Follow-up Recommend return to annual screening mammography.
== END 2024-03-26 14:49 | disposition home or self-care (01) ==
LOC: RAD 14:48
PROVIDERS: PCP Electrodiagnostic Medicine; Visit Provider Obstetrics & Gynecology
DX: Z12.31 Encounter for screening mammogram for malignant neoplasm of breast (principal); R92.333 Mammographic heterogeneous density, bilateral breasts; R92.1 Mammographic calcification found on diagnostic imaging of breast
CPT/HCPCS: 77063; 77067

== ENCOUNTER 2025-02-05 21:06 | Emergency (ER) | payer OTHER, SELFPAY ==
--- OUTSIDE RECORDS SUMMARY | 2023-10-18 04:00 | XMS_ITS ---
Author Organization [facility] Address [address] [place] [address] Care Team Providers Care Ladies' Locker Room Attendant Name Role Phone Misbah Cooper DO Primary Care Provider Unavail able Migration, Provider Unavailable Unavailable REASON FOR VISIT EMR-Carlos Encounters Encounter Location Date Provider Diagnosis Migrated_Facility 0 0 10/18/2023 Provider Migration Plan Of Treatment Medication Medication Name Sig Start Date Stop Date Notes HYDROcodone-Acetaminophen 5-325 MG Tablet Oral 07/15/2023 07/19/2023 Estradiol 0.1 MG/GM Cream Vaginal 07/15/2023 02/10/2024 Cefuroxime 500 MG Oral Tablet 01/22/20232023 *Reorder from [facility] for eRx and Interaction Alerts* Sulfamethoxazole-Trimethopri m 800-160 MG Tablet Oral 05/14/2023 05/21/2023 Solifenacin Succinate 10 MG Tablet Oral 04/16/2023 06/15/2023 Amoxicillin 500 MG / Clavulanate 125 MG Oral Tablet 05/14/2023 05/19/2023 *Reorder from [facility] for eRx and Interaction Alerts* Amitriptyline Hydrochloride 10 MG Oral Tablet 01/22/2023 04/22/2023 *Reorder from [facility] for eRx and Interaction Alerts* Amoxicillin 500 MG Capsule Oral 01/22/2023 Next Appt Details Provider Name:Juana Henley, 06/22/2025 11:00:00 AM, [address], [address], [place], [address], Progress Notes * Dori RODRÍGUEZDOB: [birth year] (59 yo F)Acc No.[id number]:10/18/2023 Patient: Dori NAYAK :1965 A ge:57 Y S ex:Female Address:[address] [place] [id number] * Refills Stop Amoxicillin Capsule, 500 MG, Oral Stop Estradiol Cream, 0.1 MG/GM, Vaginal Stop HYDROcodone-Acetaminophen Tablet, 5-325 MG, Oral Stop Solifenacin Succinate Tablet, 10 MG, Oral Stop Sulfamethoxazole-Trimethoprim Tablet, 800-160 MG, Oral Stop Cefuroxime 500 MG Oral Tablet Stop Amitriptyline Hydrochloride 10 MG Oral Tablet Stop Amoxicillin 500 MG / Clavulanate 125 MG Oral Tablet Subjective: * Chief Complaints: * E MR-Carlos * * Date:
--- OUTSIDE RECORDS SUMMARY | 2023-10-19 04:00 | XMS_ITS ---
Author Organization [facility] Address [address] [place] [address] Care Team Providers Care [employer] Teacher Name Role Phone Misbah Cooper DO Primary Care Provider Unavail able Migration, Provider Unavailable Unavailable Allergies Allergen (clinical drug ingredient) Drug/Non Drug Allergy documented on EMR Reaction Allergy Type Onset Date Status Levaquin Unknown Drug Allergy 12/25/2022 active nitrofurantoin Nitrofurantoin Unknown Drug Allergy 023 active doxycycline Doxycycline Unknown Drug Allergy 12/10/2022 ac tive Substance with sulfonamide structure and antibacterial mechanism of action (substance) Sulfa Antibiotics Unknown Drug Allergy 12/11/2022 active REASON FOR VISIT EMR-Carlos Medications Medication SIG (Take, Route, Frequency, Duration) Notes Start Date End Date Status Dicyclomine Hydrochloride 20 MG Oral Tablet *Reorder from [facility] [place] for eRx and Interaction Alerts* 01/22/2023 02/01/2023 Active diphenhydramine hydrochloride 25 MG Oral Capsule [Benadryl] ORAL *Reorder from [facility] [place] for eRx and Interaction Alerts* 12/10/2022 Active lansoprazole 30 MG Delayed Release Oral Capsule ORAL *Reorder from [facility] [place] for eRx and Interaction Alerts* 12/10/2022 Active tizanidine 2 MG Oral Tablet *[facility] and Interaction Alerts* 05/14/2023 05/21/2023 Active Social History Social History Additional Details Category Social Info Options Details Migrated Social History Migrated Social History History of tobacco use : , Smoking Status : Former tobacco user Encounters Encounter Location Date Provider Diagnosis Migrated_Facility 0 0 10/19/2023 Provider Migration Plan Of Treatment Next Appt Details Provider Name:Juana Burt Dino Ching, 06/22/2025 11:00:00 AM, [address], [address], [place], [address], Progress Notes * Dori RODRÍGUEZDOB: [birth year] (59 yo F)Acc No.[id number]:10/19/2023 Patient: Dori NAYAK :1965 A ge:57 Y S ex:Female Address:[address] [place] [id number] Subjective: * Chief Complaints: * E MR-Carlos * Family History: M other: PRN - Mother: :: Diabetes,,known absent , :: Hypertension,,known absent . * Social History: M igrated Social History: M igrated Social History: History of tobacco use : , Smoking Status : Former tobacco user. * Medications: T akingDicyclomine Hydrochloride 20 MG Oral Tablet , stop date 02/01/2023, Notes to Pharmacist: *Reorder [facility] for [facility] and Interaction Alerts*tizanidine 2 MG Oral Tablet , stop date 05/21/2023, Notes to Pharmacist: *Reorder from [facility] for [facility] and Interaction Alerts*lansoprazole 30 MG Delayed Release Oral Capsule ORAL , Notes to Pharmacist: *Reorder from [facility] for eRx and Interaction Alerts*diphenhydramine hydrochloride 25 MG Oral Capsule [Benadryl] ORAL , Notes to Pharmacist: *Reorder from [facility] for eRx and Interaction Alerts*Taking Dicyclomine Hydrochloride 20 MG Oral Tablet , stop date 02/01/2023, Notes to Pharmacist: *Reorder from [facility] for [facility]Rx and Interaction Alerts*Taking tizanidine 2 MG Oral Tablet , stop date 05/21/2023, Notes to Pharmacist: *Reorder from [facility] for eRx and Interaction Alerts*Taking lansoprazole 30 MG Delayed Release Oral Capsule ORAL , Notes to Pharmacist: *Reorder from [facility] for eRx and Interaction Alerts*Taking diphenhydramine hydrochloride 25 MG Oral Capsule [Benadryl] ORAL , Notes to Pharmacist: *Reorder from [facility] [place] for eRx and Interaction Alerts* * Allergies: S ulfa Antibiotics : Allergy - Onset Date 12/11/2022Levaquin: Allergy - Onset Date 12/25/2022Nitrofurantoin: Allergy - Onset Date 12/10/2022oxycycline: Allergy - Onset Date 12/10/2022 * * Date:
--- OUTSIDE RECORDS SUMMARY | 2024-04-15 09:00 | XMS_ITS ---
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 Name Role Phone Misbah Cooper DO Primary Care Provider Unavail able Juana Zazueta Unavailable REASON FOR VISIT 9m f/u for ua and pvr,Source Provider:PATRICK SINGH Problems Problem Type SNOMED Code ICD Code Onset Dates Problem Status W/U Status Risk Notes Problem Pelvic and perineal pain (302511056) Suprapubic pressure (R10.2) Active confirmed Problem Atrophy of vagina (332250151) Vaginal atrophy (N95.2) Active confirmed Problem Flank pain (350736550) Flank pain (R10.9) Active confirmed Problem Recurrent urinary tract infection (875687438) Recurrent UTI (N39.0) Active confirmed Encounters Encounter Location Date Provider Diagnosis [facility] [address] [place] [address] [address] [place] [address] 04/15/2024 Juana Zazueta Flank pain R10.9 ; Suprapubic pressure R10.2 ; Vaginal atrophy N95.2 and Recurrent UTI N39.0 Assessments Encounter Date Diagnosis (ICD Code) Assessment Notes Treatment Notes Treatment Clinical Notes Section Notes 04/15/2024 Flank pain (ICD-10 - R10.9) Improved after lap arsenio and ERCP 04/15/2024 Suprapubic pressure (ICD-10 - R10.2) 04/15/2024 Vaginal atrophy (ICD-10 - N95.2) Use replens as a supplement instead of vaginal estrogen. 04/15/2024 Recurrent UTI (ICD-10 - N39.0) If you believe you have a UTI, please come to the office and give urine specimen If you are taking medication for this, please finish the prescription, unless otherwise told Recurrent Urinary Tract Infections (UTIs): Patient Information Overview: Recurrent UTIs are defined as having two or more infections within six months or three or more infections within a year. They are more common in women but can affect anyone. Recurrent UTIs can significantly impact quality of life and may require ongoing management. Symptoms: Frequent urination Urgent need to urinate Burning sensation during urination Cloudy or strong-smelling urine Blood in the urine (hematuria) Pelvic pain or discomfort Causes: Anatomical Factors: Excello urethra in women, structural abnormalities in the urinary tract. Sexual Activity: Increases the risk of introducing bacteria into the urinary tract. Menopause: Decreased estrogen levels can lead to changes in the urinary tract that increase susceptibility to infections. Incomplete Bladder Emptying: Conditions like bladder prolapse or neurological disorders. Previous UTIs: History of UTIs can increase the risk of recurrence. Diagnosis: Urinalysis: To detect bacteria, blood, or pus in the urine. Urine Culture: To identify the specific bacteria causing the infection. Imaging Tests: Ultrasound or CT scans to check for abnormalities in the urinary tract. Cystoscopy: A procedure using a scope to view the inside of the bladder. Treatment: Antibiotics: Short or long-term antibiotic therapy to treat and prevent infections. Prophylactic Antibiotics: Low-dose antibiotics taken regularly to prevent infections. Post-Coital Antibiotics: Single-dose antibiotics taken after sexual activity. Non-Antibiotic Prophylaxis: Cranberry Products: May help prevent bacteria from adhering to the bladder wall. D-Mannose: A sugar that can prevent certain bacteria from sticking to the urinary tract. Probiotics: To maintain a healthy balance of bacteria in the urinary tract. Topical Estrogen: For postmenopausal women to reduce the risk of infections. Prevention: Hydration: Drink plenty of fluids to flush out bacteria. Hygiene: Wipe from front to back after using the toilet to prevent bacteria from spreading. Urinate Frequently: Avoid holding urine for long periods. Post-Coital Hygiene: Urinate after sexual activity to flush out bacteria. Avoid Irritants: Avoid using irritating feminine products like douches and powders. Patient Education: Understanding the Condition: Educate patients about the causes and risk factors of recurrent UTIs. Adherence to Treatment: Emphasize the importance of completing antibiotic courses and following preventive measures. Lifestyle Modifications: Encourage changes in diet, hydration, and hygiene practices to reduce the risk of recurrence. Monitoring Symptoms: Keep a diary of symptoms and triggers to help manage the condition effectively. When to Seek Medical Attention: Persistent or worsening symptoms despite treatment. Signs of a severe infection, such as fever, chills, or back pain. Plan Of Treatment Treatment Notes Assessment Notes Flank pain Improved after lap c hole and ERCP Vaginal atrophy Use replens as a sup plement instead of vaginal estrogen. Recurrent UTI If you believe you have a UTI, please come to the office and give urine specimen If you are taking medication for this, please finish the prescription, unless otherwise told Recurrent Urinary Tract Infections (UTIs): Patient Information Overview: Recurrent UTIs are defined as having two or more infections within six months or three or more infections within a year. They are more common in women but can affect anyone. Recurrent UTIs can significantly impact quality of life and may require ongoing management. Symptoms: Frequent urination Urgent need to urinate Burning sensation during urination Cloudy or strong-smelling urine Blood in the urine (hematuria) Pelvic pain or discomfort Causes: Anatomical Factors: Excello urethra in women, structural abnormalities in the urinary tract. Sexual Activity: Increases the risk of introducing bacteria into the urinary tract. Menopause: Decreased estrogen levels can lead to changes in the urinary tract that increase susceptibility to infections. Incomplete Bladder Emptying: Conditions like bladder prolapse or neurological disorders. Previous UTIs: History of UTIs can increase the risk of recurrence. Diagnosis: Urinalysis: To detect bacteria, blood, or pus in the urine. Urine Culture: To identify the specific bacteria causing the infection. Imaging Tests: Ultrasound or CT scans to check for abnormalities in the urinary tract. Cystoscopy: A procedure using a scope to view the inside of the bladder. Treatment: Antibiotics: Short or long-term antibiotic therapy to treat and prevent infections. Prophylactic Antibiotics: Low-dose antibiotics taken regularly to prevent infections. Post-Coital Antibiotics: Single-dose antibiotics taken after sexual activity. Non-Antibiotic Prophylaxis: Cranberry Products: May help prevent bacteria from adhering to the bladder wall. D-Mannose: A sugar that can prevent certain bacteria from sticking to the urinary tract. Probiotics: To maintain a healthy balance of bacteria in the urinary tract. Topical Estrogen: For postmenopausal women to reduce the risk of infections. Prevention: Hydration: Drink plenty of fluids to flush out bacteria. Hygiene: Wipe from front to back after using the toilet to prevent bacteria from spreading. Urinate Frequently: Avoid holding urine for long periods. Post-Coital Hygiene: Urinate after sexual activity to flush out bacteria. Avoid Irritants: Avoid using irritating feminine products like douches and powders. Patient Education: Understanding the Condition: Educate patients about the causes and risk factors of recurrent UTIs. Adherence to Treatment: Emphasize the importance of completing antibiotic courses and following preventive measures. Lifestyle Modifications: Encourage changes in diet, hydration, and hygiene practices to reduce the risk of recurrence. Monitoring Symptoms: Keep a diary of symptoms and triggers to help manage the condition effectively. When to Seek Medical Attention: Persistent or worsening symptoms despite treatment. Signs of a severe infection, such as fever, chills, or back pain. Next Appt Details Provider Name:Juana Henley, 06/22/2025 11:00:00 AM, [address] [facility], [place] [address], [place], [address], History and Physical Notes * HPI (History of Present Illness) Category Sub-Category Detail Notes Category Not es Provider Note 58-year-old female presents to clinic for follow-up Last seen June 2023 Right low back/flank pain Pain improved after cholecystectomy and ERCP Cystoscopy November 2022 within normal limits Contrasted CTs in summer 2022 Trialed on tizanidine from ER, may have helped a little, sometimes takes ibuprofen Frequent episodes of suprapubic pressure, failed Myrbetriq and Vesicare Knows triggers to be tomatoes, chocolate, citrus Former patient of Dr. Christiansen for frequent UTI Vaginal estrogen, but stopped due to abnormal bleeding Progress Notes * Marisa RODRÍGUEZedgarDOB: [birth year] (59 yo F)Acc No.[id number]:04/15/2024 Progress Notes Patient: Dori Jacome Provider: HOLLY aGrcia :1965 A ge:58 Y S ex:Female Date:04/15/2024 Address:[address] [place], [place] [id number] Pcp:Misbah Cooper DO Subjective: * Chief Complaints: * 9 m f/u for ua and pvr,Source Provider:PATRICK SINGH * HPI: Josef cox Note: 58-year-old female presents to clinic for follow-up Last seen June 2023 Right low back/flank pain Pain improved after cholecystectomy and ERCP Cystoscopy November 2022 within normal limits Contrasted CTs in summer 2022 Trialed on tizanidine from ER, may have helped a little, sometimes takes ibuprofen Frequent episodes of suprapubic pressure, failed Myrbetriq and Vesicare Knows triggers to be tomatoes, chocolate, citrus Former patient of Dr. Christiansen for frequent UTI Vaginal estrogen, but stopped due to abnormal bleeding. Assessment: * Assessment: 1. F lank pain - R10.9 (Primary) 2 . S uprapubic pressure - R10.2 ? 3 . V aginal atrophy - N95.2 4 . R ecurrent UTI - N39.0 ? Plan: * Treatment: 2. V aginal atrophy Notes: Use replens as a supplement instead of vaginal estrogen. 3. R ecurrent UTI Notes: If you believe you have a UTI, please come to the office and give urine specimen If you are taking medication for this, please finish the prescription, unless otherwise told Recurrent Urinary Tract Infections (UTIs): Patient Information Overview: Recurrent UTIs are defined as having two or more infections within six months or three or more infections within a year. They are more common in women but can affect anyone. Recurrent UTIs can significantly impact quality of life and may require ongoing management. Symptoms: Frequent urination Urgent need to urinate Burning sensation during urination Cloudy or strong-smelling urine Blood in the urine (hematuria) Pelvic pain or discomfort Causes: Anatomical Factors: Excello urethra in women, structural abnormalities in the urinary tract. Sexual Activity: Increases the risk of introducing bacteria into the urinary tract. Menopause: Decreased estrogen levels can lead to changes in the urinary tract that increase susceptibility to infections. Incomplete Bladder Emptying: Conditions like bladder prolapse or neurological disorders. Previous UTIs: History of UTIs can increase the risk of recurrence. Diagnosis: Urinalysis: To detect bacteria, blood, or pus in the urine. Urine Culture: To identify the specific bacteria causing the infection. Imaging Tests: Ultrasound or CT scans to check for abnormalities in the urinary tract. Cystoscopy: A procedure using a scope to view the inside of the bladder. Treatment: Antibiotics: Short or long-term antibiotic therapy to treat and prevent infections. Prophylactic Antibiotics: Low-dose antibiotics taken regularly to prevent infections. Post-Coital Antibiotics: Single-dose antibiotics taken after sexual activity. Non-Antibiotic Prophylaxis: Cranberry Products: May help prevent bacteria from adhering to the bladder wall. D-Mannose: A sugar that can prevent certain bacteria from sticking to the urinary tract. Probiotics: To maintain a healthy balance of bacteria in the urinary tract. Topical Estrogen: For postmenopausal women to reduce the risk of infections. Prevention: Hydration: Drink plenty of fluids to flush out bacteria. Hygiene: Wipe from front to back after using the toilet to prevent bacteria from spreading. Urinate Frequently: Avoid holding urine for long periods. Post-Coital Hygiene: Urinate after sexual activity to flush out bacteria. Avoid Irritants: Avoid using irritating feminine products like douches and powders. Patient Education: Understanding the Condition: Educate patients about the causes and risk factors of recurrent UTIs. Adherence to Treatment: Emphasize the importance of completing antibiotic courses and following preventive measures. Lifestyle Modifications: Encourage changes in diet, hydration, and hygiene practices to reduce the risk of recurrence. Monitoring Symptoms: Keep a diary of symptoms and triggers to help manage the condition effectively. When to Seek Medical Attention: Persistent or worsening symptoms despite treatment. Signs of a severe infection, such as fever, chills, or back pain. Billing Information: * Procedure Codes: * Electronic signature of HOLLY Ojeda on 02/05/2025 at 09:11 PM CDT Sign off status: Pending * Provider: HOLLY Garcia Date: 06/16/2023 Generated for Mellisa barros/Angel/Michael on: 09:11 PM CDT
[2025-02-05 21:12] VITALS: BP 171/76; PULSE 81; RESP 16; TEMP 36.4; O2SAT 100; BMI 34.9
--- OUTSIDE RECORDS SUMMARY | 2025-02-05 21:12 | XMS_ITS | Data Portability ---
Author Organization [facility], [facility], [facility] Address [address] [address] Care Team Providers Care Freight Representative Name Role Phone HA FINLEY Primary Care Provider Unavailabl e Assessment Encounter Date Assessment Date Assessment LastModified by Organization Details LastModified Time 12/01/2024 12/01/2024 Document scribed by Buzz Quiroz [employer]. I was present during interview and exam. I have reviewed and agree with above documentation . Dr. Ha Finley. [email or web address] Not available 12/01/2024 16:24:32 02/01/2025 02/01/2025 Document scribed by Buzz Quiroz [employer]. I was present during interview and exam. I have reviewed and agree with above documentation . Dr. Ha Finley. [email or web address] Not available 02/01/2025 14:36:08 Plan of Treatment Reminders Order Date Submit Date Provider Last Modified By Organization Details Last Modified Time Details Appointments None recorded. Lab None recorded. Referral None recorded. Procedures arthrocente sis, aspiration and/or injection, major joint or bursa (PROC) 2024 025 asurface [facility], [address] [place] [address], [facility] [address], [address], 13:04:48 arthrocente sis, aspiration and/or injection, major joint or bursa (PROC) 2024 025 [id number] [facility], [address] [place] [address] Perez, [address], [place], [address], 04:01:34 Surgeries None recorded. Imaging None recorded. Medication Orders Carafate 1 gram tablet 2024 025 [email or web address] [facility] 15, [address], [place], [address], 15:06:39 ondansetron 4 mg disintegrat ing tablet 2024 [facility] 15, [address], [place], [address], 13:08:19 meclizine 25 mg tablet 2024 [facility] 15, [address], [place], [address], 13:08:20 Kenalog 40 mg/mL suspension for injection 2024 025 [email or web address] Not available 14:15:37 Kenalog 40 mg/mL suspension for injection 2024 025 [email or web address] Not available 14:15:37 meloxicam 7.5 mg tablet 2024 [facility] 15, [address], [place], [address], 11:42:46 Patient TargetsNo targets recorded. Patient InstructionsNo instructions recorded. Reason for Referral None Reported. Results Created Date Observation Date Name Description Value Unit Range Abnormal Flag Note LastModifiedBy Organization Detail LastModifiedTime 09/25/1909/24/2024 CBC WBC 6.4 x10 4.0-10 .5 Not Available [facility] [address] [facility] [address], [place], [address], 09/24/2024 09:20:48 09/25/1909/24/2024 CBC RBC 4.67 x10 3.50-5 .50 Not Available [facility] [address] [facility] 1, [place], [address], 09/24/2024 09:20:48 09/25/1909/24/2024 CBC HGB 13.3 g/dL 12.0-1 6.0 Not Available [facility] [address] [facility] [address] [facility] 1, [place], [address], 09/24/2024 09:20:48 09/25/1909/24/2024 CBC HCT 41.3 % 37.0-4 7.0 Not Available [facility] [address] [facility] 1, [place], [address], 09/24/2024 09:20:48 09/25/1909/24/2024 CBC MCV 88.5 fL 80.0-9 9.9 Not Available [facility] [address] [facility] [address] [facility] 1, [place], [address], 09/24/2024 09:20:48 09/25/1909/24/2024 CBC MCH 28.5 pg 27.0-3 2.0 Not Available [facility] [address] [facility] 1, [place], [address], 09/24/2024 09:20:48 09/25/1909/24/2024 CBC MCHC 32.3 g/dL 32.0-3 6.0 Not Available [facility] [address] [facility] 1, [place], [address], 09/24/2024 09:20:48 09/25/1909/24/2024 CBC RDW 13.9 % 11.5-1 4.5 Not Available [facility] [address] [facility] [address] [facility] 1, [place], [address], 09/24/2024 09:20:48 09/25/19 25 09/24/2024 CBC plt 325.4 x10 140.0- 451.0 Not Available [facility] [address] [facility] 1, [place], [address], 09/24/2024 09:20:48 09/25/19 25 09/24/2024 CBC lymphocytes % 36.6 % 20.0-5 0.0 Not Available [facility] [address] [facility] 1, [place], [address], 09/24/2024 09:20:48 09/25/19 25 09/24/2024 CBC granulcytes % 54.0 % 30.0-7 0.0 Not Available [facility] [address] [facility] 1, [place], [address], 09/24/2024 09:20:48 09/25/19 25 09/24/2024 CBC monocytes % 5.7 % 2.0-16 .0 Not Available [facility] [address] [address], [place], [address], 09/24/2024 09:20:48 09/25/19 25 09/24/2024 CBC granulcytes# 3.5 x10 Not Ammy ilable [facility] [address] [facility] 1, [place], [address], 09/24/2024 09:20:48 09/25/19 25 09/24/2024 CBC lymphocytes # 2.4 x10 Not Available [facility] [address] [address], [place], [address], 09/24/2024 09:20:48 09/25/19 25 09/24/2024 CBC monocytes # 0.4 x10 Not Avai lable [facility] [address] [address], [place], [address], 09/24/2024 09:20:48 09/25/1909/24/2024 HBA1C hemaglobin A1C 5.6 4.2-6. 5 Not Available [facility] [address] [place] [address], [place], [address], 09/24/2024 09:43:09 09/25/1909/25/2024 LIPID PANEL , STAND BALDEV cholesterol, total 171 mg/dL <200 normal Not Available [address] [address] [place], [address], 09/25/2024 07:52:11 09/25/1909/25/2024 LIPID PANEL , STAND BALDEV HDL cholesterol 61 mg/dL > or = 50 normal Not Available [facility] [address] [address] [place], [address], 09/25/2024 07:52:11 09/25/19 25 09/25/2024 LIPID PANEL , STAND BALDEV triglyceride s 73 mg/dL <150 normal Not Available [address] [address] [place], [address], 09/25/2024 07:52:11 09/25/1909/25/2024 LIPID PANEL , STAND BALDEV LDL-choleste rol 94 mg/dL _(melanie c) normal Refer ence range : <100 Luis able range <100 mg/dL for prima ry preve ntion ; <70 mg/dL for patie nts with CHD or diabe tic patie nts with > or = 2 CHD risk facto rs. LDL-C is now calcu lated using the Alexandrea n-Hop neo da silva n, which is a valid ated novel lisette munson than the Fried mary alice equat ion in the estim ation of LDL-C . Alexandrea muniz SS et al. GABRIELE. 2013; 310(1 9): 2061- 2068 (http ://ed ucati on.Qu estDi Telos Entertainmentos tics. com/f aq/FA Q164) Not Available [address] [address] [place], [address], 09/25/2024 07:52:11 09/25/1909/25/2024 LIPID PANEL , STAND BALDEV chol/HDLC ratio 2.8 (calc ) <5.0 normal Not Available [address] [address] [place], [address], 09/25/2024 07:52:11 09/25/1909/25/2024 LIPID PANEL , STAND BALDEV non HDL cholesterol 110 mg/dL _(melanie c) <130 normal For patie nts with diabe barbara plus 1 major ASCVD risk facto r, treat ing to a non-H DL-C goal of <100 mg/dL (LDL- C of <70 mg/dL ) is consi dered a thera peuti c optio n. Not Available [address], [address], 09/25/2024 07:52:11 09/25/1909/25/2024 COMPR EHENS TANA METAB OLIC PANEL glucose 101 mg/dL 65-99 high Fasti ng refer ence inter angel For someo ne witho ut known diabe barbara, a gluco se value betwe en 100 and 125 mg/dL is consi stent with predi abete s and shoul d be confi rmed with a follo w-up test. Not Available [address] [address] [place], [address], 09/25/2024 07:52:12 09/25/1909/25/2024 COMPR EHENS TANA METAB OLIC PANEL urea nitrogen (BUN) 21 mg/dL 7-25 normal Not Available [address] [address] [place], [address], 09/25/2024 07:52:12 09/25/1909/25/2024 COMPR EHENS TANA METAB OLIC PANEL creatinine 0.76 mg/dL 0.50-1 .03 normal Not Available [address], [address], 09/25/2024 07:52:12 09/25/19 25 09/25/2024 COMPR EHENS TANA METAB OLIC PANEL eGFR 91 mL/mi n/1.7 3m2 > or = 60 normal Not Available [address], [address], 09/25/2024 07:52:12 09/25/19 25 09/25/2024 COMPR EHENS TANA METAB OLIC PANEL BUN/creatini ne ratio SEE NOTE: (calc ) 6-22 Not Repor peter: BUN and Creat inine are withi n refer ence range . Not Available [address], [address], 09/25/2024 07:52:12 09/25/19 25 09/25/2024 COMPR EHENS TANA METAB OLIC PANEL sodium 142 mmol/ L 135-14 6 normal Not Available [address], [address], 09/25/2024 07:52:12 09/25/19 25 09/25/2024 COMPR EHENS TANA METAB OLIC PANEL potassium 4.4 mmol/ L 3.5-5. 3 normal Not Available [address], [address], 09/25/2024 07:52:12 09/25/19 25 09/25/2024 COMPR EHENS TANA METAB OLIC PANEL chloride 104 mmol/ L 98-110 normal Not Available [address], [address], 09/25/2024 07:52:12 09/25/19 25 09/25/2024 COMPR EHENS TANA METAB OLIC PANEL carbon dioxide 30 mmol/ L 20-32 normal Not Available [address], [address], 09/25/2024 07:52:12 09/25/1909/25/2024 COMPR EHENS TANA METAB OLIC PANEL calcium 9.5 mg/dL 8.6-10 .4 normal Not Available [address], [address], 09/25/2024 07:52:12 09/25/1909/25/2024 COMPR EHENS TANA METAB OLIC PANEL protein, total 6.9 g/dL 6.1-8. 1 normal Not Available [address], [address], 09/25/2024 07:52:12 09/25/19 25 09/25/2024 COMPR EHENS TANA METAB OLIC PANEL albumin 4.3 g/dL 3.6-5. 1 normal Not Available [address], [address], 09/25/2024 07:52:12 09/25/19 25 09/25/2024 COMPR EHENS TANA METAB OLIC PANEL globulin 2.6 g/dL_ (calc ) 1.9-3. 7 normal Not Available [address], [address], 09/25/2024 07:52:12 09/25/1909/25/2024 COMPR EHENS TANA METAB OLIC PANEL albumin/glob ulin ratio 1.7 (calc ) 1.0-2. 5 normal Not Available [address], [address], 09/25/2024 07:52:12 09/25/19 25 09/25/2024 COMPR EHENS TANA METAB OLIC PANEL bilirubin, total 0.3 mg/dL 0.2-1. 2 normal Not Available [address], [address], 09/25/2024 07:52:12 09/25/1909/25/2024 COMPR EHENS TANA METAB OLIC PANEL alkaline phosphatase 95 U/L 37-153 normal Not Available [address] [address] [place], [address], 09/25/2024 07:52:12 09/25/1909/25/2024 COMPR EHENS TANA METAB OLIC PANEL AST 13 U/L 10-35 normal Not Available [address] [address] [place], [address], 09/25/2024 07:52:12 09/25/1909/25/2024 COMPR EHENS TANA METAB OLIC PANEL ALT 13 U/L 6-29 normal Not Available [address], [address], 09/25/2024 07:52:12 09/25/1909/25/2024 TSH TSH 2.09 mIU/L 0.40-4 .50 normal Not Available [address], [address], 09/25/2024 07:52:13 Result Notes None recorded. Problems Name Problem SNOMED Code Status Onset Date Resolution Date Notes Provider Name and Address Organization Details Recorded Time Ligation of left fallopia n tube Completed 198907/20/2024 Tubaliga tion; Date: 05/14/19 10:09AM by Mayela Jaquez, Office Visit; Promoted ; acuity set as *; Kita perez [employer] 5 11:17:34 Ovarian cyst NOS Completed 200207/20/2024 Ovarian Cysts; bilat.; Date: 05/14/19 10:09AM by Mayela Jaquez, Office Visit; Promoted ; acuity set as *; Kita perez [facility] 5 11:19:06 Kidney stone 22875542 Completed 200207/20/2024 Renal Stones; Date: 2002; 05/14/19 10:09AM by Mayela Jaquez, Office Visit; Promoted ; acuity set as *; Kita perez [facility] 5 11:17:28 Pain of sacroili ac joint 887545905 Active 2022 Kita perez [facility] 5 11:20:20 Vulvodyn ia 434159114 Active 2022 Kita perez [facility] 5 11:20:47 Chronic intersti tial cystitis 893030428 Active 2022 Kita perez [facility] 5 11:19:56 Chronic diarrhea 731894210 Completed 202207/20/2024 [facility] 11:19:52 Low back pain 287980140 [facility] 2022 [facility] 11:19:02 Recurren t urinary tract infectio n 483763935 Active 2022 Kita perez [facility] 5 11:19:25 Cholangi tis due to bile duct calculus with obstruct ion 26114079061 79166 Completed 202307/20/2024 Kita perez [facility] 5 11:19:44 Acute sinusiti s 82718101 Active 2023 Kita perez [facility] 5 11:17:23 Diarrhea 64434386 Active 2023 Kita perez, [facility] 5 11:20:50 Pneumoni tis 826607925 Active 2023 Kitaraj Moncadamaulik perez, [facility] 5 11:19:18 Pain of bilatera l hands 14487579702 519354 Active 2023 Kita Tracey perez, [facility] 5 11:19:14 Inflamma tory polyarth ropathy 952721088 Active 2023 Kita perez, [facility] 5 11:20:18 Pain in right sacroili ac joint 88999002268 811713 Active 2023 Kita Webb [facility] 5 11:19:10 Dysuria 01971418 Active 2023 Kitasabas Moncadae [facility], [facility] 5 11:20:11 Rib pain 304807873 Active 2023 Kita Webb [facility], [facility] 5 11:21:37 Gastroes ophageal reflux disease 483785288 Active 2023 Kita perez, [facility] 5 11:20:14 Osteoart hritis 184733899 Active [address], [address], [facility] 5 13:00:28 Morbid obesity 926184300 Active [address], [address], [facility] 5 13:07:10 Osteoart hritis of joint of bilatera l hands 41811521716 9109 Active 2024 Ha Kenneth [address], [address], [facility] 5 13:35:22 Allergic rhinitis 03422826 Active 2024 Kita Tracey perez, [facility] 5 11:27:29 Left side sciatica 47209530395 9104 Active 2024 Ha Finley [address] [address], [facility] 5 00:05:15 Trochant saud bursitis of left hip 30237140383 9103 Active 2024 Ha Finley [address] [address], [facility] 5 08:02:07 Problem Notes None recorded. Procedures Surgical History Date Name Laterality Status Provider Name and Address Organization Details Recorded Time 2024 Joint Inj Kenalog- Shoulder, Hip, Knee completed Buzz Quiroz [facility] 5 16:29:59 2024 Joint Inj Kenalog- Shoulder, Hip, Knee completed Ha Finley [address], [address] , [facility] 5 17:58:18 2023 Joint Inj Kenalog- Shoulder, Hip, Knee completed Ha Finley [address], [address] , [facility] 4 16:48:46 2023 Cholecystectomy completed Bri [facility] 4 17:17:34 2023 Joint Inj Kenalog- Shoulder, Hip, Knee completed Buzz Quiroz [facility] 4 14:38:46 2022 Most Recent Mammogram completed CLARK MONCADA [facility] 3 13:09:53 2022 Joint Inj Kenalog- Shoulder, Hip, Knee completed CARL DE LA TORRE, [address], [address] , [facility] 3 15:21:26 1989 Caesarean Section completed [facility] 4 17:18:05 endoscopic retrograd e cholangiopancreatography completed [facility] 4 17:17:44 Imaging Results None recorded. Procedure Notes None recorded. Medical Equipment None Reported. Allergies Allergen ID Allergen Name Allergen Category Reaction Reaction Severity Criticality Documentation Date Start Date Code Code System Note Provider Name and Address Organization Details Recorded Time 282 doxycycli ne Not available rash mild low 07/17/2022 3640 RxNorm [facility] 4 17:14:32 284 Levaquin medicatio n dizziness vomiting mild moderate low 07/17/2022 50393 2 RxNorm [facility] 4 17:14:57 287 Zoloft medicatio n hives moderate Not available 07/17/2022 42493 RxNorm turn s me beat red and I itch [facility] 4 17:16:31 288 Substance with sulfonami de structure and antibacte rial mechanism of action (substanc e) medicatio n itching moderate low 07/17/2022 23662 8003 SNOMED Redne ss, itchi ng and swell ing. [facility] 4 17:15:36 [address]5427 sertralin e hydrochlo ride medicatio n Not available Not available Not available 11/23/2022 61017 7 RxNorm Bri perez, [facility] 4 17:16:17 46594 Bactrim medicatio n rash mild low 11/23/2022 01853 9 RxNorm [facility] 4 17:14:24 63951 nitrofura ntoin medicatio n other Not available Not available 04/12/[address] [facility] it stopp ed worki [facility] 4 17:16:04 810 meloxicam medicatio n edema headache hives moderate moderate moderate high 07/27/2022 85630 RxNorm Ha Finley, [address], [address] , [facility] 5 11:43:05 Medications Name Sig Start Date Stop Date Status Note LastModified by Organization Details LastModified Time eq mucus-d 60-600mg tab TAKE 1 TABLET BY MOUTH TWICE DAILY NEEDED 02/04 completed Not Available Not Available Not Available cyclobenz aprine 10 mg tablet Take 1 tablet twice a day by oral route. 06/29 completed Not Available Not Available Not Available amoxicill in 500 mg capsule 01/01 completed Not Available Not Available Not Available budesonid e 32 mcg/actua tion nasal spray Take 2 sprays every day by nasal route. 03/30 completed Not Available Not Available Not Available promethaz ine-DM 6.25 mg-15 mg/5 mL oral syrup TAKE 5 ML BY MOUTH EVERY 4 HOURS NEEDED FOR COUGH 02/04 completed Not Available Not Available Not Available Estring 2 mg (7.5 mcg/24 hour) vaginal ring INSERT 1 RING VAGINALL Y DIRECTED EVERY 90 DAYS 03/30 completed Not Available Not Available Not Available tizanidin e 2 mg tablet 06/29 completed Not Available Not Available Not Available Carafate 1 gram tablet Take 1 tablet 4 times a day by oral route as needed, for Reflux.. 2024 active Not Available Not Available Not Avai lable ibuprofen 800 mg tablet 03/19 completed Not Available Not Available Not Available tizanidin e 4 mg tablet TAKE 1 TABLET BY MOUTH EVERY 6 HOURS active Not Available Not Available No t Available fluconazo le 150 mg tablet TAKE ONE TABLET BY MOUTH NOW, REPEAT IN ONE WEEK IF SYMPTOMS PERSIST 12/04 completed Not Available Not Available Not Available benzonata te 200 mg capsule TAKE 1 CAPSULE BY MOUTH THREE TIMES DAILY NEEDED FOR COUGH 12/15 completed Not Available Not Available Not Available hydrocodo ne 5 mg-acetam inophen 325 mg tablet TAKE 1 TABLET BY MOUTH EVERY 6 HOURS NEEDED FOR PAIN 08/03 completed Not Available Not Available Not Available Claritin 10 mg tablet Take 1 tablet every day by oral route. active Not Available Not Available No t Available prednison e 20 mg tablet TAKE 1 TABLET BY MOUTH ONCE DAILY DIRECTED FOR 5 DAYS 09/09 completed Not Available Not Available Not Available clobetaso l 0.05 % topical cream APPLY CREAM TOPICALL Y TWICE DAILY FOR 14 DAYS 07/31 completed Not Available Not Available Not Available ciproflox acin 500 mg tablet TAKE 1 TABLET BY MOUTH TWICE DAILY FOR 7 DAYS 07/31 completed Not Available Not Available Not Available sulfameth oxazole 800 mg-trimet hoprim 160 mg tablet 06/29 completed Not Available Not Available Not Available triamcino lone acetonide 0.1 % topical cream APPLY A THIN LAYER OF CREAM TOPICALL Y TO AFFECTED AREA TWICE DAILY 11/14 completed Not Available Not Available Not Available Kenalog 40 mg/mL suspensio n for injection Take 40 mg by injectio n route. 02/01 completed Not Available Not Available Not Available Macrobid 100 mg capsule Take 1 capsule every 12 hours by oral route for 7 days. 04/23 completed Not Available Not Available Not Available meloxicam 7.5 mg tablet TAKE 1 TABLET BY MOUTH ONCE DAILY IN THE EVENING active Not Available Not Available No t Available betametha sone acetate and sodium phos 6 mg/mL suspensio n for injection Take 6 mg by injectio n route. 02/04 completed Not Available Not Available Not Available oxycodone -acetamin ophen 5 mg-325 mg tablet TAKE 1 TABLET BY MOUTH EVERY 6 HOURS NEEDED FOR PAIN FOR 5 DAYS 08/03 completed Not Available Not Available Not Available ceftriaxo ne 1 gram solution for injection Take 1 g as needed by injectio n route for 1 day. 05/05 completed Not Available Not Available Not Available methenami ne hippurate 1 gram tablet TAKE 1 TABLET BY MOUTH TWICE DAILY. TAKE 1000 MG OF VITAMIC C WITH EACH DOSE OF METHENAM INE. 07/31 completed Not Available Not Available Not Available amoxicill in 875 mg tablet TAKE 1 TABLET BY MOUTH TWICE DAILY FOR 10 DAYS 02/01 completed Not Available Not Available Not Available amitripty line 25 mg tablet TAKE 1 TABLET BY MOUTH ONCE DAILY NIGHTLY BEFORE BED 07/31 completed Not Available Not Available Not Available dicyclomi ne 20 mg tablet Take 1 tablet 3 times a day by oral route. 03/19 completed Not Available Not Available Not Available amitripty line 10 mg tablet TAKE 1 TABLET BY MOUTH ONCE DAILY 03/19 completed Not Available Not Available Not Available meclizine 25 mg tablet TAKE 1 TABLET BY MOUTH THREE TIMES DAILY NEEDED active Not Available Not Available No t Available cephalexi n 500 mg capsule TAKE 1 CAPSULE BY MOUTH THREE TIMES DAILY 07/31 completed Not Available Not Available Not Available erythromy nila 5 mg/gram (0.5 %) eye ointment APPLY 1 CM RIBBON INTO THE LOWER CONJUNCT IVAL SAC(S) IN THE AFFECTED EYE(S) BY OPHTHALM IC ROUTE 4 TIMES PER DAY 06/29 completed Not Available Not Available Not Available nystatin 100,000 unit/gram topical cream APPLY CREAM TOPICALL Y TO AFFECTED AREA TWICE DAILY 08/28 completed Not Available Not Available Not Available clotrimaz ole-betam ethasone 1 %-0.05 % topical cream APPLY CREAM TOPICALL Y TO AFFECTED AREA TWICE DAILY 07/31 completed Not Available Not Available Not Available lansopraz ole 30 mg capsule,d elayed release TAKE 1 CAPSULE BY MOUTH DAILY active Not Available Not Available No t Available polymyxin B sulfate 10,000 unit-trim ethoprim 1 mg/mL eye drops INSTILL 1 DROP INTO AFFECTED EYE(S) BY OPHTHALM IC ROUTE EVERY 6 HOURS 06/29 completed Not Available Not Available Not Available gabapenti n 100 mg capsule TAKE 1 CAPSULE BY MOUTH TWICE DAILY 08/28 completed Not Available Not Available Not Available cefuroxim e axetil 500 mg tablet TAKE 1 TABLET BY MOUTH TWICE DAILY PRN 03/19 completed Not Available Not Available Not Available levofloxa nila 500 mg tablet 07/31 completed Not Available Not Available Not Available estradiol 0.01% (0.1 mg/gram) vaginal cream INSERT 0.5 GRAMS VAGINALL Y EVERY FRIDAY, , AND FRIDAY. 01/22 completed Not Available Not Available Not Available methylpre dnisolone 4 mg tablets in a dose pack TAKE BY MOUTH DIRECTED ON INSIDE OF PACKAGE 03/23 completed Not Available Not Available Not Available albuterol sulfate HFA 90 mcg/actua tion aerosol inhaler Inhale 2 puffs every 4-6 hours by inhalati on route as needed, for cough/ shortnes s of breath. active Not Available Not Available No t Available celecoxib 100 mg capsule TAKE 1 CAPSULE BY MOUTH ONCE DAILY FOR 30 DAYS FOR JOINT PAIN active on hold Not Available Not Available No t Available ondansetr on 4 mg disintegr ating tablet DISSOLVE 1 TABLET IN MOUTH THREE TIMES DAILY NEEDED active Not Available Not Available No t Available cefdinir 300 mg capsule TAKE 1 CAPSULE BY MOUTH TWICE DAILY 07/31 completed Not Available Not Available Not Available amoxicill in 875 mg-potass ium clavulana te 125 mg tablet TAKE 1 TABLET BY MOUTH TWICE DAILY FOR 7 DAYS 09/09 completed Not Available Not Available Not Available amoxicill in 500 mg-potass ium clavulana te 125 mg tablet 04/23 completed Not Available Not Available Not Available solifenac in 10 mg tablet Take 1 tablet every day by oral route. 04/23 completed Not Available Not Available Not Available Mucinex D 60 mg-600 mg tablet,ex tended release Take 1 tablet twice a day by oral route as needed. 02/04 completed Not Available Not Available Not Available albuterol sulfate every four hours 12/04 completed 0; Recorded 05/14/19 10:10AM by Mayela Jaquez, Office Visit; Not Available Not Available Not Available amitripty line at bedtime 12/04 completed 0; Recorded 05/14/19 23 10:10AM by Mayela Jaquez, Office Visit; Not Available Not Available Not Available diclofena c 1 % topical gel APPLY 2 GRAMS TO THE AFFECTED AREA(S) BY TOPICAL ROUTE up to 4 TIMES PER DAY 2024 active Not Available Not Available Not Avai lable 24 Hour Allergy Relief 50 mcg/actua tion nasal spray,scottie [employer] [place] 1 spray every day by intranas al route. active Not Available Not Available No t Available Vitals Date Recorded Body height Body mass index (BMI) Body weight Oxygen saturation Oxygen saturation in Arterial blood by Pulse oximetry Heart rate Respiratory rate Systolic And Diastolic Provider Name and Address Organization Details Last Updated DateTime 5 157.48 cm 36.3 kg/m2 73436.3 9 g 99 % 99 % 75 /min 18 /min 130/80 mm[Hg] Kita Webb [facility] 5 11:29:13 Date Recorded Body height Body mass index (BMI) Body weight Oxygen saturation Oxygen saturation in Arterial blood by Pulse oximetry Heart rate Body temperature Respiratory rate Systolic And Diastolic Provider Name and Address Organization Details Last Updated DateTime 5 157.48 cm 36.6 kg/m2 91029.5 7 g 97 % 97 % 75 /min 97.8 [degF] 17 /min 126/84 mm[Hg] REFUGIO GIBSON [facility] 5 17:36:14 Date Recorded Body height Body mass index (BMI) Body weight Oxygen saturation Oxygen saturation in Arterial blood by Pulse oximetry Heart rate Respiratory rate Systolic And Diastolic Provider Name and Address Organization Details Last Updated DateTime 5 157.48 cm 36.2 kg/m2 70804.9 9 g 99 % 99 % 72 /min 18 /min 124/88 mm[Hg] Kita Webb [facility] 5 16:15:09 Date Recorded Body height Body mass index (BMI) Body weight Body temperature Heart rate Oxygen saturation Oxygen saturation in Arterial blood by Pulse oximetry Systolic And Diastolic Provider Name and Address Organization Details Last Updated DateTime 5 157.48 cm 35.5 kg/m2 97615.9 2 g 98.1 [degF] 69 /min 97 % 97 % 132/84 mm[Hg] Renetta Medardo [facility] 5 12:51:52 Date Recorded Body height Body mass index (BMI) Body weight Oxygen saturation Oxygen saturation in Arterial blood by Pulse oximetry Heart rate Respiratory rate Systolic And Diastolic Provider Name and Address Organization Details Last Updated DateTime 5 157.48 cm 35.5 kg/m2 07732.9 2 g 99 % 99 % 80 /min 18 /min 120/80 mm[Hg] Kita Webb [facility] 5 14:19:45 Social History Question Answer Notes LastModified by [employer] Details LastModified Time Tobacco Smoking Status Never [facility] 03/19/2023 11:56:48 What Was The Date Of Your Most Recent Tobacco Screening? 01/22/2025 [email or web address] Information not available 01/22/2025 Sex: Unknown Functional Status Question Answer Note LastModified by Organizat ion Details LastModified Time Do you use any illicit or recreational drugs? No [email or web address] Information not available 08/27/2022 Do you or have you ever used any other forms of tobacco or nicotine? No [email or web address] Information not available 08/27/2022 What is your level of alcohol consumption? None [email or web address] Information not available 08/27/2022 Mental Status None recorded. Family History Nothing Reported. Medical History Condition Response Coronary Artery Disease N Other N Gout N Kidney Stones N Blood Diseases N Hyperthyroidism N Breast Cancer N Blood Transfusion N Hypothyroidism N Lung Disease N COPD N Depression N Defects or Inherited Disease N Developmental or Behavioral Disorders N Breast Problem N Difficulty Swallowing N Anesthesia Complications N Meniere's disease N Anxiety Disorder N Muscle, Joint, or Bone Problems N Vision or Eye Problems N Arthritis N Infertility N Polyps N Cancer N Stroke N Varicosities N Endometriosis N Bladder or Kidney Problems N High Cholesterol N Liver Disease N Fibromyalgia N Headaches N Kidney Disease N Allergies/Hayfever N Heart Problems N Ear or Hearing Problems N Hospitalizations N Thyroid Problems N GI Problems N ADD/ADHD N Skin Problems N Eating Disorder N Anemia N Constipation N Mental Illness N Ovarian Cancer N Diabetes N Bedwetting N Seizures/Epilepsy N Tuberculosis N Eczema N Diverticulitis N Abuse/Domestic Violence N Asthma N Reflux/GERD N Hepatitis N Heart Disease N Pulmonary Embolism N Chronic Ear Infections N Pre-Eclampsia N Hypertension N Chicken Pox N Autism Spectrum Disorder (ASD) N Osteoporosis N Thrombophilias N Gynecological History Statement/Question Response Most Recent Mammogram 03/06/2023 Obstetrics History GPAL:G 0 P 0 0 0 0 Past Encounters Encounter ID Performer Location Encounter Start Date Encounter Closed Date Diagnosis/Indication Diagnosis SNOMED-CT Code Diagnosis ICD10 Code Diagnosis IMO Codes Diagnosis Note [id number] HOLLY VALDEZ [facility] [address] [place] [address] [phone] 5 07/17/2022 13:17:29 08/03/2022 07:21:20 Left side sciatica 9874417514 35000 M54.32 [id number] Ha Finley DO [facility]) [address] [place] [address] [phone] 5 07/31/2022 10:29:07 10/03/2022 14:11:52 Chronic abdominal pain 582812546 R10.9 concern for IBS. counseled on diet, nsaids. fluids, rest, probiotic. [id number] Ha Finley DO [facility]) [address] [place] [address] [id number] 5 08/27/2022 11:16:58 08/27/2022 19:25:23 Pain of sacroiliac joint 903496608 M53.3 will start prednisone burst. handout given on exercises. 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 Chronic in terstitial cystitis 619299858 N30.10 has been on daily abx for years, they are concerned this has cuased some chronic bladder and vaginal pain issues and stomach issues. Dr. Christiansen, urology has retired, recommend f/u with a urogynocol ogyst. she will contact the Office is [address]. . Pain of sa croiliac joint 348412155 M53.3 improved. [id number] Ha Finley DO [facility] [address] [place] [address] [id number] 5 01/01/2023 08:12:45 01/01/2023 13:10:35 Dysuria 13972317 R30.0 [id number] STEVEN JOSHUA [facility] [address] [place] [address] [phone] 5 01/04/2023 14:27:16 01/04/2023 16:30:59 Right lower quadrant pain 352893006 R10.31 Diarrhea 40038498 R19.7 Stool culture and O&P collection kit sent with patient. Diverticul osis of colon 156942061 K57.30 [id number] Ha Finley DO [facility] [address] [place] [address] [phone] 5 01/08/2023 08:14:53 01/08/2023 11:51:26 Chronic diarrhea 515999740 K52.9 mild, still acute, on day 9-10. Tolerating food and water. Patient to finish her antibiotic s will await stool cultures. Will provide Bentyl for as needed cramps continue Zofran for as needed nausea. Stomach cramps 24232694 R10.9 [id number] Ha Finley DO [facility] [address] [place] [address] [phone] 5 01/15/2023 09:17:26 01/15/2023 11:16:21 [id number] Ha Finley DO [facility] [address] [place] [address] [id number] 5 01/28/2023 09:34:48 01/28/2023 18:04:59 Low back pain 885255331 M54.50 muscluar vs renal. has US scheduled on 02/04. will start prn muscle relaxer. counseled on acitivty.k eep f/u with urology on US. [id number] Ha Finley DO [facility] [address] [place] [address] [phone] 5 02/06/2023 09:57:36 02/06/2023 12:54:39 [id number] Ha Finley DO [facility] [address] [place] [address] [phone] 5 03/19/2023 11:49:51 03/19/2023 14:17:24 Low back pain 231692627 M54.50 Renal US negative with Urology. Recent ER visit, CT reportedly negative. Counseled pt 12th rib is tender today, she is describing her pain at the 12th rib, I recommend seeing Chiropract or at this point. [id number] RACHEL KAPADIA [facility] [address] [place] [address] [phone] 5 04/08/2023 13:35:45 04/08/2023 15:17:52 Dysuria 01234881 R30.0 Acute urin clare tract infection 931778629 N39.0 Start Macrobid BID x7 days, take as prescribed . Encouraged to increase water intake and decrease caffeine and sugary drinks. If still having symptoms after completion of antibiotic s, recommend a urine re-check. Urine was sent for culture. Will call with culture results. If worsening condition or no improvemen t in 3-5 days, recommend returning for re-evaluat ion. Patient verbalized understand ing. [id number] Ha Finley DO [facility] [address] [place] [address] [id number] 5 04/23/2023 10:27:31 04/23/2023 13:04:06 Recurrent urinary tract infection 827723755 N39.0 will not have her start bactrim due to prior severe Side Effects. will give IM rocephin today and start on augmentin. repeat UA and culture today. Return to office with no improvemen t or any problems. Go to ER with severe worsening or severe problems. [id number] GEOVANNY OVIEDO PA-C [facility] [address] [place] [address] [id number] 5 05/02/2023 13:07:26 05/02/2023 14:23:14 Bacterial conjunctivitis 282679744 H10.9 Right uppe r quadrant pain 397585766 R10.11 monitor for nowHas upcoming appt with PCP. [id number] Ha Finley DO [facility] [address] [place] [address] [id number] 5 05/05/2023 13:22:02 05/05/2023 15:43:16 Chronic diarrhea 006594730 K52.9 mild, still acute, on day 9-10. Tolerating food and water. Patient to finish her antibiotic s will await stool cultures. Will provide Bentyl for as needed cramps continue Zofran for as needed nausea. Abdominal pain 46369463 R10.9 05/05/23- counseled will check her urine again and obtain abd XR, Urology is working on getting CT approved with insurance. I have independen tly reviewed and interprete d XR results, d/w patient. Dr. Karen Finley.X R showed constipati on, counseled no stones on the XR, advised MOM or Miralax until constipati on resolved, fiber supplement daily, increase water intake to make sure she is getting plenty of water daily, daily stool softener.U rine with blood, no infection. [id number] Ha Finley DO [facility] [address] [place] [address] [phone] 5 05/13/2023 12:35:04 05/14/2023 10:31:07 Dysuria 39554659 R30.0 Recurrent kidney stone 9198259840 901667 N20.0 [id number] Ha Finley DO [facility] [address] [place] [address] [id number] 5 05/28/2023 14:07:39 05/28/2023 15:31:15 Pain of sacroiliac joint 379761653 M53.3 05/28/23 deteriorat ed, left, steroid injection today into joint as per above. counseled pt on expectatio ns. home stretches, exercise. nsaids. consider PT. Return to office with no improvemen t or any problems. Go to ER with severe worsening or severe problems. [id number] Ha Finley DO [facility] [address] [place] [address] [id number] 5 06/30/2023 10:35:00 06/30/2023 11:42:19 Cholangitis due to bile duct calculus with obstruction 4094015833 136311 K80.31 3 obstructin g stones found in distal common bile duct. Pt was treated in ER at [facility] on 06/08/23 then transferre d to [facility] for ERCP on 06/09/23. has f/u with Dr Ramos to evaluate the stent, and planned LapGB in the next few wks. [id number] Ha Finley DO [facility] [address] [place] [address] [phone] 5 07/21/2023 14:34:59 07/22/2023 09:38:30 Pain of sacroiliac joint 553904508 M53.3 deteriorat ed, left, steroid injection today into joint as per above. counseled pt on expectatio ns. home stretches, exercise. nsaids. consider PT. Return to office with no improvemen t or any problems. Go to ER with severe worsening or severe problems. I recommende d considerin g gabapentin treatment to assist with neuropathi c pain. She wants to hold off at this time. Counseled patient on exercise, activity, weight loss. [id number] Ha Finley DO [facility] [address] [place] [address] [id number] 5 07/30/2023 12:33:37 07/30/2023 13:23:15 Pain of sacroiliac joint 181531494 M53.3 07/30/23- counseled XR L spine and SI joints today, pending results will consider MRI, or PT. She prefers PTSC. Discussed Gabapentin , reassured her it is not Amitriptyl ine, if she is having memory issues she can stop it, will start this today. Dysuria 68370540 R30.0 UA with trace blood, no infection. [id number] STEVEN JOSHUA SLINGER SEQUINS [facility] [address] [place] [address] [id number] 5 08/29/2023 17:09:27 08/29/2023 17:54:27 Bite of insect 167812649 W57.XXXA [id number] HOLLY DIAS [facility] [address] [place] [address] [id number] 5 11/15/2023 16:03:20 11/15/2023 16:42:27 Sore throat 235107961 J02.9 Acute uppe r respiratory infection 32084955 J06.9 May use OTC antihistam patricio and flonase for symptom relief. RTC with any purulent sputum production , fever, or pain. [id number] Darrel Eaton MD [facility] [address] [place] [address] [phone] 5 11/25/2023 10:41:17 11/25/2023 11:13:43 [id number] Darrel Eaton MD [facility] [address] [place] [address] [phone] 5 11/25/2023 10:47:36 11/25/2023 11:14:36 Acute sinusitis 79039645 J01.90 [id number] HOLLY DIAS [facility] [address] [place] [address] [id number] 5 11/30/2023 14:10:32 11/30/2023 15:17:49 Serous otitis media 33696289 H65.91 Continue current medication s and treatments . [id number] Ha Finley DO [facility] [address] [place] [address] [id number] 5 12/05/2023 10:25:14 12/05/2023 11:44:39 Pneumonitis 044295914 J18.9 Post COVID. Will continue Flonase and antihistam patricio. Will add prednisone and Tessalon Perles as well as albuterol inhaler. Expect slow improvemen t over the next several weeks. Return with any worsening. [id number] Ha Finley DO [facility] [address] [place] [address] [phone] 5 12/16/2023 12:06:35 12/16/2023 13:30:51 Cough 23703380 R05.9 Counseled take OTC Claritin she has at home daily for the next 4 weeks, steroid injection in clinic today, ok to continue Tessalon Perles. Consider PFT if not improving. [id number] Ha Finley DO [facility] [address] [place] [address] [phone] 5 02/05/2024 10:06:42 02/05/2024 14:15:11 Inflammatory polyarthropathy 497378602 M06.4 concern for RA or other. will get labs today. counseled on possible DX vs OA.increas e advil+ to 2 tabs TID. counseled on exercise/a ctivity. Pain of bi lateral hands 7851308625 4563346 M79.641 M79.642 concern for possible RA. will get xrays. labs.incre ase advil+ to 2 tabs TID. . counseled [id number] Houston Khan MD [facility] [address] [place] [address] [id number] 5 03/18/2024 11:25:43 03/18/2024 14:17:10 Dysuria 89482738 R30.0 UA was obtained and was negative for infection. The patient has chronic microscopi c hematuria Pain in ri ght sacroiliac joint 3431325407 1299041 M53.3 Patient does have significan t tenderness overlying her right SI joint. The patient likely has mild overuse injury secondary to recent changes in activity. Recommend stopping ibuprofen as this is likely contributi ng to the nausea. Will go ahead and do a Medrol Dosepak to help with inflammati on. The patient was encouraged to eat with this medication . Will also provide muscle relaxer. Discussed relative rest and other interventi ons that we can do to assist in her discomfort and improvemen t of her issues. Recommend following up with PCP if symptoms do not improve. [id number] Ha Finley DO [facility] [address] [place] [address] [id number] 5 03/23/2024 12:49:02 03/27/2024 16:20:28 Rib pain 473977616 R07.81 right ribs 8-11 sublux with msucle spasm. continue tizandine prn. chiropract or. Return to office with no improvemen t or any problems. Go to ER with severe worsening or severe problems. [id number] HOLLY GARCIA [facility] [address] [place] [address] [id number] 5 03/30/2024 12:40:41 03/30/2024 13:37:17 Intermittent palpitations 616590615 R00.2 EKG shows a few palpitatio ns, no acute ischemia. Gastroesop hageal reflux disease without esophagitis 483047221 K21.9 increase lansoprazo le to bid and f/u with pcp next week. Decrease caffeine, no food/fluid s other than water 2 hours prior to bed. [id number] Ha Finley DO [facility] [address] [place] [address] [phone] 5 04/06/2024 10:21:12 04/08/2024 10:50:59 Dyspnea 363302329 R06.00 04/06/24- counseled lungs do sound irritated, will write inhaler to use as needed. Intermitte nt palpitations 499315519 R00.2 04/06/24- Reassured pt EKG performed last week appeared well. She will resume her Tizanidine , work on decreasing anxiety Pain in ri ght sacroiliac joint 7016917964 6472173 M53.3 Counseled ok to resume Tizanidine as needed. Gastroesop hageal reflux disease 144679896 K21.9 04/06/24- continue Lansoprazo le, counseled elevate HOB, no eating 3-4 hours prior to bed, will start Carafate before bed and before meals. [id number] Ha Finley DO [facility] [address] [place] [address] [id number] 5 07/20/2024 10:55:12 07/20/2024 12:43:21 Osteoarthritis 310075619 M19.90 07/20/24: counseled flare today, hasn't tolerated Meloxicam in the past, will start Celecoxib 100mg daily, consider increasing if needed, avoid Ibuprofen, ok to take Tylenol ES #2 tabs BID. Counseled on diagnosis, treatment options including medication s and possible side effects. Viral uppe r respiratory tract infection 270636303 J06.9 07/20/24: Counseled likely viral, continue Flonase, Claritin, nightly nasal wash. [id number] HOLLY GARCIA [facility] [address] [place] [address] [id number] 5 07/30/2024 11:28:15 07/30/2024 12:01:11 Acute pansinusitis 6711476 J01.40 Discussed use of antibiotic . Take with food.May use Bronson's nasal inserts and also apply on chest. Push oral fluids. Consider nasal saline rinses and otc decongesta nt.Use tylenol/mo hansel for poon. [id number] Ha Finley DO [facility] [address] [place] [address] [id number] 5 09/09/2024 12:08:30 09/13/2024 10:32:57 Morbid obesity 726352476 E66.01 36132 I counseled pt on obesity. We discussed risks and ways to loose weight. Pt will work on diet, exercise.S he will start a calorie counting viviana on her phone. goal is 1600 melanie/day and walking 5 day/wk Osteoarthr itis of joint of bilateral hands 0803063387 98486 M19.041 M19.042 93911501 moderate. stop celebrex due to possible weight gain. start topical. start tylenol. f/u 3 wks. Allergic rhinitis 241393 04 J30.9 3918719 worsening. increse flonase and claritin to bid for 2 wks. [id number] Ha Finley DO [facility] [address] [place] [address] [id number] 5 10/05/2024 10:31:24 10/05/2024 12:12:01 Left side sciatica 1869440270 38331 M54.32 start mobic. counseled on takig with food. monitor stomach symptoms. Morbid obesity 807547648 E66.01 10939 I counseled pt on obesity. We discussed risks and ways to loose weight. Pt will work on diet, exercise.S he will start a calorie counting viviana on her phone. goal is 1600 melanie/day and walking 5 day/wk Osteoarthr itis of joint of bilateral hands 6783456391 81602 M19.041 M19.042 68002977 moderate. stop celebrex due to possible weight gain. start topical. start tylenol. f/u 3 wks. [id number] Ha Finley DO [facility] [address] [place] [address] [id number] 5 10/11/2024 17:26:21 10/11/2024 18:13:07 Pain of sacroiliac joint 367453548 M53.3 10/11/24: acute flair.I counseled pt on DX and treatment options. Pt desires to proceed with Joint injection today. Performed as documented . Pt tolerated well. counseled on limiting activity the next 24 hrs. return if problems.- counseled XR L spine and SI joints today, pending results will consider MRI, or PT. She prefers PTSC. Discussed Gabapentin , reassured her it is not Amitriptyl ine, if she is having memory issues she can stop it, will start this today. Osteoarthritis 471012114 M19.90 10/11/24: pt not tolerating meloxicam. ok to continue Tylenol and prn IBU. 5: counseled flare today, hasn't tolerated Meloxicam in the past, will start Celecoxib 100mg daily, consider increasing if needed, avoid Ibuprofen, ok to take Tylenol ES #2 tabs BID. Counseled on diagnosis, treatment options including medication s and possible side effects. [id number] Ha Finley DO [facility] [address] [place] [address] [phone] 5 12/01/2024 15:40:15 12/07/2024 14:43:56 Trochanteric bursitis of left hip 1349223778 95008 M70.62 [id number] 12/01/24: Patient tolerated injection. Patient will monitor site for signs of infection and report any adverse side effects. [id number] HOLLY DIAS [facility] [address] [place] [address] [phone] 5 01/22/2025 12:37:16 01/22/2025 13:46:18 Nausea 811686274 R11.0 35544 Dizziness 486149053 R42 79758 middle ear right effusion present. Will send in meclizine. Weakness o f bilateral lower limb 8751715899 94307 R29.898 469978 Discussed use of otc magnesium for muscle cramps. However, discussed with patient need for further evaluation if continued weakness occurs, worsens or moves up the legs. Will monitor symptoms and follow up with PCP or present to ER as discussed if this happens. [id number] Ha Finley DO [facility] [address] [place] [address] [phone] 5 02/01/2025 14:08:45 02/02/2025 10:32:43 Gastroesophageal reflux disease 082918753 K21.9 7816506945 02/01/25: Counseled start Probiotic twice daily, continue Lansoprazo le, take it twice daily for one week then back to once daily, Sucralfate as needed. If abd symptoms not improving consider returning to [facility] for evaluation .04/06/24- continue Lansoprazo le, counseled elevate HOB, no eating 3-4 hours prior to bed, will start Carafate before bed and before meals. Diarrhea 70482172 R19.7 Health Concerns Section Related Observation LastModified by Organization Detai ls LastModified Time None Recorded Concern Status LastModified by Organization Details LastModified Time None Recorded Advance Directives Directive None Recorded Payers Insurance Date Sequence Insurance Name Policy Number Policy Vasquez Covered Member ID Vasquez Member ID Guarantor Name 01/29/2025 1 FÉLIX - [employer] [employer] [place] Dori Rodríguez [id number] 2 Dori Rodríguez Notes Date Note Type Note Provider Name and Address Organization Details Recorded Time 10/05/2024 text/html ROS as noted in the HPI Pt presents for recheck 3 weeks wants to discuss labs done on 09/24/24 TSH 2.09, cholesterol panel wnl'sGlucose 101 A1c 5.6 CBC wnl's She stopped the celebrex and she has noticed the swelling in her hands have improved but the pain is worse in her joints She has been working on weight loss. our goal last visit was 1600cal diet and increase in walking. She is able to stay around 1600cal most of the time, but her joint pain is worse, and not able to exercise. Ha Finley DO [address] [place] [address], [phone], [facility] 10/14/2024 00:05:54 10/11/2024 text/html Joint PainReport ed by PatientHPIFor severity, patient reportsworsening. For location, patient reportsleft hip. For timing, patient reportsintermittent . For aggravating factors, patient reportsmovement/pos itioning.ROS as noted in the HPI Patient c/o left hip pain. Unable to take the Meloxicam, could not tolerate it. She's been alternating between Ibuprofen and Tylenol to help with the pain. she has chronis left SI joint arthralgia, she has responded well to joint injections in the past. last was more than 1 year ago. Ha Finley DO [address] [place] [address], [phone], [facility] [place] 10/11/2024 19:10:53 12/01/2024 text/html ROS as noted in the HPI Pt presents for recheck of left hip pain. We performed steroid injection in the L SI on 10/11/24. She is still having pain in her left hip.She went to the chiropractor one week ago, was readjusted and it helped but did not resolve the pain.She has pain that radiates to her left thigh which sometimes radiates to her foot She is alternating Tylenol and Ibuprofen for the pain. She has been working on some stretches at home. Ha Finley DO [address] [place] [address], [phone], [facility] [place] 12/02/2024 08:05:38 01/22/2025 text/html ROS as noted in the HPI walk in ptPT is having nausea on and off, light headed occasionally with position changes and her legs feel weak for 4 days. Denies any known exposure to illness. Denies any chest pain or shortness of breath. Patient states that she has had some muscle cramps in bilateral lower extremities over the last 2 weeks. HOLLY DIAS [address] [place] [address], [phone], [facility] [place] 01/22/2025 13:20:28 02/01/2025 text/html ROS as noted in the HPI Pt presents for stomach She gets nauseated or has diarrhea every time she eats, onset 2-3 weeks ago. She also does not eat much since her stomach hurts when she is eating and has to stop. Seen in [place] on 01/22/25, fluid right ear, tx with Meclizine and Ondansetron. She went to [facility] and received Amoxicillin and sinus med otc with Flonase. She is still using Claritin and Flonase. She did not finish the Amoxicillin, reports it made her stomach hurt. Continues Lansoprazole, no longer taking Sucralfate.Not taking Probiotic. ERCP 06/09/23 with [facility]. She recalls CBD being full of stones.No recent f/u with GI regarding stomach issues, reports he wasn't having any until this past week. Ha Finley DO [address] [place] [address], [phone], [facility] 02/02/2025 09:29:31 OBGyn Episode No OBEpisode recorded.
--- OUTSIDE RECORDS SUMMARY | 2025-02-05 21:12 | XMS_ITS | Patient Health Record ---
Author Organization [facility] Address [address] [place] [address] Care Team Providers Care Security Associate Name Role Phone Cooper Misbah TRUJILLO Primary Care Provider Unavail able Juana Zazueta Unavailable [phone] Allergies Allergen (clinical drug ingredient) Drug/Non Drug Allergy documented on EMR Reaction Allergy Type Onset Date Status Levaquin Unknown Drug Allergy 12/25/2022 active nitrofurantoin Nitrofurantoin Unknown Drug Allergy 023 active doxycycline Doxycycline Unknown Drug Allergy 12/10/2022 ac tive Substance with sulfonamide structure and antibacterial mechanism of action (substance) Sulfa Antibiotics Unknown Drug Allergy 12/11/2022 active Results Component Value Reference Range Notes UA Without Micro-Auto, [place] - [id number] Reviewed date:06/21/2024 08:48:54 AM Interpretation: Performing Lab: Notes/Report: Glucose - Bili - Ketones - Sp [place] 1.010 Blood - pH 6.5 Protein - Urobili - Nitrites - Leukocytes +- Reason For Referral No Information Medications Medication SIG (Take, Route, Frequency, Duration) Notes Start Date End Date Status Ondansetron 4 MG Tablet Disintegrating 1 tablet on the tongue and allow to dissolve Orally q4-6h as needed; Duration: 30 days 06/12/2023 Not-Taking Tylenol 325 MG Tablet 1 tablet as needed Orally every 6 hrs Active Flonase Active Lansoprazole 30 MG Capsule Delayed Release TAKE 1 CAPSULE BY MOUTH TWICE DAILY Oral; Duration: 90 Days Active diphenhydramine hydrochloride 25 MG Oral Capsule [Benadryl] ORAL *Reorder from [facility] for eRx and Interaction Alerts* 12/10/2022 Not-Taking lansoprazole 30 MG Delayed Release Oral Capsule ORAL *Reorder from [employer] for eRx and Interaction Alerts* 12/10/2022 Not-Taking Social History Social History Additional Details Category Social Info Options Details Migrated Social History Migrated Social History History of tobacco use : , Smoking Status : Former tobacco user Section Notes: Former smoker Denies alcohol Admits caffiene- 3-4 cups of coffee per day Problems Problem Type SNOMED Code ICD Code Onset Dates Problem Status W/U Status Risk Notes Problem Urge incontinence of urine (49081658) Urge incontinence (N39.41) Active confirmed Problem Choledochal cyst (6333744852) Choledochal cyst (Q44.4) Active confirmed Problem Flank pain (055738349) Flank pain (R10.9) Active confirmed Problem Atrophy of vagina (626526777) Vaginal atrophy (N95.2) Active confirmed Problem Recurrent urinary tract infection (391466469) Recurrent UTI (N39.0) Active confirmed Problem Cholelithiasis without obstruction (54033886) Symptomatic cholelithiasis (K80.20) Active confirmed Problem Pelvic and perineal pain (579956080) Suprapubic pressure (R10.2) Active confirmed Vital Signs Heart Rate 65 /min 06/21/2024 Temperature 98.67 degrees Fahrenheit 06/21/2024 Blood pressure diastolic 83 mm Hg 06/21/2024 Height-cm 157.48 cm 06/21/2024 Weight-kg 89.99 kg 06/21/2024 Height 62.00 in 06/21/2024 Blood pressure systolic 146 mm Hg 06/21/2024 Weight 198.4 lbs 06/21/2024 BMI 36.28 kg/m2 06/21/2024 Procedures Procedure Date Ordered Date Performed Result Body Sit e PVR (Post Void Residual) 06/21/2024 06/21/2024 N/A Encounters Encounter Location Date Provider Diagnosis [facility] [address] [place] [address] Dr Dewey [address] [place] [phone] 06/21/2024 Juana Zazueta Suprapubic pressure R10.2 ; Vaginal atrophy N95.2 ; Flank pain R10.9 ; Recurrent UTI N39.0 ; Urge incontinence N39.41 and Urinary frequency R35.0 Assessments Encounter Date Diagnosis (ICD Code) Assessment Notes Treatment Notes Treatment Clinical Notes Section Notes 06/21/2024 Vaginal atrophy (ICD-10 - N95.2) PLAN - PATIENT DID NOT TOLERATE VAGINAL ESTROGEN, MAY TRY REPLENS 06/21/2024 Suprapubic pressure (ICD-10 - R10.2) PLAN - PATIENT WILL AVOID TRIGGERS THAT CAUSE SYMPTOMS OF SUPRAPUBIC PRESSURE 06/21/2024 Flank pain (ICD-10 - R10.9) PLAN - CT IN 2022 CLEAR OF ANY ETIOLOGY FOR FLANK PAIN 06/21/2024 Recurrent UTI (ICD-10 - N39.0) PLAN - IF PATIENT FEELS SHE HAS A UTI OR UTI SYMPTOMS, SHE MAY COME IN FOR NURSE VISIT. SHE WILL HAVE TO SEE A NURSE, HAVE HER VITALS TAKEN. BE PATIENT WITH THE STAFF, THEY ARE HERE TO HELP YOU. 06/21/2024 Urge incontinence (ICD-10 - N39.41) PLAN - PATIENT WILL STOP DRINKING FLUIDS 3 HOURS BEFORE BEDTIME, WATCH HER CAFFEINE INTAKE, AND STAY AWAY FROM FOODS THAT CAUSE IRRITATION TO HER BLADDER 06/21/2024 Urinary frequency (ICD-10 - R35.0) PLAN - PATIENT WILL STOP DRINKING FLUIDS 3 HOURS BEFORE BEDTIME, WATCH HER CAFFEINE INTAKE, AND STAY AWAY FROM FOODS THAT CAUSE IRRITATION TO HER BLADDER 06/21/2024 Other PATIENT WILL FOLLOW UP IN 1 YEAR WITH UA AND PVR Plan Of Treatment Next Appt Details Provider Name:Juana Henley, 06/22/2025 11:00:00 AM, [address], [address], [place], [address], Insurance Providers Payer Name Payer Address Payer Phone Subscriber Number Group Number Insured Name Patient Relationship to Insured Coverage Start Date Coverage End Date Renee BUENO [address] [place] [phone] [id number] Dori Rodríguez Self - patient is the insured Medical (General) History Surgical History Surgery Date(Month/Year) Cholecystectomy ERCP Tubal
--- OUTSIDE RECORDS SUMMARY | 2025-02-05 21:12 | XMS_ITS | Clinical Summary ---
Author Organization [facility] Administrative Offices Address [address] [place] [phone] Care Team Providers Care Professional Application Designer Name Role Phone Unavailable Primary Care Provider Unavailabl e Allergies Active Allergy Reactions Criticality Noted Date Comments Doxycycline Hives High 11/20/2021 Medications amitriptyline (ELAVIL) 10 mg tablet TAKE 1 TABLET BY MOUTH ONCE DAILY IN THE EVENING BEFORE BED 2 Active clotrimazole-be tamethasone (Lotrisone) 1-0.05 % Cream Apply to affected area 2 times daily. 45 Gram 2 Active lansoprazole (PREVACID) 30 mg Capsule, Delayed Release(E.C.) Take 30 mg by mouth 2 times daily. 3 Active estradioL (ESTRACE) 0.01% (0.1 mg/g) vaginal cream Insert 0.5 Grams vaginally every Friday, Friday, and Friday. 42.5 Gram 3 5 Active Active Problems Problem Noted Date Diagnosed Date Post-menopausal atrophic vaginitis 10/12/2024 Encounters Date Type Department Care Team Description 11/30/2024 External Device Data [facility] ABSTRACTION Provider, Abstract 11/10/2024 External Device Data [facility] ABSTRACTION Provider, Abstract 11/09/2024 External Device Data [facility] ABSTRACTION Provider, Abstract from Last 3 Months Family History Medical History Relation Name Comments Cancer Sister Relation Name Status Comments Sister Social History Tobacco Use Types Packs/Day Years Used Date Smoking Tobacco: Never Smokeless Tobacco: Never Alcohol Use Standard Drinks/Week Comments Not Currently 0 (1 standard drink = 0.6 oz pur e alcohol) Comments No Sex and Gender Information Value Date Recorded Sex Assigned at Not on file Legal Sex Female 3:44 PM CDT Gender Identity Not on file Sexual Orientation Not on file Last Filed Vital Signs Vital Sign Reading Time Taken Comments Blood Pressure 140/80 10/12/2024 8:36 AM CDT Pulse - - Temperature - - Respiratory Rate - - Oxygen Saturation - - Inhaled Oxygen Concentration - - Weight 89.4 kg (197 lb) 10/12/2024 8:36 AM CDT Height 157.5 cm (5' 2 ) 10/12/2024 8:36 AM CDT Body Mass Index 36.03 10/12/2024 8:36 AM CDT Plan of Treatment Upcoming Encounters Date Type Department Care Team (Late st Contact Info) Description 12/13/2025 9:15 AM CDT Office Visit [facility] [address] [place] [address] Juliocesar Turk MD [address] [place] [address] Health Maintenance Due Date Last Done Comments Pre-Diabetes and Diabetes Screening 1965 DTAP/TDAP/TD VACCINES (1 - Tdap) 1985 HEPATITIS B VACCINES (1 of 3 - 19+ 3-dose series) 09/27 BREAST CANCER SCREENING 2006 COLORECTAL SCREENING 10/25/2011 Colorectal Cancer Screening 10/25/2011 FIT-DNA Q 3 years 10/25/2011 FIT/FOBT Q 1 year 10/25/2011 Flex Sig/CT Colonography Q 5 years 10/25/2011 ZOSTER VACCINE (1 of 2) 2016 INFLUENZA VACCINE (#1) 2024 PAP SMEAR 10/13/2027 10/12/2024 CERVICAL CANCER SCREENING 10/12/2029 HPV/Cotest (21-29) 10/12/2029 10/12/2024 HPV/Cotest (30-65) 10/12/2029 10/12/2024 Procedures Procedure Name Priority Date/Time Associated Diagnosis Comments CERV/VAG CYTO SCREEN PAP W/HPV Routine 10/12/2024 8:36 AM CDT Well woman exam with routine gynecological exam from Last 3 Months or Most Recently Relevant to Health Maintenance Results * (ABNORMAL) CERV/VAG CYTO SCREEN PAP W/HPV (10/12/2024 8:36 AM CDT) CLINICAL INFORMATION [facility] [employer]eth Gillett Comment:SCREENING LAST MENSTRUAL PERIOD [facility] [employer] Kern Comment:NONE GIVEN PREV PAP: [facility] [employer] Kern Comment:NONE GIVEN PREV BX: [facility] [employer] Kern Comment:NONE GIVEN SOURCE [facility] [employer] Gillett Comment:ENDOCERVIX ADEQUACY: [facility] [employer] Kern Comment: Satisfactory for evaluation. Endocervical/transformation zone component present. Age and/or menstrual status not provided GENERAL CATEGORIZATION: (A) [facility] [employer] Kern Comment:Cytology Results: Ep ithelial Cell Abnormality PAP INTERP (A) [facility] [employer] Kern Comment: Atypical Squamous Cells of Undetermined Significance (ASC-US) COMMENT (PAP TEST) [facility] [employer] Kern Comment: This Pap test has been evaluated with computer assisted technology. Suggest clinical correlation and follow-up as clinically appropriate FABRIC SEPARATOR OPERATOR: Jhonathan Kern Comment: JUDE LIMA(ASCP) CT Screening Location: [place] [address] [place] [address] PATHOLOGIST [facility] [employer] Kern Comment: Berhane Hamilton M.D., Board Certified in Anatomic Pathology and Cytopathology. (electronic signature) Pathologist Release Date/Time: 10/15/2024 08:15AM EXPLANATORY NOTE [place] [employer] Gillett Comment: EXPLANATORY NOTE: The Pap is a screening test for cervical cancer. It is not a diagnostic test and is subject to false negative and false positive results. It is most reliable when a satisfactory sample, regularly obtained, is submitted with relevant clinical findings and history, and when the Pap result is evaluated along with historic and current clinical information. HPV E6/E7 Not Detected Not Detected [facility] [employer] Kern Comment: Methodology: Plug Cutting Machine Operator-Mediated Amplification This assay detects E6/E7 viral messenger RNA (mRNA) from 14 high-risk HPV types (16,18,31,33,35,39,45,51,52,56,58,59,66,68). Cervical sources are required for HPV testing. If a vaginal source from a patient who has had a total hysterectomy with removal of cervix was submitted, please contact the testing laboratory for alternative testing options. For additional information, please refer to http://education.WorldRemit/faq/SVY282x1 (This link if provided for information/ educational purposes only.) Test Performed at: [place] [address] [place] [address] Anastacio RITCHIE Genital SWAB OF ENDOCERVIX / Unknown 10/12/2024 8:36 AM CDT 10/13/2024 7:21 PM CDT us Juloicesar Turk MD PATHOLOGY/CYTOLOGY ORDERABLE S Final Result Performing Organization Address City/State/[facility] Co de Phone Number [facility] [phone] [place] [address] [place] [address] from Last 3 Months or Most Recently Relevant to Health Maintenance Insurance [facility]
--- OUTSIDE RECORDS SUMMARY | 2025-02-05 21:12 | XMS_ITS | Continuity of Care Document ---
Author Organization [facility], [facility] ([facility]) Address [address] [place] [address] Care Team Providers Care Jboss Developer Name Role Phone HA COOPER Primary Care Provider Unavailabl e Assessment Encounter Date Assessment Date Assessment LastModified by Organization Details LastModified Time 02/01/2025 02/01/2025 Document scribed by Buzz Quiroz Business Process Representative. I was present during interview and exam. I have reviewed and agree with above documentation . Dr. Ha Cooper. [email or web address] Not available 02/01/2025 14:36:08 Plan of Treatment Reminders Order Date Submit Date Provider Last Modified By Organization Details Last Modified Time Details Appointments None recorded. Lab None recorded. Referral None recorded. Procedures None recorded. Surgeries None recorded. Imaging None recorded. Medication Orders Carafate 1 gram tablet [email or web address] [facility], [address], [place], [address], 15:06:39 Patient TargetsNo targets recorded. Patient InstructionsNo instructions recorded. Reason for Referral None Reported. Problems Name Problem SNOMED Code Status Onset Date Resolution Date Notes Provider Name and Address Organization Details Recorded Time Ligation of left fallopia n tube Completed 198907/20/2024 Tubaliga tion; Date: 1989; 05/14/19 10:09AM by Mayela Jaquez, Office Visit; Promoted ; acuity set as *; Kita perez, [facility] 5 11:17:34 Ovarian cyst NOS Completed 200207/20/2024 Ovarian Cysts; bilat.; Date: 05/14/19 10:09AM by Mayela Jaquez, Office Visit; Promoted ; acuity set as *; Kita Moncadamaulik perez [facility] 5 11:19:06 Kidney stone 85137882 Completed 200207/20/2024 Renal Stones; Date: 05/14/19 10:09AM by Mayela Jaquez, Office Visit; Promoted ; acuity set as *; Kita perez [facility] 5 11:17:28 Pain of sacroili ac joint 075310366 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 5 11:20:47 Chronic intersti tial cystitis 034861788 [facility] 2022 [facility] 11:19:56 Chronic diarrhea 215571412 Completed 202207/20/2024 Kita perez [facility] 5 11:19:52 Low back pain 502495287 Active 2022 Kita perez [facility] 5 11:19:02 Recurren t urinary tract infectio n 208913734 Active 2022 Kita perez [facility] 5 11:19:25 Cholangi tis due to bile duct calculus with obstruct ion 83352146771 45077 Completed 202307/20/2024 Kita perez, [facility] 5 11:19:44 Acute sinusiti s 07726463 Active 2023 Kita Webb [facility], [facility] 5 11:17:23 Diarrhea 18117798 Active 2023 Kita Moncadae null, [facility] 5 11:20:50 Pneumoni tis 417969257 Active 2023 Kita Webb [facility], [facility] 5 11:19:18 Pain of bilatera l hands 79379052834 608443 Active 2023 Kita Webb [facility] 5 11:19:14 Inflamma tory polyarth ropathy 549093853 Active 2023 Kita Webb [facility], [facility] 5 11:20:18 Pain in right sacroili ac joint 49367740982 986394 Active 2023 Kitaraj Webb [facility] 5 11:19:10 Dysuria 31486563 Active 2023 Kitaraj Moncadae [facility], [facility] 5 11:20:11 Rib pain 457180147 Active 2023 Kita Webb [facility], [facility] 5 11:21:37 Gastroes ophageal reflux disease 589545929 Active 2023 Kita Webb [facility], [facility] 5 11:20:14 Osteoart hritis 724854635 Active 2024 Ha Cooper, [address], [address], [facility] 13:00:28 Morbid obesity 101790080 Active 2024 Ha Cooper [address], [address], [facility] 13:07:10 Osteoart hritis of joint of bilatera l hands 23562984648 9109 Active 2024 Ha Cooper [address], [address], [facility] 13:35:22 Allergic rhinitis 10590495 Active 2024 Kita perez [facility] 11:27:29 Left side sciatica 83866491160 9104 Active 2024 Ha Cooper [address], [address], [facility] 00:05:15 Trochant saud bursitis of left hip 16959456137 9103 Active 2024 Ha Cooper [address], [address], [facility] 08:02:07 Problem Notes None recorded. Procedures Surgical History Date Name Laterality Status Provider Name and Address Organization Details Recorded Time 2024 Joint Inj Kenalog- Shoulder, Hip, Knee completed Buzz Quiroz [facility] 16:29:59 2024 Joint Inj Kenalog- Shoulder, Hip, Knee completed Ha Cooper [address], [address] , [facility] 5 17:58:18 2023 Joint Inj Kenalog- Shoulder, Hip, Knee completed Ha Cooper DO [address] [place], [address] , [facility] 4 16:48:46 2023 Cholecystectomy completed Brimelo Jorge [facility] 4 17:17:34 2023 Joint Inj Kenalog- Shoulder, Hip, Knee completed Buzz Quiroz [facility] 4 14:38:46 2022 Most Recent Mammogram completed CLARK MONCADA [facility] 3 13:09:53 2022 Joint Inj Kenalog- Shoulder, Hip, Knee completed HOLLY VALDEZ [address] [place], [address] , [facility] 3 15:21:26 1989 Caesarean Section completed Brimelo Jorge [facility] 4 17:18:05 endoscopic retrograd e cholangiopancreatography completed [facility] Ania [facility] 4 17:17:44 Imaging Results None recorded. Procedure Notes None recorded. Medical Equipment None Reported. Allergies Allergen ID Allergen Name Allergen Category Reaction Reaction Severity Criticality Documentation Date Start Date Code Code System Note Provider Name and Address Organization Details Recorded Time 282 doxycycli ne Not available rash mild low 07/17/2022 3640 RxNorm Bri perez [facility] 4 17:14:32 284 Levaquin medicatio n dizziness vomiting mild moderate low 07/17/2022 84322 2 RxNorm Bri perez [facility] 4 17:14:57 287 Zoloft medicatio n hives moderate Not available 07/17/2022 26511 RxNorm turn s me beat red and I itch Bri perez, [facility] 4 17:16:31 288 Substance with sulfonami de structure and antibacte rial mechanism of action (substanc e) medicatio n itching moderate low 07/17/2022 95725 8003 SNOMED Redne ss, itchi ng and swell ing. Bri perez, [facility] 4 17:15:36 45873 sertralin e hydrochlo ride medicatio n Not available Not available Not available 11/23/2022 82001 7 [facility]Norm [facility] 17:16:17 02742 Bactrim medicatio n rash mild low 11/23/2022 87550 9 RxNorm Bri perez, [facility] 4 17:14:24 41365 nitrofura ntoin medicatio n other Not available Not available 04/12/[address] Augustine seals [facility] s it stopp ed worki ng [facility] 17:16:04 810 meloxicam medicatio n edema headache hives moderate moderate moderate high 07/27/2022 11109 RxNorm Ha Cooper DO [address] [place] [address], [address] , [facility] 5 11:43:05 Medications Name Sig Start [...] 2024 active Not Available Not Available Not Perezai lable 24 Hour Allergy Relief 50 mcg/actua tion nasal spray,scottie pension [place] 1 spray every day by intranas al route. active Not Available Not Available No t Available Vitals Date Recorded Body height Body mass index (BMI) Body weight Oxygen saturation Oxygen saturation in Arterial blood by Pulse oximetry Heart rate Respiratory rate Systolic And Diastolic Provider Name and Address Organization Details Last Updated DateTime 5 157.48 cm 35.5 kg/m2 79263.9 2 g 99 % 99 % 80 /min 18 /min 120/80 mm[Hg] Kita Webb [facility] 14:19:45 Social History Question Answer Notes LastModified by Organizat ion Details LastModified Time Tobacco Smoking Status Never Smoker MERARI perez [facility] 03/19/2023 11:56:48 What Was The Date Of Your Most Recent Tobacco Screening? 01/22/2025 [email or web address] Information not available 01/22/2025 Sex: Unknown Functional Status Question Answer Note LastModified by Organizat ion Details LastModified Time Do you use any illicit or recreational drugs? No [email or web address] Information not available 08/27/2022 Do you or have you ever used any other forms of tobacco or nicotine? No [email or web address] Information not available 08/27/2022 What is your level of alcohol consumption? None [email or web address] Information not available 08/27/2022 Mental Status None recorded. Family History Nothing Reported. Medical History Condition Response Coronary Artery Disease N Gout N Other N Blood Diseases N Kidney Stones N Hyperthyroidism N Blood Transfusion N Breast Cancer N Depression N COPD N Lung Disease N Hypothyroidism N Developmental or Behavioral Disorders N Defects or Inherited Disease N Breast Problem N Difficulty Swallowing N Anesthesia Complications N Anxiety Disorder N Meniere's disease N Muscle, Joint, or Bone Problems N Vision or Eye Problems N Arthritis N Polyps N Infertility N Cancer N Varicosities N Stroke N Endometriosis N Bladder or Kidney Problems N High Cholesterol N Liver Disease N Headaches N Fibromyalgia N Kidney Disease N Allergies/Hayfever N Heart [...] ICD10 Code Diagnosis IMO Codes Diagnosis Note [id number] HOLLY DIAS [facility] ([facility]) [address] [place] [address] 01/22/2025 12:37:16 01/22/2025 13:46:18 Nausea 040837468 R11.0 83513 Dizziness 216115842 R42 62818 middle ear right effusion present. Will send in meclizine. Weakness o f bilateral lower limb 9001566272 69549 R29.898 052861 Discussed use of otc magnesium for muscle cramps. However, discussed with patient need for further evaluation if continued weakness occurs, worsens or moves up the legs. Will monitor symptoms and follow up with PCP or present to ER as discussed if this happens. [id number] Ha Cooper DO [facility] ([facility]) [address] [place] [address] 02/01/2025 14:08:45 02/02/2025 10:32:43 Gastroesophageal reflux disease 117657055 K21.9 [id number] 02/01/25: Counseled start Probiotic twice daily, continue Lansoprazo le, take it twice daily for one week then back to once daily, Sucralfate as needed. If abd symptoms not improving consider returning to [facility] for evaluation .04/06/24- continue Lansoprazo le, counseled elevate HOB, no eating 3-4 hours prior to bed, will start Carafate before bed and before meals. Diarrhea 95593528 R19.7 Health Concerns Section Related Observation LastModified by Organization Detai ls LastModified Time None Recorded Concern Status LastModified by Organization Details LastModified Time None Recorded Payers Encounter Date Sequence Insurance Name Policy Number Policy Vasquez Covered Member ID Vasquez Member ID Guarantor Name 02/01/2025 1 FÉLIX KRUSE FROM [facility] [employer] [employer] (EPO) Dori Rodríguez [id number] 2 Dori Rodríguez Notes Date Note Type Note Provider Name and Address Organization Details Recorded Time 02/01/2025 text/html ROS as noted in the HPI Pt presents for stomach She gets nauseated or has diarrhea every time she eats, onset 2-3 weeks ago. She also does not eat much since her stomach hurts when she is eating and has to stop. Seen in [place] on 01/22/25, fluid right ear, tx with Meclizine and Ondansetron. She went to [facility] and received Amoxicillin and sinus med otc with Flonase. She is still using Claritin and Flonase. She did not finish the Amoxicillin, reports it made her stomach hurt. Continues Lansoprazole, no longer taking Sucralfate.Not taking Probiotic. ERCP 06/09/23 with [facility]. She recalls CBD being full of stones.No recent f/u with GI regarding stomach issues, reports he wasn't having any until this past week. Ha Cooper, DO [address] [place] [address], [phone], [facility] - [facility], [place] 02/02/2025 09:29:31 OBGyn Episode No OBEpisode recorded.
--- NOTE | 2025-02-05 22:13 | W.ED.ANIMALB ---
HPI - Animal Bite General: Chief Complaint: Animal Bite Stated Complaint: R shoulder Pain Time Seen by Provider: 02/05/25 21:57 History of Present Illness: Patient is a 59-year-old female who presents with concern about an object that flew into her back yesterday evening while she was sitting on her porch. She reports a burning sensation at the site and is anxious about the possibility of bat exposure. She states she cannot visualize the area herself. The patient denies seeing what struck her back. She reports the area has been burning and itching since the incident. She was clothed at the time of the incident. Patient denies any visible puncture wound or bleeding. She denies respiratory distress or pain with breathing. Patient appears anxious about the possibility of rabies exposure, which prompted today's visit. Related Data Home Medications ?Medication ?Instructions ?Recorded ?Confirmed lansoprazole 30 mg capsule,delayed 30 mg PO DAILY 12/21/19 02/02/24 release albuterol sulfate 90 mcg/actuation 2 inh inhalation Q6H PRN Shortness 03/03/23 02/02/24 breath activated powder inhaler Of Breath fluticasone propionate 50 1 spray intranasal DAILY 12/18/23 02/02/24 mcg/actuation nasal spray,suspension loratadine 10 mg tablet (Claritin) 10 mg PO DAILY 12/18/23 02/02/24 Previous Rx's ?Medication ?Instructions ?Recorded estradiol 2 mg (7.5 mcg/24 hour) 1 vag ring vaginal Q90D #1 ea 02/02/24 vaginal ring (Estring) Allergies Allergy/AdvReac Type Severity Reaction Status Date / Time doxycycline Allergy ALGY-Redness Verified 02/02/24 16:28 of Skin nitrofurantoin (From Allergy CAUSES Verified 02/02/24 16:28 Macrobid) REDNESS AND RASH TO GRIISH AREA Sulfa (Sulfonamide Allergy rash Verified 02/02/24 16:28 Antibiotics) levofloxacin AdvReac Mild ADV-Weaknes Verified 02/02/24 16:28 s prednisone AdvReac Palpitation Verified 02/02/24 16:28 s [facility] ED PFSH: Medical History (Updated 02/05/25 @ 23:05 by Nabil Valentino DO) Gallbladder polyp Overactive bladder Pelvic pain Well woman exam without gynecological exam Vaginal dryness, menopausal Atrophy of vagina Vulvar pruritus Chronic cystitis Diagnosed in [address] Christiansen Recurrent UTI Vulvodynia Chronic back pain Managed by pain medication by PMD and pain management Anxiety Controlled on p.o. pain medication as needed managed by PMD No pertinent past medical history Denies diabetes, asthma, hypertension, seizures, DVT/PE Her primary care provider is Dr. Cooper. Surgical History S/P tubal ligation 06/24/1989--Performed by Dr. Bach at [facility] at time of section. S/P section 06/24/1989--performed by Dr. Bach at [facility] Family History Mother , at age 92 Diabetes Heart disease Stroke Alzheimer disease Sister Lung cancer Father , at age 89 COPD (chronic obstructive pulmonary disease) Denies family history of Colon cancer Ovarian cancer Hyperlipidemia Breast cancer Uterine cancer Thyroid disease Social History Smoking and tobacco/nicotine status: never used tobacco/nicotine Alcohol intake: never Substance/Drug Use: never Lives independently: Yes Household members: spouse Marital status: Current occupational status: retired Physical Exam Const: COMMON NORMALS: no acute distress GENERAL APPEARANCE: cooperative; not ill appearing and not frail appearing HENMT: COMMON NORMALS: normocephalic, atraumatic and Normal external nose present HEAD & SCALP: normocephalic and atraumatic FACE & SINUS: normal facial exam and face symmetric NOSE: Normal external nose present Eye: COMMON NORMALS: Equal, round and reactive pupils present and EOMs intact bilaterally PUPIL: Yes Equal, round and reactive pupils present Neck/C-Spine: GENERAL: Yes trachea midline Chest: CHEST: Yes Symmetrical chest wall rise Resp: COMMON NORMALS: normal respiratory effort, No retractions, No use of accessory muscles and clear to auscultation bilaterally AUSCULTATION: clear to auscultation bilaterally Cardio: COMMON NORMALS: regular rate and regular rhythm RATE: regular rate RHYTHM: regular rhythm GI: COMMON NORMALS: Normal to inspection, nondistended, normoactive bowel sounds present Extremity: COMMON NORMALS: no pedal edema Neuro: OLEKSANDR COMA SCALE: document GCS findings Morse coma scale eye opening: Spontaneous Morse coma scale verbal response: Orientated Morse coma scale motor response: Obey commands Oleksandr coma scale total score: 15 SENSORY EXAM: Yes extremities (intact) Psych: COMMON NORMALS: speech normal SPEECH: Yes normal speech Skin: COMMON NORMALS: no rashes or lesions noted GENERAL SKIN EXAM: no rashes or lesions noted Course Vital Signs: Vital signs: Vital Signs Temperature 97.6 F 02/05/25 21:12 Pulse Rate 81 02/05/25 21:12 Respiratory Rate 16 02/05/25 21:12 Blood Pressure 171/76 02/05/25 21:12 Pulse Oximetry 100 02/05/25 21:12 Oxygen Delivery Me thod Room Air 02/05/25 21:12 MDM - Animal Bite Medical Decision Making no evidence of contusion to the tender area. No skin breakdown or puncture wound. She is very concerned, as they have seen bats in this area. In this case, would consider a moderate risk of exposure. She will be given rabies IG, and first vaccination. Instructions given forfollowing vaccinations and orders are written. She knows to return for any new symptoms, especially fever. No radiology studies performed this visit Discharge Plan Discharge Patient Disposition: Home Clinical Impression: Accidental physical contact with animal Condition: Stable Prescriptions: No Action lansoprazole 30 mg capsule,delayed release(DR/EC) 30 mg PO DAILY loratadine [Claritin] 10 mg tablet 10 mg PO DAILY fluticasone propionate 50 mcg/actuation spray,suspension 1 spray intranasal DAILY Rx Instructions: administer into each nostril albuterol sulfate 90 mcg/actuation aerosol powdr breath activated 2 inh inhalation Q6H PRN (Reason: Shortness Of Breath) Estring 2 mg (7.5 mcg /24 hour) ring 1 vag ring vaginal Q90D Qty: 1 3RF Discharge Orders: Discharge ED (Routine); Ordered 02/05/25 Ordered By: aNbil Valentino Referrals: Misbah Cooper DO [Primary Care Provider, Family Practice] - 1-3 days Patient Instructions: Opioid Safety, Pain Management, Patient Portal & Loretta Instructions Activity Restrictions/Additional Instructions: Because of the risk of your exposure, you were given rabies Ig treatment as well as rabies vaccination. Follow the vaccination schedule listed for you with your discharge paperwork. These are done in the infusion center at the hospital. Return for any problems, especially fever, worsening redness or swelling, change in mental status, any other concerning symptoms. Follow-up with your doctor. You may take Tylenol or ibuprofen for any discomfort. Print Language: Welsh Coding Level of Care Code ED Underwriter [employer] for Rafia De Luna
[2025-02-05] MEDS: rabies vaccine 2.5 unit SDV IM (22:45)
[2025-02-05] MEDS: rabies IG 300 unit/mL SDV 1 mL 1740 UNIT IM (22:46)
== END 2025-02-05 23:09 | disposition home or self-care (01) ==
PROVIDERS: Emergency Provider Emergency Medicine; PCP Electrodiagnostic Medicine
DX: M25.511 Pain in right shoulder (principal); Z23 Encounter for immunization; Z29.14 Encounter for prophylactic rabies immune globulin
CPT/HCPCS: 90375; 90471; 90675; 96372; 99283

== ENCOUNTER 2025-02-21 11:30 | Oncology outpatient (recurring) (ONCR) | payer OTHER, SELFPAY ==
[2025-02-08] MEDS: rabies vaccine 2.5 unit SDV IM (13:13)
[2025-02-14] MEDS: rabies vaccine 2.5 unit SDV IM (10:59)
[2025-02-21] MEDS: rabies vaccine 2.5 unit SDV IM (11:29)
== END 2025-02-25 23:59 | disposition home or self-care (01) ==
PROVIDERS: PCP Electrodiagnostic Medicine; Visit Provider Emergency Medicine
DX: Z23 Encounter for immunization; Z20.3 Contact with and (suspected) exposure to rabies; Z53.9 Procedure and treatment not carried out, unspecified reason
CPT/HCPCS: 90471; 90675

== ENCOUNTER 2025-04-05 11:16 | Outpatient (CLI) | payer OTHER, SELFPAY ==
--- NOTE | 2025-04-05 11:21 | MM_ITS ---
WS: [id number] BILATERAL 3D TOMOSYNTHESIS DIGITAL SCREENING MAMMOGRAPHY WITH CAD CLINICAL INFORMATION: SCREENING HISTORY: Screening mammogram. No current complaints. COMPARISON: 2023 TECHNIQUE: Bilateral CC and MLO views. FINDINGS: The breasts are composed of heterogeneous fibroglandular density tissue, which can limit the detection of small underlying mass lesions. No suspicious mass, asymmetry, calcifications, or architectural distortion. No evidence of malignancy. Punctate and lucent centered calcifications. MM/MM [facility] tomosynthesis 37333 IMPRESSION: DENSITY: The breasts are heterogeneously dense, which may obscure small masses. BI-RADS: 2 - Benign FOLLOW UP: 1 Year Follow-up Recommend return to annual screening mammography.
== END 2025-04-05 11:17 | disposition home or self-care (01) ==
LOC: RAD 11:17
PROVIDERS: PCP Electrodiagnostic Medicine; Visit Provider Electrodiagnostic Medicine
DX: Z12.31 Encounter for screening mammogram for malignant neoplasm of breast (principal); R92.333 Mammographic heterogeneous density, bilateral breasts; R92.323 Mammographic fibroglandular density, bilateral breasts; R92.1 Mammographic calcification found on diagnostic imaging of breast
CPT/HCPCS: 77063; 77067